=== PATIENT | male | born 1930 | race Caucasian/White ===

== ENCOUNTER 2016-12-28 17:44 | Inpatient (IN) | payer MEDICARE, BC ==
[2016-12-28] MEDS ORDERED: Sodium Chloride 0.9% 10 ML Syringe FLUSH PRN (18:05)
[2016-12-28] MEDS ORDERED: Sodium Chloride 0.9% 2.5 ML Syringe FLUSH PRN (18:05)
[2016-12-28] MEDS ORDERED: Albuterol/Ipratropium 3.0-0.5 MG/3 ML Neb Soln NEB ONE (18:13)
--- NOTE | 2016-12-28 18:14 | EDM.PDOC ---
<Esthela Singletary - Last Filed: 12/28/16 18:57> ED HISTORY OF PRESENT ILLNESS - General Chief Complaint: Respiratory Problem Stated Complaint: COUGH/SICK/SHORT OF BREATH Time Seen by Provider: 12/28/16 18:07 - History of Present Illness INITIAL COMMENTS - FREE TEXT/NARRATIVE: HISTORY AND PHYSICAL: History of present illness: The patient is an 86-year-old male with a history of hypertension high cholesterol A. fib on Coumadin diabetes and recent admission for influenza pneumonia; the patient presents today stating that he has a renewed cough and feels short of breath and "sick". According to the discharge note the patient was admitted for 2-1/2 days and was discharged one day early on every 20 seconds to do his request. He was doing well at that time. He finished his Tamiflu yesterday. During his admission he did have an episode of A. fib/A. flutter with RVR which responded to Cardizem and he was placed on metoprolol at discharge which he did not take today because his blood pressure was too low. The patient normally takes his diltiazem in the evening so he has not taken that this evening either. The patient states he's been eating well and has not had abdominal pain vomiting or diarrhea he does have a persistent cough which is dry and nonproductive and he feels somewhat short of breath. He states he the same symptoms he had when he was in the hospital. He has no leg pain or swelling and has had no falls. Patient is here with at bedside. The patient denies any palpitations or racing heart and is not lightheaded or dizzy. He doesn't have any focal weakness in any of his extremities but does feel somewhat run down. Review of systems: As per history of present illness and below otherwise all systems reviewed and negative. Past medical history: As per history of present illness and as reviewed below otherwise noncontributory. Surgical history: As per history of present illness and as reviewed below otherwise noncontributory. Social history: No reported history of drug or alcohol abuse. Family history: As per history of present illness and as reviewed below otherwise noncontributory. Physical exam: General: Well-developed well-nourished man who speaks clearly without breathlessness and has a dry cough heard in the ER. He speaks clearly and easily on my evaluation it appears nontoxic. HEENT: Atraumatic, normocephalic, pupils reactive, negative for conjunctival pallor or scleral icterus, mucous membranes moist, throat clear, neck supple, nontender, trachea midline. No cervical adenopathy Lungs: Clear to auscultation with scattered coarse breath sounds and diminished breath sounds at the bases but no work of breathing or sensory muscle use, breath sounds equal bilaterally, chest nontender. Heart: S1S2, regular rate but irregular rhythm on my evaluation, negative for clicks, rubs, or JVD. Abdomen: Soft, nondistended, nontender. Negative for masses or hepatosplenomegaly. NABS Skin: Slightly pale in color but no evidence of any overt rashes and turgor appears normal Genitourinary: Deferred. Rectal: Deferred. Extremities: Atraumatic, negative for cords or calf pain. Neurovascular unremarkable. Neuro: Awake, alert, oriented. Cranial nerves II through XII unremarkable. Cerebellum unremarkable. Motor and sensory unremarkable throughout. Exam nonfocal. Diagnostics: EKG CBC CMP INR troponin lactic acid blood cultures if indicated chest x-ray [employer]: Rebecca neb 1900 hours--case was endorsed to Dr. Antony who will followup the pending test results and disposition the patient. Impression: Definitive disposition and diagnosis as appropriate pending reevaluation and review of above. - Related Data Allergies/ADRs: Allergies Allergy/AdvReac Type Severity Reaction Status Date / Time acetaminophen Allergy Headache Verified 12/28/16 17:58 [From Excedrin Back and Body] aspirin Allergy Headache Verified 12/28/16 17:58 [From Excedrin Back and Body] calcium carbonate Allergy Headache Verified 12/28/16 17:58 [From Excedrin Back and Body] moexipril [From Univasc] Allergy Cough Verified 12/28/16 17:58 terazosin [From Hytrin] Allergy Rash Verified 12/28/16 17:58 Home Meds: Home Meds Aspirin [Halfprin] 81 mg PO BEDTIME 12/23/16 [History] Calcitriol [Rocaltrol] 0.25 mcg PO DAILY 12/23/16 [History] Cholecalciferol (Vitamin D3) [Vitamin D3] 1,000 unit PO QAM 12/23/16 [History] Diltiazem [Dilacor XR] 240 mg PO DAILY 12/23/16 [History] Dutasteride 0.5 mg PO DAILY 12/23/16 [History] Folic Acid 1 mg PO DAILY 12/23/16 [History] Furosemide [Lasix] 20 mg PO QAM 12/23/16 [History] Gemfibrozil 600 mg PO BID 12/23/16 [History] Insulin Glargine,Hum.Rec.Anlog [Toujeo Solostar] 14 unit SQ BEDTIME 12/23/16 [ History] Linagliptin [Tradjenta] 5 mg PO DAILY 12/23/16 [History] Lisinopril 1.25 mg PO DAILY 12/23/16 [History] Sodium Bicarbonate 1,300 mg PO BID 12/23/16 [History] Tamsulosin [Flomax] 0.8 mg PO BEDTIME 12/23/16 [History] Warfarin [Coumadin] 7.5 mg PO SUMOTUTHFR 12/23/16 [History] Warfarin [Coumadin] 10 mg PO WESA 12/23/16 [History] amLODIPine [Norvasc] 5 mg PO DAILY 12/23/16 [History] Beta-Carotene(A) w/C & E/Min [Prosight] 1 tab PO BID tablet 12/26/16 [Rx] Metoprolol Succinate 50 mg PO DAILY #30 tab.er.24h 12/26/16 [Rx] Oseltamivir [Tamiflu] 30 mg PO DAILY #1 bottle 12/26/16 [Rx] Patient's Own Medication [Ptom] 0 each SUBCUT BEDTIME each 12/26/16 [Rx] Warfarin [Coumadin] 7.5 mg PO DAILY@1400 tablet 12/26/16 [Rx] Past Medical History - Past Health History Medical/Surgical History: Denies Medical/Surgical History HEENT History: Reports: Impaired vision, Other (see below) 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, 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 Cardiovascular History: Reports: Afib, Hypertension, ID, Pacemaker Neurological History: Reports: TIA Endocrine/Metabolic History: Reports: Diabetes, type II Oncologic (Cancer) History: Reports: Other (see below) Other Oncologic History: bladder and kidney CA - Infectious Disease History Infectious Disease History: Reports: Chicken pox, Measles, Mumps - Past Surgical History Cardiovascular Surgical History: Reports: Pacer Male Surgical History: Reports: Other (see below) Other Male Surgeries/Procedures: removal of kidney Oncologic Surgical History: Reports: Other (see below) Other Oncologic Surgeries/Procedures: 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 Social & Family History - Family History Family Medical History: Noncontributory - Tobacco Use Smoking Status *Q: Former Smoker Years of Tobacco use: 50 Packs/Tins Daily: 3 Used Tobacco, but Quit: Yes Month Tobacco Last Used: 1999 Second Hand Smoke Exposure: No - Caffeine Use Caffeine Use: Reports: Coffee Other Caffeine Use: 1-2 cups daily Caffeine Use Comment: 2cups/day - Recreational Drug Use Recreational Drug Use: No Course - Vital Signs Last Recorded V/S: Last Vital Signs Temp 36.6 C 12/28/16 17:58 Pulse 100 12/28/16 19:43 Resp 20 12/28/16 19:43 BP 124/16 L 12/28/16 19:43 Pulse Ox 96 12/28/16 19:43 - Orders/Labs/Meds Orders: Active Orders 24 hr Category Date Time Status Cardiac Monitoring [RC] . DIRECTED Care 12/28/16 18:05 Active EKG Documentation Completion [RC] STAT Care 12/28/16 18:05 Active Oxygen Therapy, ED [RC] ASDIRECTED Care 12/28/16 18:05 Active Pulse Oximetry [RC] ASDIRECTED Care 12/28/16 18:05 Active RT Aerosol Therapy [RC] ASDIRECTED Care 12/28/16 18:14 Active Chest 2V [CR] Stat Exams 12/28/16 18:06 Taken CPK [CREATINE KINASE,CK] [CHEM] Stat Lab 12/28/16 18:32 Received Sodium Chloride 0.9% [Normal Saline] 1,000 ml Med 12/28/16 20:45 Active IV STAT Sodium Chloride 0.9% [Saline Flush] Med 12/28/16 18:05 Active 10 ml FLUSH ASDIRECTED PRN Sodium Chloride 0.9% [Saline Flush] Med 12/28/16 18:05 Active 2.5 ml FLUSH ASDIRECTED PRN Saline Lock Insert [OM.PC] Stat Oth 12/28/16 18:05 Ordered Medication Orders Sodium Chloride (Normal Saline) 1,000 mls @ 125 mls/hr IV STAT DAJUAN Sodium Chloride (Saline Flush) 10 ml FLUSH ASDIRECTED PRN PRN Reason: Keep Vein Open Sodium Chloride (Saline Flush) 2.5 ml FLUSH ASDIRECTED PRN PRN Reason: Keep Vein Open Labs: Laboratory Tests 12/28/16 12/28/16 12/28/16 Range/Units 18:32 18:32 18:32 WBC 8.47 (4.0-11.0) K/uL RBC 3.53 L (4.50-5.90) M/uL Hgb 10.5 L (13.0-17.0) g/dL Hct 32.0 L (38.0-50.0) % MCV 90.7 (80.0-98.0) fL MCH 29.7 (27.0-32.0) pg MCHC 32.8 (31.0-37.0) g/dL RDW Std Deviation 49.1 (28.0-62.0) fl RDW Coeff of Davy 15 (11.0-15.0) % Plt Count 197 (150-400) K/uL MPV 10.90 (7.40-12.00) fL Add Manual Diff YES Neutrophils % (Manual) 66 (48.0-80.0) % Band Neutrophils % 2 % Lymphocytes % (Manual) 23 (16.0-40.0) % Monocytes % (Manual) 7 (0.0-15.0) % Eosinophils % (Manual) 2 (0.0-7.0) % Nucleated RBC % 0.0 /100WBC Absolute Seg Neuts 5.6 Band Neutrophils # 0.2 Lymphocytes # (Manual) 1.9 Monocytes # (Manual) 0.6 Eosinophils # (Manual) 0.2 Nucleated RBCs # 0 K/uL INR 3.46 H (0.86-1.11) Lactate 1.3 (0.20-2.00) mmol/L Sodium (136-146) mmol/L Potassium (3.5-5.1) mmol/L Chloride (98-110) mmol/L Carbon Dioxide (21-31) mmol/L BUN (6.0-23.0) mg/dL Creatinine (0.6-1.5) mg/dL Est Cr Clr Drug Dosing mL/min Estimated GFR (MDRD) ml/min Glucose (60-110) mg/dL Calcium (8.8-10.8) mg/dL Total Bilirubin (0.1-1.5) mg/dL AST (5-40) IU/L ALT (8-54) IU/L Alkaline Phosphatase (40-150) Troponin I (0.0-0.29) NG/ML Total Protein (6.0-8.0) g/dL Albumin (3.4-4.8) g/dL Globulin (2.0-3.5) g/dL Albumin/Globulin Ratio (1.3-2.8) Urine Color Urine Appearance Urine pH (5.0-8.0) Ur Specific [place] (1.001-1.035) Urine Protein (NEGATIVE) mg/dL Urine Glucose (UA) (NEGATIVE) mg/dL Urine Ketones (NEGATIVE) mg/dL Urine Occult Blood (NEGATIVE) Urine Nitrite (NEGATIVE) Urine Bilirubin (NEGATIVE) Urine Urobilinogen (<2.0) EU/dL Ur Leukocyte Esterase (NEGATIVE) Urine RBC (0-2/HPF) Urine WBC (0-5/HPF) Ur Epithelial Cells (NONE-FEW) Urine Bacteria (NEGATIVE) 12/28/16 12/28/16 12/28/16 Range/Units 18:32 18:32 18:47 WBC (4.0-11.0) K/uL RBC (4.50-5.90) M/uL Hgb (13.0-17.0) g/dL Hct (38.0-50.0) % MCV (80.0-98.0) fL MCH (27.0-32.0) pg MCHC (31.0-37.0) g/dL RDW Std Deviation (28.0-62.0) fl RDW Coeff of Davy (11.0-15.0) % Plt Count (150-400) K/uL MPV (7.40-12.00) fL Add Manual Diff Neutrophils % (Manual) (48.0-80.0) % Band Neutrophils % % Lymphocytes % (Manual) (16.0-40.0) % Monocytes % (Manual) (0.0-15.0) % Eosinophils % (Manual) (0.0-7.0) % Nucleated RBC % /100WBC Absolute Seg Neuts Band Neutrophils # Lymphocytes # (Manual) Monocytes # (Manual) Eosinophils # (Manual) Nucleated RBCs # K/uL INR (0.86-1.11) Lactate (0.20-2.00) mmol/L Sodium 140 (136-146) mmol/L Potassium 3.8 (3.5-5.1) mmol/L Chloride 108 (98-110) mmol/L Carbon Dioxide 18 L (21-31) mmol/L BUN 70 H (6.0-23.0) mg/dL Creatinine 2.8 H (0.6-1.5) mg/dL Est Cr Clr Drug Dosing 16.77 mL/min Estimated GFR (MDRD) 21.5 ml/min Glucose 124 H (60-110) mg/dL Calcium 8.9 (8.8-10.8) mg/dL Total Bilirubin 0.5 (0.1-1.5) mg/dL AST 53 H (5-40) IU/L ALT 49 (8-54) IU/L Alkaline Phosphatase 70 (40-150) Troponin I < 0.10 (0.0-0.29) NG/ML Total Protein 7.5 (6.0-8.0) g/dL Albumin 4.2 (3.4-4.8) g/dL Globulin 3.3 (2.0-3.5) g/dL Albumin/Globulin Ratio 1.3 (1.3-2.8) Urine Color YELLOW Urine Appearance CLEAR Urine pH 5.5 (5.0-8.0) Ur Specific [place] 1.010 (1.001-1.035) Urine Protein TRACE (NEGATIVE) mg/dL Urine Glucose (UA) NEGATIVE (NEGATIVE) mg/dL Urine Ketones NEGATIVE (NEGATIVE) mg/dL Urine Occult Blood NEGATIVE (NEGATIVE) Urine Nitrite NEGATIVE (NEGATIVE) Urine Bilirubin NEGATIVE (NEGATIVE) Urine Urobilinogen 0.2 (<2.0) EU/dL Ur Leukocyte Esterase NEGATIVE (NEGATIVE) Urine RBC 0-2 (0-2/HPF) Urine WBC 0-1 (0-5/HPF) Ur Epithelial Cells RARE (NONE-FEW) Urine Bacteria RARE (NEGATIVE) Meds: Medications Generic Name Dose Route Start Last Admin Trade Name Freq PRN Reason Stop Dose Admin Sodium Chloride 1,000 mls @ 125 mls/hr 12/28/16 20:45 Normal Saline IV STAT DAJUAN Sodium Chloride 10 ml 12/28/16 18:05 Saline Flush FLUSH ASDIRECTED PRN Keep Vein Open Sodium Chloride 2.5 ml 12/28/16 18:05 Saline Flush FLUSH ASDIRECTED PRN Keep Vein Open Discontinued Medications Generic Name Dose Route Start Last Admin Trade Name Kiana PRN Reason Stop Dose Admin Albuterol/Ipratropium 3 ml 12/28/16 18:13 12/28/16 18:24 Duoneb 3.0-0.5 Mg/3 Ml NEB 12/28/16 18:14 3 ml ONETIME ONE Administration Metoprolol Tartrate 5 mg 12/28/16 18:18 12/28/16 18:53 Lopressor IVPUSH 12/28/16 18:19 5 mg ONETIME ONE Administration Departure - Departure Disposition: Admitted As Inpatient 65 Clinical Impression: Dehydration Forms: ED Department Discharge - My Orders Last 24 Hours: My Active Orders 12/28/16 18:32 CPK [CREATINE KINASE,CK] [CHEM] Stat 12/28/16 20:45 Sodium Chloride 0.9% [Normal Saline] 1,000 ml IV STAT - Assessment/Plan Last 24 Hours: My Active Orders 12/28/16 18:32 CPK [CREATINE KINASE,CK] [CHEM] Stat 12/28/16 20:45 Sodium Chloride 0.9% [Normal Saline] 1,000 ml IV STAT <Salvador Antony - Last Filed: 12/28/16 20:41> ED HISTORY OF PRESENT ILLNESS - History of Present Illness INITIAL COMMENTS - FREE TEXT/NARRATIVE: Patient admitted normal saline 125 cc per hour started Assessment Dehydration A. fib with RVR Renal insufficiency Influenza positive At infiltrate on chest x-ray Patient admitted inpatient [facility] ED ROS GENERAL - Review of Systems Review Of Systems: ROS reveals no pertinent complaints other than HPI. ED EXAM, GENERAL - Physical Exam Exam: See Below Departure - Departure Time of Disposition: 20:41 Condition: poor
[2016-12-28] MEDS ORDERED: Metoprolol Tartrate 5 MG/5 ML SDV IVPUSH ONE (18:18)
[2016-12-28] MEDS ORDERED: Sodium Chloride 0.9% 1,000 ML IV SCH ×2 (20:45→22:00)
--- NOTE | 2016-12-28 21:44 | PCM.HP ---
H&P History of Present Illness - General Date of Service: 12/28/16 Admit Problem/Dx: Admission Diagnosis/Problem Admission Diagnosis/Problem Influenza Source of Information: Patient, Family, Old records, Provider - History of Present Illness Initial Comments - Free Text/Narative: He was discharged from the hospital on this last Saturday. He had been admitted for influenza and atrial fibrillation with RVR. It was thought that he might have an influenza pneumonia. He was given levofloxacin. It was recommended that he stay longer in the hospital but he insisted on early discharge. Now he has severe malaise. He was noted in the ER to have an increase in his serum creatinine above his baseline of about 2.4. He takes lasix at home. IN the ER it was noted that he was in atrial fibrillation with RVR. HE denies chest pain or palpitations. - Related Data Allergies/Adverse Reactions: Allergies Allergy/AdvReac Type Severity Reaction Status Date / Time acetaminophen Allergy Headache Verified 12/28/16 17:58 [From Excedrin Back and Body] aspirin Allergy Headache Verified 12/28/16 17:58 [From Excedrin Back and Body] calcium carbonate Allergy Headache Verified 12/28/16 17:58 [From Excedrin Back and Body] moexipril [From Univasc] Allergy Cough Verified 12/28/16 17:58 terazosin [From Hytrin] Allergy Rash Verified 12/28/16 17:58 Home Medications: Home Meds Aspirin [Halfprin] 81 mg PO BEDTIME 12/23/16 [History] Calcitriol [Rocaltrol] 0.25 mcg PO DAILY 12/23/16 [History] Cholecalciferol (Vitamin D3) [Vitamin D3] 1,000 unit PO QAM 12/23/16 [History] Diltiazem [Dilacor XR] 240 mg PO DAILY 12/23/16 [History] Dutasteride 0.5 mg PO DAILY 12/23/16 [History] Folic Acid 1 mg PO DAILY 12/23/16 [History] Furosemide [Lasix] 20 mg PO QAM 12/23/16 [History] Gemfibrozil 600 mg PO BID 12/23/16 [History] Insulin Glargine,Hum.Rec.Anlog [Vince Silva] 14 unit SQ BEDTIME 12/23/16 [ History] Linagliptin [Tradjenta] 5 mg PO DAILY 12/23/16 [History] Lisinopril 1.25 mg PO DAILY 12/23/16 [History] Sodium Bicarbonate 1,300 mg PO BID 12/23/16 [History] Tamsulosin [Flomax] 0.8 mg PO BEDTIME 12/23/16 [History] Warfarin [Coumadin] 7.5 mg PO SUMOTUTHFR 12/23/16 [History] Warfarin [Coumadin] 10 mg PO WESA 12/23/16 [History] amLODIPine [Norvasc] 5 mg PO DAILY 12/23/16 [History] Beta-Carotene(A) w/C & E/Min [Prosight] 1 tab PO BID tablet 12/26/16 [Rx] Metoprolol Succinate 50 mg PO DAILY #30 tab.er.24h 12/26/16 [Rx] Oseltamivir [Tamiflu] 30 mg PO DAILY #1 bottle 12/26/16 [Rx] Patient's Own Medication [Ptom] 0 each SUBCUT BEDTIME each 12/26/16 [Rx] Warfarin [Coumadin] 7.5 mg PO DAILY@1400 tablet 12/26/16 [Rx] Past Medical History - Past Health History Medical/Surgical History: Denies Medical/Surgical History HEENT History: Reports: Impaired vision, Other (see below) 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, 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 Cardiovascular History: Reports: Afib, Hypertension, [place], Pacemaker Respiratory History: Denies: Cystic Fibrosis, Pulmonary fibrosis Gastrointestinal History: Denies: Cirrhosis Genitourinary History: Reports: Chronic renal insuffiency, Other (see below) ( prior right nephrectomy for cancer;) Neurological History: Reports: TIA Endocrine/Metabolic History: Reports: Diabetes, type II Oncologic (Cancer) History: Reports: Other (see below) Other Oncologic History: bladder and kidney CA - Infectious Disease History Infectious Disease History: Reports: Chicken pox, Measles, Mumps - Past Surgical History Cardiovascular Surgical History: Reports: Pacer Male Surgical History: Reports: Other (see below) Other Male Surgeries/Procedures: removal of kidney Oncologic Surgical History: Reports: Other (see below) Other Oncologic Surgeries/Procedures: 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 Denies: fever, chills HEENT: Reports: other (left eye absent; he has a left eye prosthesis) Pulmonary: Reports: cough. Denies: shortness of breath Cardiovascular: Denies: chest pain, palpitations, edema Gastrointestinal: Denies: Abdominal pain, Black stool, Hematochezia, Melena, Vomiting Genitourinary: Denies: dysuria, hematuria Skin: Denies: cyanosis Neurological: Denies: confusion Exam - Exam Exam: See Below - Vital Signs Vital Signs: Last Vital Signs Temp 97.8 F 12/28/16 17:58 Pulse 100 12/28/16 19:43 Resp 20 12/28/16 19:43 BP 124/16 L 12/28/16 19:43 Pulse Ox 96 12/28/16 19:43 Weight: 81.647 kg - Exam General: alert, oriented, cooperative HEENT: EOMI, Other (right eye prosthesis with slight mucoid discharge) Neck: supple, trachea midline Lungs: Clear to auscultation, Normal respiratory effort Cardiovascular: irregular rhythm Abdomen: soft. No: tenderness (Male) Exam: Deferred Rectal (Males) Exam: Deferred Extremities: other (trace ankle edema) Neurological: cranial nerves intact, normal speech Neuro Extensive - Motor, Sensory, Reflexes: CN II-XII intact. No: facial palsy (L), facial palsy (R), hemiplagia (L), hemiplagia (R) Psychiatric: alert, normal affect. No: agitated - Patient Data Lab Results last 24 hrs: Laboratory Results - last 24 hr 12/28/16 12/28/16 12/28/16 Range/Units 18:32 18:32 18:32 WBC 8.47 (4.0-11.0) K/uL RBC 3.53 L (4.50-5.90) M/uL Hgb 10.5 L (13.0-17.0) g/dL Hct 32.0 L (38.0-50.0) % MCV 90.7 (80.0-98.0) fL MCH 29.7 (27.0-32.0) pg MCHC 32.8 (31.0-37.0) g/dL RDW Std Deviation 49.1 (28.0-62.0) fl RDW Coeff of Davy 15 (11.0-15.0) % Plt Count 197 (150-400) K/uL MPV 10.90 (7.40-12.00) fL Add Manual Diff YES Neutrophils % (Manual) 66 (48.0-80.0) % Band Neutrophils % 2 % Lymphocytes % (Manual) 23 (16.0-40.0) % Monocytes % (Manual) 7 (0.0-15.0) % Eosinophils % (Manual) 2 (0.0-7.0) % Nucleated RBC % 0.0 /100WBC Absolute Seg Neuts 5.6 Band Neutrophils # 0.2 Lymphocytes # (Manual) 1.9 Monocytes # (Manual) 0.6 Eosinophils # (Manual) 0.2 Nucleated RBCs # 0 K/uL INR 3.46 H (0.86-1.11) Lactate 1.3 (0.20-2.00) mmol/L Sodium (136-146) mmol/L Potassium (3.5-5.1) mmol/L Chloride (98-110) mmol/L Carbon Dioxide (21-31) mmol/L BUN (6.0-23.0) mg/dL Creatinine (0.6-1.5) mg/dL Est Cr Clr Drug Dosing mL/min Estimated GFR (MDRD) ml/min Glucose (60-110) mg/dL Calcium (8.8-10.8) mg/dL Total Bilirubin (0.1-1.5) mg/dL AST (5-40) IU/L ALT (8-54) IU/L Alkaline Phosphatase (40-150) Creatine Kinase (9-236) IU/L Troponin I (0.0-0.29) NG/ML Total Protein (6.0-8.0) g/dL Albumin (3.4-4.8) g/dL Globulin (2.0-3.5) g/dL Albumin/Globulin Ratio (1.3-2.8) Urine Color Urine Appearance Urine pH (5.0-8.0) Ur Specific [place] (1.001-1.035) Urine Protein (NEGATIVE) mg/dL Urine Glucose (UA) (NEGATIVE) mg/dL Urine Ketones (NEGATIVE) mg/dL Urine Occult Blood (NEGATIVE) Urine Nitrite (NEGATIVE) Urine Bilirubin (NEGATIVE) Urine Urobilinogen (<2.0) EU/dL Ur Leukocyte Esterase (NEGATIVE) Urine RBC (0-2/HPF) Urine WBC (0-5/HPF) Ur Epithelial Cells (NONE-FEW) Urine Bacteria (NEGATIVE) 12/28/16 12/28/16 12/28/16 Range/Units 18:32 18:32 18:32 WBC (4.0-11.0) K/uL RBC (4.50-5.90) M/uL Hgb (13.0-17.0) g/dL Hct (38.0-50.0) % MCV (80.0-98.0) fL MCH (27.0-32.0) pg MCHC (31.0-37.0) g/dL RDW Std Deviation (28.0-62.0) fl RDW Coeff of Davy (11.0-15.0) % Plt Count (150-400) K/uL MPV (7.40-12.00) fL Add Manual Diff Neutrophils % (Manual) (48.0-80.0) % Band Neutrophils % % Lymphocytes % (Manual) (16.0-40.0) % Monocytes % (Manual) (0.0-15.0) % Eosinophils % (Manual) (0.0-7.0) % Nucleated RBC % /100WBC Absolute Seg Neuts Band Neutrophils # Lymphocytes # (Manual) Monocytes # (Manual) Eosinophils # (Manual) Nucleated RBCs # K/uL INR (0.86-1.11) Lactate (0.20-2.00) mmol/L Sodium 140 (136-146) mmol/L Potassium 3.8 (3.5-5.1) mmol/L Chloride 108 (98-110) mmol/L Carbon Dioxide 18 L (21-31) mmol/L BUN 70 H (6.0-23.0) mg/dL Creatinine 2.8 H (0.6-1.5) mg/dL Est Cr Clr Drug Dosing 16.77 mL/min Estimated GFR (MDRD) 21.5 ml/min Glucose 124 H (60-110) mg/dL Calcium 8.9 (8.8-10.8) mg/dL Total Bilirubin 0.5 (0.1-1.5) mg/dL AST 53 H (5-40) IU/L ALT 49 (8-54) IU/L Alkaline Phosphatase 70 (40-150) Creatine Kinase 234 (9-236) IU/L Troponin I < 0.10 (0.0-0.29) NG/ML Total Protein 7.5 (6.0-8.0) g/dL Albumin 4.2 (3.4-4.8) g/dL Globulin 3.3 (2.0-3.5) g/dL Albumin/Globulin Ratio 1.3 (1.3-2.8) Urine Color Urine Appearance Urine pH (5.0-8.0) Ur Specific [place] (1.001-1.035) Urine Protein (NEGATIVE) mg/dL Urine Glucose (UA) (NEGATIVE) mg/dL Urine Ketones (NEGATIVE) mg/dL Urine Occult Blood (NEGATIVE) Urine Nitrite (NEGATIVE) Urine Bilirubin (NEGATIVE) Urine Urobilinogen (<2.0) EU/dL Ur Leukocyte Esterase (NEGATIVE) Urine RBC (0-2/HPF) Urine WBC (0-5/HPF) Ur Epithelial Cells (NONE-FEW) Urine Bacteria (NEGATIVE) 12/28/16 Range/Units 18:47 WBC (4.0-11.0) K/uL RBC (4.50-5.90) M/uL Hgb (13.0-17.0) g/dL Hct (38.0-50.0) % MCV (80.0-98.0) fL MCH (27.0-32.0) pg MCHC (31.0-37.0) g/dL RDW Std Deviation (28.0-62.0) fl RDW Coeff of Davy (11.0-15.0) % Plt Count (150-400) K/uL MPV (7.40-12.00) fL Add Manual Diff Neutrophils % (Manual) (48.0-80.0) % Band Neutrophils % % Lymphocytes % (Manual) (16.0-40.0) % Monocytes % (Manual) (0.0-15.0) % Eosinophils % (Manual) (0.0-7.0) % Nucleated RBC % /100WBC Absolute Seg Neuts Band Neutrophils # Lymphocytes # (Manual) Monocytes # (Manual) Eosinophils # (Manual) Nucleated RBCs # K/uL INR (0.86-1.11) Lactate (0.20-2.00) mmol/L Sodium (136-146) mmol/L Potassium (3.5-5.1) mmol/L Chloride (98-110) mmol/L Carbon Dioxide (21-31) mmol/L BUN (6.0-23.0) mg/dL Creatinine (0.6-1.5) mg/dL Est Cr Clr Drug Dosing mL/min Estimated GFR (MDRD) ml/min Glucose (60-110) mg/dL Calcium (8.8-10.8) mg/dL Total Bilirubin (0.1-1.5) mg/dL AST (5-40) IU/L ALT (8-54) IU/L Alkaline Phosphatase (40-150) Creatine Kinase (9-236) IU/L Troponin I (0.0-0.29) NG/ML Total Protein (6.0-8.0) g/dL Albumin (3.4-4.8) g/dL Globulin (2.0-3.5) g/dL Albumin/Globulin Ratio (1.3-2.8) Urine Color YELLOW Urine Appearance CLEAR Urine pH 5.5 (5.0-8.0) Ur Specific [place] 1.010 (1.001-1.035) Urine Protein TRACE (NEGATIVE) mg/dL Urine Glucose (UA) NEGATIVE (NEGATIVE) mg/dL Urine Ketones NEGATIVE (NEGATIVE) mg/dL Urine Occult Blood NEGATIVE (NEGATIVE) Urine Nitrite NEGATIVE (NEGATIVE) Urine Bilirubin NEGATIVE (NEGATIVE) Urine Urobilinogen 0.2 (<2.0) EU/dL Ur Leukocyte Esterase NEGATIVE (NEGATIVE) Urine RBC 0-2 (0-2/HPF) Urine WBC 0-1 (0-5/HPF) Ur Epithelial Cells RARE (NONE-FEW) Urine Bacteria RARE (NEGATIVE) Result Diagrams: 12/28/16 18:32 12/28/16 18:32 *Q Meaningful Use (ADM) - VTE *Q VTE Criteria *Q: - Stroke *Q Stroke Criteria *Q: - AMI *Q AMI Criteria *Q: Problem List Initiated/Reviewed/Updated: Yes Orders Last 24hrs: Active Orders 24 hr Category Date Time Status Admission Status [Patient Status] [ADT] Stat ADT 12/28/16 20:41 Active Cardiac Monitoring [RC] . DIRECTED Care 12/28/16 18:05 Active EKG Documentation Completion [RC] STAT Care 12/28/16 18:05 Active Oxygen Therapy, ED [RC] ASDIRECTED Care 12/28/16 18:05 Active Pulse Oximetry [RC] ASDIRECTED Care 12/28/16 18:05 Active RT Aerosol Therapy [RC] ASDIRECTED Care 12/28/16 18:14 Active Chest 2V [CR] Stat Exams 12/28/16 18:06 Taken Sodium Chloride 0.9% [Normal Saline] 1,000 ml Med 12/28/16 20:45 Active IV STAT Sodium Chloride 0.9% [Saline Flush] Med 12/28/16 18:05 Active 10 ml FLUSH ASDIRECTED PRN Sodium Chloride 0.9% [Saline Flush] Med 12/28/16 18:05 Active 2.5 ml FLUSH ASDIRECTED PRN Saline Lock Insert [OM.PC] Stat Oth 12/28/16 18:05 Ordered Medication Orders Sodium Chloride (Normal Saline) 1,000 mls @ 125 mls/hr IV STAT DAJUAN Sodium Chloride (Saline Flush) 10 ml FLUSH ASDIRECTED PRN PRN Reason: Keep Vein Open Sodium Chloride (Saline Flush) 2.5 ml FLUSH ASDIRECTED PRN PRN Reason: Keep Vein Open Assessment/Plan Comment:: 12/28/2016 malaise influenza acute on chronic renal faillure possible post influenza pneumonia atrial fibrillation with RVR admit to observation see orders Amado Berkowitz MD
[2016-12-28] MEDS ORDERED: Ondansetron 4 MG/2 ML SDV IVPUSH PRN (21:50)
[2016-12-28] MEDS ORDERED: Ondansetron 4 MG Tab.DIS PO PRN (21:50)
[2016-12-28] MEDS ORDERED: Acetaminophen 325 MG Tab PO PRN (21:50)
[2016-12-28] MEDS ORDERED: Metoprolol Succinate 50 MG Tab.ER PO ONE (21:56)
[2016-12-28] MEDS ORDERED: Levofloxacin/Dextrose 5%-Water 750 MG in Premix Bag 1 BAG IV SCH (22:00)
[2016-12-28] MEDS: Albuterol/Ipratropium 3.0-0.5 MG/3 ML Neb Soln NEB SCH (23:34)
[2016-12-28] MEDS: Insulin Aspart 100 Units/ML 3 ML Pen SUBCUT SCH (23:37)
[2016-12-29] MEDS ORDERED: Metoprolol Succinate 50 MG Tab.ER PO ONE (00:33)
[2016-12-29] MEDS: Albuterol/Ipratropium 3.0-0.5 MG/3 ML Neb Soln NEB SCH ×6 (01:55→21:32)
[2016-12-29] MEDS: Insulin Aspart 100 Units/ML 3 ML Pen SUBCUT SCH ×4 (07:03→21:25)
[2016-12-29] MEDS: Calcitriol 0.25 MCG Cap PO SCH (08:02)
[2016-12-29] MEDS: Dutasteride 0.5 MG Cap PO SCH (08:03)
[2016-12-29] MEDS: Gemfibrozil 600 MG Tab PO SCH ×2 (08:03→21:24)
[2016-12-29] MEDS: Folic Acid 1 MG Tab PO SCH (08:03)
[2016-12-29] MEDS: Metoprolol Succinate 50 MG Tab.ER PO SCH ×2 (08:03→21:22)
[2016-12-29] MEDS: Beta-Carotene (Vitamin A) w/Vitamin C & E plus Minerals Tab PO SCH ×2 (08:03→21:24)
[2016-12-29] MEDS ORDERED: Diltiazem 120 MG Cap.CD PO SCH (09:00)
[2016-12-29] MEDS ORDERED: LINAGLIPTIN 5 MG PO SCH (09:00)
[2016-12-29] MEDS ORDERED: [UNRECOGNIZED DRUG - OTHER] PO SCH (09:00)
[2016-12-29] MEDS ORDERED: Non-Formulary Medication 1 Each (Diltiazem 240 MG) PO SCH (09:00)
[2016-12-29] MEDS ORDERED: Diltiazem 120 MG Cap.CD PO ONE (12:45)
--- NOTE | 2016-12-29 13:42 | PCM.PN ---
- General Info Date of Service: 12/29/16 - Review of Systems Systems Review Comment:: he hopes to be discharged on Saturday. - Patient Data Vitals - most recent: Last Vital Signs Temp 99.2 F 12/29/16 12:00 Pulse 115 H 12/29/16 12:00 Resp 20 12/29/16 12:00 BP 133/85 12/29/16 12:00 Pulse Ox 94 L 12/29/16 12:00 Weight - most recent: 76.2 kg I&O - last 24 hours: Intake & Output 12/28/16 12/29/16 12/29/16 22:59 06:59 14:59 Intake Total 550 Output Total 450 Balance 100 Lab Results last 24 hrs: Laboratory Results - last 24 hr 12/28/16 12/29/16 12/29/16 Range/Units 23:35 05:50 05:50 WBC 7.16 (4.0-11.0) K/uL RBC 3.42 L (4.50-5.90) M/uL Hgb 10.1 L (13.0-17.0) g/dL Hct 31.1 L (38.0-50.0) % MCV 90.9 (80.0-98.0) fL MCH 29.5 (27.0-32.0) pg MCHC 32.5 (31.0-37.0) g/dL RDW Std Deviation 48.8 (28.0-62.0) fl RDW Coeff of Davy 15 (11.0-15.0) % Plt Count 198 (150-400) K/uL MPV 10.80 (7.40-12.00) fL Neut % (Auto) 61.9 (48.0-80.0) % Lymph % (Auto) 23.7 (16.0-40.0) % [place] % (Auto) 12.6 (0.0-15.0) % Eos % (Auto) 1.7 (0.0-7.0) % Baso % (Auto) 0.1 (0.0-1.5) % Neut # 4.4 (1.4-5.7) K/uL Lymph # 1.7 (0.6-2.4) K/uL [place] # 0.9 H (0.0-0.8) K/uL Eos # 0.1 (0.0-0.7) K/uL Baso # 0.0 (0.0-0.1) K/uL Nucleated RBC % 0.0 /100WBC Nucleated RBCs # 0 K/uL Sodium 143 (136-146) mmol/L Potassium 3.6 (3.5-5.1) mmol/L Chloride 112 H (98-110) mmol/L Carbon Dioxide 18 L (21-31) mmol/L BUN 62 H (6.0-23.0) mg/dL Creatinine 2.4 H (0.6-1.5) mg/dL Est Cr Clr Drug Dosing 19.57 mL/min Estimated GFR (MDRD) 25.7 ml/min Glucose 101 (60-110) mg/dL POC Glucose 129 H (60-110) mg/dL Calcium 8.4 L (8.8-10.8) mg/dL Phosphorus 3.1 (2.4-4.7) mg/dL Magnesium 2.0 (1.5-2.3) mEq/L 12/29/16 12/29/16 Range/Units 07:02 11:51 WBC (4.0-11.0) K/uL RBC (4.50-5.90) M/uL Hgb (13.0-17.0) g/dL Hct (38.0-50.0) % MCV (80.0-98.0) fL MCH (27.0-32.0) pg MCHC (31.0-37.0) g/dL RDW Std Deviation (28.0-62.0) fl RDW Coeff of Davy (11.0-15.0) % Plt Count (150-400) K/uL MPV (7.40-12.00) fL Neut % (Auto) (48.0-80.0) % Lymph % (Auto) (16.0-40.0) % [place] % (Auto) (0.0-15.0) % Eos % (Auto) (0.0-7.0) % Baso % (Auto) (0.0-1.5) % Neut # (1.4-5.7) K/uL Lymph # (0.6-2.4) K/uL [place] # (0.0-0.8) K/uL Eos # (0.0-0.7) K/uL Baso # (0.0-0.1) K/uL Nucleated RBC % /100WBC Nucleated RBCs # K/uL Sodium (136-146) mmol/L Potassium (3.5-5.1) mmol/L Chloride (98-110) mmol/L Carbon Dioxide (21-31) mmol/L BUN (6.0-23.0) mg/dL Creatinine (0.6-1.5) mg/dL Est Cr Clr Drug Dosing mL/min Estimated GFR (MDRD) ml/min Glucose (60-110) mg/dL POC Glucose 148 H 118 H (60-110) mg/dL Calcium (8.8-10.8) mg/dL Phosphorus (2.4-4.7) mg/dL Magnesium (1.5-2.3) mEq/L Med Orders - Current: Current Medications Acetaminophen (Tylenol) 650 mg PO Q4H PRN PRN Reason: Pain (Mild 1-3)/fever Albuterol/Ipratropium (Duoneb 3.0-0.5 Mg/3 Ml) 3 ml NEB Q4HRRT [facility] Last Admin: 12/29/16 05:52 Dose: Not Given Aspirin (Halfprin) 81 mg PO BEDTIME [facility] Calcitriol (Rocaltrol) 0.25 mcg PO DAILY [facility] Last Admin: 12/29/16 08:02 Dose: 0.25 mcg Diltiazem HCl (Cardizem Cd) 360 mg PO DAILY [facility] Dutasteride (Avodart) 0.5 mg PO DAILY [facility] Last Admin: 12/29/16 08:03 Dose: 0.5 mg Folic Acid (Folic Acid) 1 mg PO DAILY [facility] Last Admin: 12/29/16 08:03 Dose: 1 mg Gemfibrozil (Lopid) 600 mg PO BID [facility] Last Admin: 12/29/16 08:03 Dose: 600 mg Sodium Chloride (Normal Saline) 1,000 mls @ 125 mls/hr IV STAT [facility] Last Admin: 12/28/16 23:29 Dose: 125 mls/hr Sodium Chloride (Normal Saline) 1,000 mls @ 125 mls/hr IV ASDIRECTED [facility] Last Admin: 12/29/16 08:13 Dose: 125 mls/hr Insulin Aspart (Novolog) 0 unit SUBCUT ACBED [facility] PRN Reason: Protocol Last Admin: 12/29/16 07:03 Dose: Not Given Insulin Glargine (Lantus Solostar) 14 units SUBCUT BEDTIME [facility] Metoprolol Succinate (Toprol Xl) 50 mg PO BID [facility] Last Admin: 12/29/16 08:03 Dose: 50 mg Multivitamins/Minerals (Prosight) 1 tab PO BID [facility] Last Admin: 12/29/16 08:03 Dose: 1 tab Ondansetron HCl (Zofran Odt) 4 mg PO Q4H PRN PRN Reason: nausea, able to take PO Ondansetron HCl (Zofran) 4 mg IVPUSH Q4H PRN PRN Reason: Nausea Linagliptin 5 Mg (Tablet) 1 each PO DAILY [facility] Last Admin: 12/29/16 11:03 Dose: Not Given Sodium Chloride (Saline Flush) 10 ml FLUSH ASDIRECTED PRN PRN Reason: Keep Vein Open Sodium Chloride (Saline Flush) 2.5 ml FLUSH ASDIRECTED PRN PRN Reason: Keep Vein Open Tamsulosin HCl (Flomax) 0.8 mg PO BEDTIME [facility] Discontinued Medications Albuterol/Ipratropium (Duoneb 3.0-0.5 Mg/3 Ml) 3 ml NEB ONETIME ONE Stop: 12/28/16 18:14 Last Admin: 12/28/16 18:24 Dose: 3 ml Diltiazem HCl (Cardizem Cd) 240 mg PO DAILY [facility] Last Admin: 12/29/16 08:03 Dose: 240 mg Diltiazem HCl (Cardizem Cd) 120 mg PO ONETIME ONE Stop: 12/29/16 12:46 Levofloxacin/Dextrose 750 mg/ (Premix) 150 mls @ 100 mls/hr IV Q48H [facility] Stop: 12/28/16 23:28 Last Admin: 12/28/16 23:30 Dose: 100 mls/hr Metoprolol Succinate (Toprol Xl) 50 mg PO ONETIME ONE Stop: 12/28/16 21:57 Last Admin: 12/29/16 01:57 Dose: Not Given Metoprolol Succinate (Toprol Xl) 50 mg PO ONETIME ONE Stop: 12/29/16 00:34 Last Admin: 12/29/16 00:40 Dose: 50 mg Metoprolol Tartrate (Lopressor) 5 mg IVPUSH ONETIME ONE Stop: 12/28/16 18:19 Last Admin: 12/28/16 18:53 Dose: 5 mg - Exam General: alert, oriented Lungs: Normal respiratory effort, Other (slightly coarse breath sounds) Cardiovascular: regular rate, regular rhythm Extremities: no edema Psy/Mental Status: alert. No: agitated - Problem List & Annotations (1) Atrial fibrillation with RVR SNOMED Code(s): 219212219946172 Code(s): I48.91 - UNSPECIFIED ATRIAL FIBRILLATION Status: Acute Current Visit: Yes (2) Influenza SNOMED Code(s): 7043199 Code(s): J11.1 - FLU DUE TO UNIDENTIFIED INFLUENZA VIRUS W OTH RESP MANIFEST Status: Acute Current Visit: No (3) Acute on chronic renal failure SNOMED Code(s): 658374676 Code(s): N17.9 - ACUTE KIDNEY FAILURE, UNSPECIFIED; N18.9 - CHRONIC KIDNEY DISEASE, UNSPECIFIED Status: Acute Current Visit: Yes - Problem List Review Problem List Initiated/Reviewed/Updated: Yes - My Orders Last 24 Hours: My Active Orders 12/28/16 21:30 Telemetry Monitoring [Cardiac Monitoring] [RC] . DIRECTED 12/28/16 21:50 Oxygen Therapy [RC] PRN VTE/DVT Education [RC] PER UNIT ROUTINE Vital Signs [RC] Q4H Acetaminophen [Tylenol] 650 mg PO Q4H PRN Ondansetron [Zofran ODT] 4 mg PO Q4H PRN Ondansetron [Zofran] 4 mg IVPUSH Q4H PRN Resuscitation Status Routine 12/28/16 21:59 RT Aerosol Therapy [RC] ASDIRECTED 12/28/16 22:00 Albuterol/Ipratropium [DuoNeb 3.0-0.5 MG/3 ML] 3 ml NEB Q4HRRT Sodium Chloride 0.9% [Normal Saline] 1,000 ml IV ASDIRECTED 12/28/16 22:02 POC Glucose [Blood Glucose Check, Bedside] [RC] QIDACANDBED 12/28/16 22:15 Insulin Aspart [NovoLOG] See Protocol SUBCUT ACBED 12/28/16 Dinner [employer] Diet [DIET] 12/29/16 09:00 Beta-Carotene(A) w/C & E/Min [Prosight] 1 tab PO BID Calcitriol [Rocaltrol] 0.25 mcg PO DAILY Dutasteride [Avodart] 0.5 mg PO DAILY Folic Acid 1 mg PO DAILY Gemfibrozil [Lopid] 600 mg PO BID Metoprolol Succinate [Toprol XL] 50 mg PO BID Patient's Own Medication [Ptom] 1 each PO DAILY 12/29/16 21:00 Aspirin [Halfprin] 81 mg PO BEDTIME Insulin Glarg,Human.Rec.Analog [LantUS Solostar] 14 units SUBCUT BEDTIME Tamsulosin [Flomax] 0.8 mg PO BEDTIME 12/30/16 05:11 BASIC METABOLIC PANEL,BMP [CHEM] AM CBC WITH AUTO DIFF [HEME] AM INR,PT,PROTHROMBIN TIME [COAG] AM MAGNESIUM [CHEM] AM 12/30/16 09:00 Diltiazem [Cardizem CD] 360 mg PO DAILY 12/31/16 05:11 BASIC METABOLIC PANEL,BMP [CHEM] AM CBC WITH AUTO DIFF [HEME] AM INR,PT,PROTHROMBIN TIME [COAG] AM MAGNESIUM [CHEM] AM 01/01/17 05:11 INR,PT,PROTHROMBIN TIME [COAG] AM - Plan Plan:: 12/28/2016 malaise influenza acute on chronic renal faillure possible post influenza pneumonia atrial fibrillation with RVR admit to observation see orders Amado Radford MD 12/29/2016 improving increase diltiazem improved serum creatinine possible discharge on Saturday Gael radford MD
[2016-12-29] MEDS ORDERED: Levofloxacin 500 MG Tab PO ONE (13:43)
[2016-12-29] MEDS ORDERED: Insulin Glargine,Human Rec. Analog 100 Units/ML 3 ML Pen SUBCUT SCH (21:00)
[2016-12-29] MEDS: Aspirin 81 MG Tab.EC PO SCH (21:23)
[2016-12-29] MEDS: Tamsulosin 0.4 MG Cap.ER PO SCH (21:23)
[2016-12-29] MEDS: TOUJEO SUBCUT SCH (22:23)
[2016-12-30] MEDS: Albuterol/Ipratropium 3.0-0.5 MG/3 ML Neb Soln NEB SCH ×5 (06:16→21:14)
[2016-12-30] MEDS: Insulin Aspart 100 Units/ML 3 ML Pen SUBCUT SCH ×4 (08:58→21:18)
[2016-12-30] MEDS: Calcitriol 0.25 MCG Cap PO SCH (09:10)
[2016-12-30] MEDS: Dutasteride 0.5 MG Cap PO SCH (09:11)
[2016-12-30] MEDS: Beta-Carotene (Vitamin A) w/Vitamin C & E plus Minerals Tab PO SCH ×2 (09:11→20:46)
[2016-12-30] MEDS: Diltiazem 120 MG Cap.CD PO SCH (09:13)
[2016-12-30] MEDS: Folic Acid 1 MG Tab PO SCH (09:23)
[2016-12-30] MEDS: Gemfibrozil 600 MG Tab PO SCH ×2 (09:23→20:58)
[2016-12-30] MEDS: Metoprolol Succinate 50 MG Tab.ER PO SCH ×2 (09:24→21:14)
--- NOTE | 2016-12-30 12:13 | PCM.PN ---
- General Info Date of Service: 12/30/16 - Review of Systems Systems Review Comment:: poor appetite itching rash on back - Patient Data Vitals - most recent: Last Vital Signs Temp 97.1 F 12/30/16 09:00 Pulse 75 12/30/16 09:24 Resp 16 12/30/16 09:00 BP 128/74 12/30/16 09:24 Pulse Ox 94 L 12/30/16 09:00 Weight - most recent: 76.2 kg I&O - last 24 hours: Intake & Output 12/29/16 12/30/16 12/30/16 22:59 06:59 14:59 Intake Total 850 1476 Output Total 750 1500 Balance 100 -24 Lab Results last 24 hrs: Laboratory Results - last 24 hr 12/29/16 12/29/16 12/30/16 Range/Units 16:30 21:20 05:45 WBC 9.34 (4.0-11.0) K/uL RBC 3.19 L (4.50-5.90) M/uL Hgb 9.5 L (13.0-17.0) g/dL Hct 30.2 L (38.0-50.0) % MCV 94.7 (80.0-98.0) fL MCH 29.8 (27.0-32.0) pg MCHC 31.5 (31.0-37.0) g/dL RDW Std Deviation 47.9 (28.0-62.0) fl RDW Coeff of Davy 14 (11.0-15.0) % Plt Count 223 (150-400) K/uL MPV 11.00 (7.40-12.00) fL Neut % (Auto) 68.2 (48.0-80.0) % Lymph % (Auto) 17.8 (16.0-40.0) % [place] % (Auto) 12.5 (0.0-15.0) % Eos % (Auto) 1.4 (0.0-7.0) % Baso % (Auto) 0.1 (0.0-1.5) % Neut # 6.4 H (1.4-5.7) K/uL Lymph # 1.7 (0.6-2.4) K/uL [place] # 1.2 H (0.0-0.8) K/uL Eos # 0.1 (0.0-0.7) K/uL Baso # 0.0 (0.0-0.1) K/uL INR (0.86-1.11) Sodium (136-146) mmol/L Potassium (3.5-5.1) mmol/L Chloride (98-110) mmol/L Carbon Dioxide (21-31) mmol/L BUN (6.0-23.0) mg/dL Creatinine (0.6-1.5) mg/dL Est Cr Clr Drug Dosing mL/min Estimated GFR (MDRD) ml/min Glucose (60-110) mg/dL POC Glucose 107 127 H (60-110) mg/dL Calcium (8.8-10.8) mg/dL Magnesium (1.5-2.3) mEq/L 12/30/16 12/30/16 12/30/16 Range/Units 05:45 05:45 06:29 WBC (4.0-11.0) K/uL RBC (4.50-5.90) M/uL Hgb (13.0-17.0) g/dL Hct (38.0-50.0) % MCV (80.0-98.0) fL MCH (27.0-32.0) pg MCHC (31.0-37.0) g/dL RDW Std Deviation (28.0-62.0) fl RDW Coeff of Davy (11.0-15.0) % Plt Count (150-400) K/uL MPV (7.40-12.00) fL Neut % (Auto) (48.0-80.0) % Lymph % (Auto) (16.0-40.0) % [place] % (Auto) (0.0-15.0) % Eos % (Auto) (0.0-7.0) % Baso % (Auto) (0.0-1.5) % Neut # (1.4-5.7) K/uL Lymph # (0.6-2.4) K/uL [place] # (0.0-0.8) K/uL Eos # (0.0-0.7) K/uL Baso # (0.0-0.1) K/uL INR 2.31 H (0.86-1.11) Sodium 143 (136-146) mmol/L Potassium 4.4 (3.5-5.1) mmol/L Chloride 115 H (98-110) mmol/L Carbon Dioxide 18 L (21-31) mmol/L BUN 47 H (6.0-23.0) mg/dL Creatinine 2.4 H (0.6-1.5) mg/dL Est Cr Clr Drug Dosing 19.57 mL/min Estimated GFR (MDRD) 25.7 ml/min Glucose 108 (60-110) mg/dL POC Glucose 109 (60-110) mg/dL Calcium 9.3 (8.8-10.8) mg/dL Magnesium 1.8 (1.5-2.3) mEq/L Med Orders - Current: Current Medications Acetaminophen (Tylenol) 650 mg PO Q4H PRN PRN Reason: Pain (Mild 1-3)/fever Albuterol/Ipratropium (Duoneb 3.0-0.5 Mg/3 Ml) 3 ml NEB Q4HRRT [facility] Last Admin: 12/30/16 09:39 Dose: Not Given Aspirin (Halfprin) 81 mg PO BEDTIME [facility] Last Admin: 12/29/16 21:23 Dose: 81 mg Calcitriol (Rocaltrol) 0.25 mcg PO DAILY [facility] Last Admin: 12/30/16 09:10 Dose: 0.25 mcg Diltiazem HCl (Cardizem Cd) 360 mg PO DAILY [facility] Last Admin: 12/30/16 09:13 Dose: 360 mg Dutasteride (Avodart) 0.5 mg PO DAILY [facility] Last Admin: 12/30/16 09:11 Dose: 0.5 mg Folic Acid (Folic Acid) 1 mg PO DAILY [facility] Last Admin: 12/30/16 09:23 Dose: 1 mg Gemfibrozil (Lopid) 600 mg PO BID [facility] Last Admin: 12/30/16 09:23 Dose: 600 mg Insulin Aspart (Novolog) 0 unit SUBCUT ACBED [facility] PRN Reason: Protocol Last Admin: 12/30/16 08:58 Dose: Not Given Metoprolol Succinate (Toprol Xl) 50 mg PO BID [facility] Last Admin: 12/30/16 09:24 Dose: 50 mg Multivitamins/Minerals (Prosight) 1 tab PO BID [facility] Last Admin: 12/30/16 09:11 Dose: 1 tab Ondansetron HCl (Zofran Odt) 4 mg PO Q4H PRN PRN Reason: nausea, able to take PO Ondansetron HCl (Zofran) 4 mg IVPUSH Q4H PRN PRN Reason: Nausea Oseltamivir Phosphate (Tamiflu) 30 mg PO DAILY [facility] Linagliptin 5 Mg (Tablet) 1 each PO DAILY [facility] Last Admin: 12/30/16 09:29 Dose: 1 each Toujeo (Insulin (Glargine) Ptom ) 0 each SUBCUT BEDTIME [facility] Last Admin: 12/29/16 22:23 Dose: 1 each Sodium Chloride (Saline Flush) 10 ml FLUSH ASDIRECTED PRN PRN Reason: Keep Vein Open Sodium Chloride (Saline Flush) 2.5 ml FLUSH ASDIRECTED PRN PRN Reason: Keep Vein Open Tamsulosin HCl (Flomax) 0.8 mg PO BEDTIME [facility] Last Admin: 12/29/16 21:23 Dose: 0.8 mg Discontinued Medications Albuterol/Ipratropium (Duoneb 3.0-0.5 Mg/3 Ml) 3 ml NEB ONETIME ONE Stop: 12/28/16 18:14 Last Admin: 12/28/16 18:24 Dose: 3 ml Diltiazem HCl (Cardizem Cd) 240 mg PO DAILY [facility] Last Admin: 12/29/16 08:03 Dose: 240 mg Diltiazem HCl (Cardizem Cd) 120 mg PO ONETIME ONE Stop: 12/29/16 12:46 Last Admin: 12/29/16 14:18 Dose: 120 mg Sodium Chloride (Normal Saline) 1,000 mls @ 125 mls/hr IV STAT [facility] Last Admin: 12/28/16 23:29 Dose: 125 mls/hr Sodium Chloride (Normal Saline) 1,000 mls @ 125 mls/hr IV ASDIRECTED [facility] Last Admin: 12/29/16 08:13 Dose: 125 mls/hr Levofloxacin/Dextrose 750 mg/ (Premix) 150 mls @ 100 mls/hr IV Q48H [facility] Stop: 12/28/16 23:28 Last Admin: 12/28/16 23:30 Dose: 100 mls/hr Insulin Glargine (Lantus Solostar) 14 units SUBCUT BEDTIME [facility] Last Admin: 12/29/16 22:20 Dose: Not Given Levofloxacin (Levaquin) 500 mg PO DAILY ONE Stop: 12/29/16 13:44 Last Admin: 12/29/16 14:18 Dose: 500 mg Metoprolol Succinate (Toprol Xl) 50 mg PO ONETIME ONE Stop: 12/28/16 21:57 Last Admin: 12/29/16 01:57 Dose: Not Given Metoprolol Succinate (Toprol Xl) 50 mg PO ONETIME ONE Stop: 12/29/16 00:34 Last Admin: 12/29/16 00:40 Dose: 50 mg Metoprolol Tartrate (Lopressor) 5 mg IVPUSH ONETIME ONE Stop: 12/28/16 18:19 Last Admin: 12/28/16 18:53 Dose: 5 mg - Exam General: alert, oriented, cooperative Lungs: Normal respiratory effort, Rhonchi (faint diffuse rhonchi) Cardiovascular: regular rate, regular rhythm Neurological: normal speech Psy/Mental Status: normal mood Physical Findings Comments:: maculopalular rash diffusely over back with some blanching. - Problem List & Annotations (1) Atrial fibrillation with RVR SNOMED Code(s): 874378773786445 Code(s): I48.91 - UNSPECIFIED ATRIAL FIBRILLATION Status: Acute Current Visit: Yes (2) Influenza SNOMED Code(s): 4171812 Code(s): J11.1 - FLU DUE TO UNIDENTIFIED INFLUENZA VIRUS W OTH RESP MANIFEST Status: Acute Current Visit: No (3) Acute on chronic renal failure SNOMED Code(s): 378458292 Code(s): N17.9 - ACUTE KIDNEY FAILURE, UNSPECIFIED; N18.9 - CHRONIC KIDNEY DISEASE, UNSPECIFIED Status: Acute Current Visit: Yes (4) Dermatitis SNOMED Code(s): 87385911 Code(s): L30.9 - DERMATITIS, UNSPECIFIED Status: Acute Current Visit: Yes - Problem List Review Problem List Initiated/Reviewed/Updated: Yes - My Orders Last 24 Hours: My Active Orders 12/29/16 21:00 Aspirin [Halfprin] 81 mg PO BEDTIME Tamsulosin [Flomax] 0.8 mg PO BEDTIME 12/30/16 09:00 Diltiazem [Cardizem CD] 360 mg PO DAILY 12/30/16 12:15 Oseltamivir [Tamiflu] 30 mg PO DAILY 12/30/16 21:00 Patient's Own Medication [Ptom] 0 each SUBCUT BEDTIME 12/31/16 05:11 BASIC METABOLIC PANEL,BMP [CHEM] AM CBC WITH AUTO DIFF [HEME] AM INR,PT,PROTHROMBIN TIME [COAG] AM MAGNESIUM [CHEM] AM 01/01/17 05:11 INR,PT,PROTHROMBIN TIME [COAG] AM - Plan Plan:: 12/28/2016 malaise influenza acute on chronic renal faillure possible post influenza pneumonia atrial fibrillation with RVR admit to observation see orders Amado Radford MD 12/29/2016 improving increase diltiazem improved serum creatinine possible discharge on Saturday Gael radford MD 12/30/2016 improved add tamiflu add steroid cream continue renal dosing levaquin possible discharge Saturday Amado Radford MD
--- NOTE | 2016-12-30 12:17 | PCM.SN ---
- Free Text/Narrative Note: pulse irregularly irregular. will discontinue telemetry
[2016-12-30] MEDS: Oseltamivir 6 MG/ML Susp 60 ML Bot PO SCH (15:12)
[2016-12-30] MEDS ORDERED: Triamcinolone Acetonide 0.1% Crm 80 GM Tube TOP SCH (18:00)
[2016-12-30] MEDS: Triamcinolone Acetonide 0.1% Crm 15 GM Tube TOP SCH (20:45)
[2016-12-30] MEDS: Tamsulosin 0.4 MG Cap.ER PO SCH (20:46)
[2016-12-30] MEDS: Aspirin 81 MG Tab.EC PO SCH (20:47)
[2016-12-30] MEDS: TOUJEO SUBCUT SCH (21:21)
[2016-12-30] MEDS ORDERED: LORazepam 2 MG/ML MDV IVPUSH PRN (22:25)
[2016-12-30] MEDS ORDERED: LORazepam 1 MG Tab PO PRN (22:26)
[2016-12-31] MEDS: Triamcinolone Acetonide 0.1% Crm 15 GM Tube TOP SCH ×4 (00:20→18:31)
[2016-12-31] MEDS: Albuterol/Ipratropium 3.0-0.5 MG/3 ML Neb Soln NEB SCH ×3 (02:46→09:28)
[2016-12-31] MEDS: Insulin Aspart 100 Units/ML 3 ML Pen SUBCUT SCH ×3 (07:17→17:35)
[2016-12-31] MEDS ORDERED: Albuterol/Ipratropium 3.0-0.5 MG/3 ML Neb Soln NEB PRN (09:51)
--- NOTE | 2016-12-31 09:52 | PCM.SN ---
- Free Text/Narrative Note: confusion noted. He has a prior history of confusion with tamiflu. Tamiflu discontinued.
[2016-12-31] MEDS: Oseltamivir 6 MG/ML Susp 60 ML Bot PO SCH (09:54)
--- NOTE | 2016-12-31 10:07 | PCM.PN ---
- General Info Date of Service: 12/31/16 Admission Dx/Problem (Free Text): Admission Diagnosis/Problem Admission Diagnosis/Problem Influenza Subjective Update: Confused this morning, refusing to eat or take medications. Has complaints of body aches. Wanting to go home. not at bedside. Functional Status: Reports: pain controlled, tolerating diet, ambulating, urinating - Review of Systems General: Reports: malaise. Denies: fever HEENT: Reports: no symptoms. Denies: sinus congestion, sore throat Pulmonary: Reports: no symptoms. Denies: shortness of breath, cough, sputum Cardiovascular: Reports: no symptoms. Denies: chest pain, palpitations, edema Gastrointestinal: Reports: No symptoms. Denies: Abdominal pain, Nausea, Vomiting Genitourinary: Reports: no symptoms Musculoskeletal: Reports: no symptoms Neurological: Reports: confusion Psychiatric: Reports: confusion - Patient Data Vitals - most recent: Last Vital Signs Temp 98.5 F 12/31/16 08:00 Pulse 121 H 12/31/16 04:00 Resp 18 12/31/16 08:00 BP 127/81 12/31/16 04:00 Pulse Ox 95 12/31/16 06:00 Weight - most recent: 76.2 kg I&O - last 24 hours: Intake & Output 12/30/16 12/31/16 12/31/16 22:59 06:59 14:59 Intake Total 250 Output Total 100 Balance 150 Lab Results last 24 hrs: Laboratory Results - last 24 hr 12/30/16 12/30/16 12/30/16 Range/Units 12:03 18:28 21:17 WBC (4.0-11.0) K/uL RBC (4.50-5.90) M/uL Hgb (13.0-17.0) g/dL Hct (38.0-50.0) % MCV (80.0-98.0) fL MCH (27.0-32.0) pg MCHC (31.0-37.0) g/dL RDW Std Deviation (28.0-62.0) fl RDW Coeff of Davy (11.0-15.0) % Plt Count (150-400) K/uL MPV (7.40-12.00) fL Neut % (Auto) (48.0-80.0) % Lymph % (Auto) (16.0-40.0) % [place] % (Auto) (0.0-15.0) % Eos % (Auto) (0.0-7.0) % Baso % (Auto) (0.0-1.5) % Neut # (1.4-5.7) K/uL Lymph # (0.6-2.4) K/uL [place] # (0.0-0.8) K/uL Eos # (0.0-0.7) K/uL Baso # (0.0-0.1) K/uL INR (0.86-1.11) Sodium (136-146) mmol/L Potassium (3.5-5.1) mmol/L Chloride (98-110) mmol/L Carbon Dioxide (21-31) mmol/L BUN (6.0-23.0) mg/dL Creatinine (0.6-1.5) mg/dL Est Cr Clr Drug Dosing mL/min Estimated GFR (MDRD) ml/min Glucose (60-110) mg/dL POC Glucose 122 H 126 H 98 (60-110) mg/dL Calcium (8.8-10.8) mg/dL Magnesium (1.5-2.3) mEq/L 12/31/16 12/31/16 12/31/16 Range/Units 05:35 05:35 05:35 WBC 9.60 (4.0-11.0) K/uL RBC 3.39 L (4.50-5.90) M/uL Hgb 10.1 L (13.0-17.0) g/dL Hct 31.8 L (38.0-50.0) % MCV 93.8 (80.0-98.0) fL MCH 29.8 (27.0-32.0) pg MCHC 31.8 (31.0-37.0) g/dL RDW Std Deviation 47.2 (28.0-62.0) fl RDW Coeff of Davy 14 (11.0-15.0) % Plt Count 276 (150-400) K/uL MPV 11.20 (7.40-12.00) fL Neut % (Auto) 66.7 (48.0-80.0) % Lymph % (Auto) 19.2 (16.0-40.0) % [place] % (Auto) 12.5 (0.0-15.0) % Eos % (Auto) 1.5 (0.0-7.0) % Baso % (Auto) 0.1 (0.0-1.5) % Neut # 6.4 H (1.4-5.7) K/uL Lymph # 1.8 (0.6-2.4) K/uL [place] # 1.2 H (0.0-0.8) K/uL Eos # 0.1 (0.0-0.7) K/uL Baso # 0.0 (0.0-0.1) K/uL INR 1.95 H (0.86-1.11) Sodium 146 (136-146) mmol/L Potassium 4.2 (3.5-5.1) mmol/L Chloride 119 H (98-110) mmol/L Carbon Dioxide 15 L (21-31) mmol/L BUN 45 H (6.0-23.0) mg/dL Creatinine 2.4 H (0.6-1.5) mg/dL Est Cr Clr Drug Dosing 19.57 mL/min Estimated GFR (MDRD) 25.7 ml/min Glucose 80 (60-110) mg/dL POC Glucose (60-110) mg/dL Calcium 9.0 (8.8-10.8) mg/dL Magnesium 2.0 (1.5-2.3) mEq/L Med Orders - Current: Current Medications Acetaminophen (Tylenol) 650 mg PO Q4H PRN PRN Reason: Pain (Mild 1-3)/fever Albuterol/Ipratropium (Duoneb 3.0-0.5 Mg/3 Ml) 3 ml NEB Q4HRRT PRN PRN Reason: Other Aspirin (Halfprin) 81 mg PO BEDTIME [facility] Last Admin: 12/30/16 20:47 Dose: 81 mg Calcitriol (Rocaltrol) 0.25 mcg PO DAILY [facility] Last Admin: 12/30/16 09:10 Dose: 0.25 mcg Diltiazem HCl (Cardizem Cd) 360 mg PO DAILY [facility] Last Admin: 12/30/16 09:13 Dose: 360 mg Dutasteride (Avodart) 0.5 mg PO DAILY [facility] Last Admin: 12/30/16 09:11 Dose: 0.5 mg Folic Acid (Folic Acid) 1 mg PO DAILY [facility] Last Admin: 12/30/16 09:23 Dose: 1 mg Gemfibrozil (Lopid) 600 mg PO BID [facility] Last Admin: 12/30/16 20:58 Dose: 600 mg Levofloxacin/Dextrose 750 mg/ (Premix) 150 mls @ 100 mls/hr IV Q48H [facility] Insulin Aspart (Novolog) 0 unit SUBCUT ACBED [facility] PRN Reason: Protocol Last Admin: 12/31/16 07:17 Dose: Not Given Lorazepam (Ativan) 1 mg IVPUSH Q6H PRN PRN Reason: Agitation Last Admin: 12/30/16 22:37 Dose: 1 mg Lorazepam (Ativan) 1 mg PO Q6H PRN PRN Reason: Agitation Metoprolol Succinate (Toprol Xl) 50 mg PO BID [facility] Last Admin: 12/30/16 21:14 Dose: 50 mg Multivitamins/Minerals (Prosight) 1 tab PO BID [facility] Last Admin: 12/30/16 20:46 Dose: 1 tab Ondansetron HCl (Zofran Odt) 4 mg PO Q4H PRN PRN Reason: nausea, able to take PO Ondansetron HCl (Zofran) 4 mg IVPUSH Q4H PRN PRN Reason: Nausea Linagliptin 5 Mg (Tablet) 1 each PO DAILY [facility] Last Admin: 12/30/16 09:29 Dose: 1 each Toujeo (Insulin (Glargine) Ptom ) 0 each SUBCUT BEDTIME [facility] Last Admin: 12/30/16 21:21 Dose: 14 each Sodium Chloride (Saline Flush) 10 ml FLUSH ASDIRECTED PRN PRN Reason: Keep Vein Open Sodium Chloride (Saline Flush) 2.5 ml FLUSH ASDIRECTED PRN PRN Reason: Keep Vein Open Tamsulosin HCl (Flomax) 0.8 mg PO BEDTIME [facility] Last Admin: 12/30/16 20:46 Dose: 0.8 mg Triamcinolone Acetonide (Triamcinolone Acetonide 0.1% Crm) 0 gm TOP QID [facility] Last Admin: 12/31/16 06:30 Dose: Not Given Warfarin Sodium (Coumadin Ask) 1 each PO DAILY@1400 [facility] Discontinued Medications Albuterol/Ipratropium (Duoneb 3.0-0.5 Mg/3 Ml) 3 ml NEB ONETIME ONE Stop: 12/28/16 18:14 Last Admin: 12/28/16 18:24 Dose: 3 ml Albuterol/Ipratropium (Duoneb 3.0-0.5 Mg/3 Ml) 3 ml NEB Q4HRRT [facility] Last Admin: 12/31/16 09:28 Dose: Not Given Diltiazem HCl (Cardizem Cd) 240 mg PO DAILY [facility] Last Admin: 12/29/16 08:03 Dose: 240 mg Diltiazem HCl (Cardizem Cd) 120 mg PO ONETIME ONE Stop: 12/29/16 12:46 Last Admin: 12/29/16 14:18 Dose: 120 mg Sodium Chloride (Normal Saline) 1,000 mls @ 125 mls/hr IV STAT [facility] Last Admin: 12/28/16 23:29 Dose: 125 mls/hr Sodium Chloride (Normal Saline) 1,000 mls @ 125 mls/hr IV ASDIRECTED [facility] Last Admin: 12/29/16 08:13 Dose: 125 mls/hr Levofloxacin/Dextrose 750 mg/ (Premix) 150 mls @ 100 mls/hr IV Q48H [facility] Stop: 12/28/16 23:28 Last Admin: 12/28/16 23:30 Dose: 100 mls/hr Insulin Glargine (Lantus Solostar) 14 units SUBCUT BEDTIME [facility] Last Admin: 12/29/16 22:20 Dose: Not Given Levofloxacin (Levaquin) 500 mg PO DAILY ONE Stop: 12/29/16 13:44 Last Admin: 12/29/16 14:18 Dose: 500 mg Metoprolol Succinate (Toprol Xl) 50 mg PO ONETIME ONE Stop: 12/28/16 21:57 Last Admin: 12/29/16 01:57 Dose: Not Given Metoprolol Succinate (Toprol Xl) 50 mg PO ONETIME ONE Stop: 12/29/16 00:34 Last Admin: 12/29/16 00:40 Dose: 50 mg Metoprolol Tartrate (Lopressor) 5 mg IVPUSH ONETIME ONE Stop: 12/28/16 18:19 Last Admin: 12/28/16 18:53 Dose: 5 mg Oseltamivir Phosphate (Tamiflu) 30 mg PO DAILY [facility] Last Admin: 12/31/16 09:54 Dose: Not Given Triamcinolone Acetonide (Kenalog 0.1% Crm) 20 gm TOP QID [facility] Last Admin: 12/30/16 20:45 Dose: Not Given - Exam General: alert, oriented, other (confused) HEENT: Pupils equal, Pupils reactive, EOMI, Mucous membr. moist/pink Neck: supple Lungs: Clear to auscultation, Normal respiratory effort Cardiovascular: regular rate, regular rhythm, no murmurs Abdomen: bowel sounds present, soft, no tenderness, no distension Extremities: no edema, normal pulses Skin: warm, dry, intact Psy/Mental Status: alert, normal affect, normal mood - Problem List & Annotations (1) Acute on chronic renal failure SNOMED Code(s): 521765945 Code(s): N17.9 - ACUTE KIDNEY FAILURE, UNSPECIFIED; N18.9 - CHRONIC KIDNEY DISEASE, UNSPECIFIED Status: Acute Current Visit: Yes (2) Influenza SNOMED Code(s): 0259414 Code(s): J11.1 - FLU DUE TO UNIDENTIFIED INFLUENZA VIRUS W OTH RESP MANIFEST Status: Acute Current Visit: No - Problem List Review Problem List Initiated/Reviewed/Updated: Yes - My Orders Last 24 Hours: My Active Orders 12/31/16 14:00 Warfarin Dosing [Coumadin Ask] 1 each PO DAILY@1400 - Plan Plan:: 12/28/2016 malaise influenza acute on chronic renal faillure possible post influenza pneumonia atrial fibrillation with RVR admit to observation see orders Amado Radford MD 12/29/2016 improving increase diltiazem improved serum creatinine possible discharge on Saturday Gael radford MD 12/30/2016 improved add tamiflu add steroid cream continue renal dosing levaquin possible discharge Saturday Amado Radford MD 12/31/2016 1. Influenza: Will stop Tamiflu due to confusion noted. Improving, still having malaise. 2. Acute on chronic renal failure: Improving BUN 45 Cr 2.4 today. Continue to monitor. 3. Afib: Continue Diltiazem and Metoprolol. Restart Coumadin today, pharmacy to assist with dosing. 4. Pneumonia: Questionable.. Continue Levaquin renal dosing. 5. DM: Continue Novolog SSI and Tuojeo. BS controlled. VTE; Coumadin. Dispo: Likely discharge tomorrow, hoping confusion clears. Claudine SORTOC
[2016-12-31] MEDS: Folic Acid 1 MG Tab PO SCH (13:37)
[2016-12-31] MEDS: Dutasteride 0.5 MG Cap PO SCH (13:37)
[2016-12-31] MEDS: Metoprolol Succinate 50 MG Tab.ER PO SCH ×2 (13:37→20:52)
[2016-12-31] MEDS: Diltiazem 120 MG Cap.CD PO SCH (13:38)
[2016-12-31] MEDS: Gemfibrozil 600 MG Tab PO SCH ×2 (13:38→20:48)
[2016-12-31] MEDS: Beta-Carotene (Vitamin A) w/Vitamin C & E plus Minerals Tab PO SCH ×2 (13:38→20:48)
[2016-12-31] MEDS: Calcitriol 0.25 MCG Cap PO SCH (13:39)
[2016-12-31] MEDS ORDERED: Warfarin 2.5 MG Tab PO SCH (14:00)
[2016-12-31] MEDS ORDERED: Levofloxacin/Dextrose 5%-Water 750 MG in Premix Bag 1 BAG IV SCH (14:00)
--- NOTE | 2016-12-31 15:09 | CR ---
EXAM DATE: 12/28/16 PATIENT'S AGE: 86 Patient: GREGORIO CAPELLAN Facility: [place], [place] Site . Site : 1930 Study: XRay Chest [id number]/24/2017 7:11:30 PM Ordering Physician: Hayder Proctor Final Report: HISTORY: Shortness of breath, cough and weakness. FINDINGS: PA and lateral chest radiographs are compared to 23 DECEMBER 2016. Left subclavian transvenous pacer is in place. The cardiac silhouette is at the upper limits of normal. Pulmonary vasculature is free of cephalization. There is some patchy density seen in the right mid to lower lung. Linear density is seen in the left base. The costophrenic angles are sharp. Vertebral body heights maintained within the thoracic spine. IMPRESSION: 1. Linear atelectasis or scar in the left base. 2. Atelectasis versus minimal infiltrate in the right lower lobe. Dictated by Millie Thayer MD @ 12/28/2016 7:29:41 PM Dictated by: Millie Thayer MD @ 12/28/2016 19:29:49 (Electronic Signature) Report Signed by Proxy and Original Signed Document filed in the Medical Record. [facility]
[2016-12-31] MEDS: Tamsulosin 0.4 MG Cap.ER PO SCH (20:48)
[2016-12-31] MEDS: Aspirin 81 MG Tab.EC PO SCH (20:49)
[2016-12-31] MEDS: TOUJEO SUBCUT SCH (20:53)
[2017-01-01] MEDS: Insulin Aspart 100 Units/ML 3 ML Pen SUBCUT SCH ×2 (00:32→06:46)
[2017-01-01] MEDS: Triamcinolone Acetonide 0.1% Crm 15 GM Tube TOP SCH ×2 (01:12→05:55)
[2017-01-01] MEDS: Dutasteride 0.5 MG Cap PO SCH (08:17)
[2017-01-01] MEDS: Calcitriol 0.25 MCG Cap PO SCH (08:17)
[2017-01-01] MEDS: Diltiazem 120 MG Cap.CD PO SCH (08:17)
[2017-01-01] MEDS: Metoprolol Succinate 50 MG Tab.ER PO SCH (08:17)
[2017-01-01] MEDS: Beta-Carotene (Vitamin A) w/Vitamin C & E plus Minerals Tab PO SCH (08:17)
[2017-01-01] MEDS: Folic Acid 1 MG Tab PO SCH (08:17)
[2017-01-01] MEDS: Gemfibrozil 600 MG Tab PO SCH (08:18)
[2017-01-01 08:19] VITALS: BP 131/76
--- NOTE | 2017-01-01 09:24 | PCM.DCSUM1 ---
Discharge Summary - Hospital Course Brief History: This 86 year old male with pmh of CKD, DM, and afib on chronic anticoagulation presented to the ED 01/01/2017 with severe malaise. He was recently discharged from the hospital on this last December 26. He had been admitted for influenza and atrial fibrillation with RVR. It was thought that he might have an influenza pneumonia. He was given Levofloxacin. It was recommended that he stay longer in the hospital but he insisted on early discharge. . In the ED increased serum Cr above his baseline of about 2.7. CXR revealed linear atelectasis or scarring in the left base, and atelectasis versus minimal infiltrate in the right lower lobe. He was admitted for weakness and pneumonia. He takes lasix at home. IN the ER it was noted that he was in atrial fibrillation with RVR. HE denies chest pain or palpitations. - Discharge Data Discharge Date: 01/01/17 Discharge Disposition: Home, W Home Health Agency 06 Condition: Good - Discharge Diagnosis/Problem(s) (1) Acute on chronic renal failure SNOMED Code(s): 175439373 ICD Code: N17.9 - ACUTE KIDNEY FAILURE, UNSPECIFIED; N18.9 - CHRONIC KIDNEY DISEASE, UNSPECIFIED Status: Acute (2) Influenza SNOMED Code(s): 7484472 ICD Code: J11.1 - FLU DUE TO UNIDENTIFIED INFLUENZA VIRUS W OTH RESP MANIFEST Status: Acute - Patient Instructions Diet: Diabetic Diet Activity: As Tolerated Showering/Bathing: May Shower Notify Provider of: Fever, Increased Pain, Swelling and Redness, Drainage, Nausea and/or Vomiting - Discharge Plan Prescriptions/Med Rec: Diltiazem [Cardizem CD] 360 mg PO DAILY #90 cap.cd Levofloxacin [Levaquin] 750 mg PO Q48H #2 tablet Metoprolol Succinate [Toprol XL] 50 mg PO BID #60 tab.er Home Medications: Home Meds Aspirin [Halfprin] 81 mg PO BEDTIME 12/23/16 [History] Calcitriol [Rocaltrol] 0.25 mcg PO DAILY 12/23/16 [History] Cholecalciferol (Vitamin D3) [Vitamin D3] 1,000 unit PO QAM 12/23/16 [History] Dutasteride 0.5 mg PO DAILY 12/23/16 [History] Folic Acid 1 mg PO DAILY 12/23/16 [History] Furosemide [Lasix] 20 mg PO QAM 12/23/16 [History] Gemfibrozil 600 mg PO BID 12/23/16 [History] Insulin Glargine,Hum.Rec.Anlog [Vince [place]] 14 unit SQ BEDTIME 12/23/16 [ History] Linagliptin [Tradjenta] 5 mg PO DAILY 12/23/16 [History] Lisinopril 1.25 mg PO DAILY 12/23/16 [History] Sodium Bicarbonate 1,300 mg PO BID 12/23/16 [History] Tamsulosin [Flomax] 0.8 mg PO BEDTIME 12/23/16 [History] Warfarin [Coumadin] 7.5 mg PO SUMOTUTHFR@1800 12/23/16 [History] Warfarin [Coumadin] 10 mg PO WESA@1800 12/23/16 [History] amLODIPine [Norvasc] 5 mg PO DAILY 12/23/16 [History] Beta-Carotene(A) w/C & E/Min [Prosight] 1 tab PO BID tablet 12/26/16 [Rx] Patient's Own Medication [Ptom] 0 each SUBCUT BEDTIME each 12/26/16 [Rx] Warfarin [Coumadin] 7.5 mg PO SUMOTUTHFR@1800 12/31/16 [History] Diltiazem [Cardizem CD] 360 mg PO DAILY #90 cap.cd 01/01/17 [Rx] Levofloxacin [Levaquin] 750 mg PO Q48H #2 tablet 01/01/17 [Rx] Metoprolol Succinate [Toprol XL] 50 mg PO BID #60 tab.er 01/01/17 [Rx] Triamcinolone Acetonide [IJD: Triamcinolone Acetonide 0.1% Crm] 0 gm TOP QID tube 01/01/17 [Rx] Patient Handouts: Diltiazem extended-release capsules or tablets, Metoprolol extended-release tablets, Dehydration, Adult, [id number], Chronic Kidney Disease, Rxqy-[id number], Levofloxacin tablets, Atrial Fibrillation, [id number] Referrals: Dread Burr MD [Primary Care Provider] - 01/09/17 1:00 pm (Has follow up appointment next week, verify date. INR check prior to appointment.) - Discharge Summary/Plan Comment DC Time >30 min.: No Discharge Summary/Plan Comment: Discharge diagnoses \ Influenza Acute on chronic influenza Pneumonia Michelle Leos was admitted and treated with Levaquin and Tamiflu. Tamiflu was discontinued due to confusion. He was hydrated and renal function returned to normal, states 2.7 is baseline Cr. Today Cr 2.8. He is eager for discharge. Will discharge home today with Levaquin 750 Q48 hrs x 5 days. INR today is 2.0, he will continue taking home dosing and recheck INR with clinic follow up next week with Dr. Burr. at bedside and agrees with discharge. Metoprolol and Diltiazem were increased to help with afib. Metoprolol XL 50 mg will be BID and Diltiazem increased to 360 mg daily. He is to return to ED or clinic if concerns should arise. - General Info Date of Service: 01/01/17 Admission Dx/Problem (Free Text: Admission Diagnosis/Problem Admission Diagnosis/Problem Influenza Subjective Update: Alert this morning and asking to be discharged. Denies any SOB or chest pain. No palpitations. Functional Status: Reports: pain controlled, tolerating diet, ambulating, urinating - Review of Systems General: Reports: no symptoms. Denies: fever, weakness HEENT: Reports: no symptoms. Denies: sinus congestion, sore throat Pulmonary: Reports: no symptoms. Denies: shortness of breath, cough Cardiovascular: Reports: no symptoms. Denies: chest pain, palpitations Gastrointestinal: Reports: No symptoms. Denies: Abdominal pain Neurological: Reports: no symptoms. Denies: confusion - Patient Data Vitals - Most Recent: Last Vital Signs Temp 98.2 F 01/01/17 08:03 Pulse 101 H 01/01/17 08:17 Resp 18 01/01/17 08:03 BP 131/76 01/01/17 08:17 Pulse Ox 92 L 01/01/17 08:03 Weight - Most Recent: 76.2 kg I&O - Last 24 hours: Intake & Output 12/31/16 01/01/17 01/01/17 22:59 06:59 14:59 Intake Total 827 260 Output Total 150 200 Balance 677 60 Lab Results - Last 24 hrs: Laboratory Results - last 24 hr 12/31/16 12/31/16 12/31/16 Range/Units 06:42 08:15 16:44 WBC (4.0-11.0) K/uL RBC (4.50-5.90) M/uL Hgb (13.0-17.0) g/dL Hct (38.0-50.0) % MCV (80.0-98.0) fL MCH (27.0-32.0) pg MCHC (31.0-37.0) g/dL RDW Std Deviation (28.0-62.0) fl RDW Coeff of Davy (11.0-15.0) % Plt Count (150-400) K/uL MPV (7.40-12.00) fL Neut % (Auto) (48.0-80.0) % Lymph % (Auto) (16.0-40.0) % [place] % (Auto) (0.0-15.0) % Eos % (Auto) (0.0-7.0) % Baso % (Auto) (0.0-1.5) % Neut # (1.4-5.7) K/uL Lymph # (0.6-2.4) K/uL [place] # (0.0-0.8) K/uL Eos # (0.0-0.7) K/uL Baso # (0.0-0.1) K/uL Nucleated RBC % /100WBC Nucleated RBCs # K/uL INR (0.86-1.11) Sodium (136-146) mmol/L Potassium (3.5-5.1) mmol/L Chloride (98-110) mmol/L Carbon Dioxide (21-31) mmol/L BUN (6.0-23.0) mg/dL Creatinine (0.6-1.5) mg/dL Est Cr Clr Drug Dosing mL/min Estimated GFR (MDRD) ml/min Glucose (60-110) mg/dL POC Glucose 69 78 256 H (60-110) mg/dL Calcium (8.8-10.8) mg/dL 01/01/17 01/01/17 01/01/17 Range/Units 04:30 04:30 04:30 WBC 11.09 H (4.0-11.0) K/uL RBC 3.40 L (4.50-5.90) M/uL Hgb 10.0 L (13.0-17.0) g/dL Hct 31.0 L (38.0-50.0) % MCV 91.2 (80.0-98.0) fL MCH 29.4 (27.0-32.0) pg MCHC 32.3 (31.0-37.0) g/dL RDW Std Deviation 48.5 (28.0-62.0) fl RDW Coeff of Davy 15 (11.0-15.0) % Plt Count 287 (150-400) K/uL MPV 10.70 (7.40-12.00) fL Neut % (Auto) 71.7 (48.0-80.0) % Lymph % (Auto) 13.9 L (16.0-40.0) % [place] % (Auto) 13.0 (0.0-15.0) % Eos % (Auto) 1.2 (0.0-7.0) % Baso % (Auto) 0.2 (0.0-1.5) % Neut # 8.0 H (1.4-5.7) K/uL Lymph # 1.5 (0.6-2.4) K/uL [place] # 1.4 H (0.0-0.8) K/uL Eos # 0.1 (0.0-0.7) K/uL Baso # 0.0 (0.0-0.1) K/uL Nucleated RBC % 0.0 /100WBC Nucleated RBCs # 0 K/uL INR 2.00 H (0.86-1.11) Sodium 144 (136-146) mmol/L Potassium 4.7 (3.5-5.1) mmol/L Chloride 118 H (98-110) mmol/L Carbon Dioxide 14 L (21-31) mmol/L BUN 55 H (6.0-23.0) mg/dL Creatinine 2.8 H (0.6-1.5) mg/dL Est Cr Clr Drug Dosing 16.77 mL/min Estimated GFR (MDRD) 21.5 ml/min Glucose 105 (60-110) mg/dL POC Glucose (60-110) mg/dL Calcium 9.3 (8.8-10.8) mg/dL Med Orders - Current: Current Medications Acetaminophen (Tylenol) 650 mg PO Q4H PRN PRN Reason: Pain (Mild 1-3)/fever Albuterol/Ipratropium (Duoneb 3.0-0.5 Mg/3 Ml) 3 ml NEB Q4HRRT PRN PRN Reason: Other Aspirin (Halfprin) 81 mg PO BEDTIME [facility] Last Admin: 12/31/16 20:49 Dose: 81 mg Calcitriol (Rocaltrol) 0.25 mcg PO DAILY [facility] Last Admin: 01/01/17 08:17 Dose: 0.25 mcg Diltiazem HCl (Cardizem Cd) 360 mg PO DAILY [facility] Last Admin: 01/01/17 08:17 Dose: 360 mg Dutasteride (Avodart) 0.5 mg PO DAILY [facility] Last Admin: 01/01/17 08:17 Dose: 0.5 mg Folic Acid (Folic Acid) 1 mg PO DAILY [facility] Last Admin: 01/01/17 08:17 Dose: 1 mg Gemfibrozil (Lopid) 600 mg PO BID [facility] Last Admin: 01/01/17 08:18 Dose: 600 mg Levofloxacin/Dextrose 750 mg/ (Premix) 150 mls @ 100 mls/hr IV Q48H [facility] Last Admin: 12/31/16 14:00 Dose: 100 mls/hr Insulin Aspart (Novolog) 0 unit SUBCUT ACBED [facility] PRN Reason: Protocol Last Admin: 01/01/17 06:46 Dose: Not Given Lorazepam (Ativan) 1 mg IVPUSH Q6H PRN PRN Reason: Agitation Last Admin: 12/30/16 22:37 Dose: 1 mg Lorazepam (Ativan) 1 mg PO Q6H PRN PRN Reason: Agitation Metoprolol Succinate (Toprol Xl) 50 mg PO BID [facility] Last Admin: 01/01/17 08:17 Dose: 50 mg Multivitamins/Minerals (Prosight) 1 tab PO BID [facility] Last Admin: 01/01/17 08:17 Dose: 1 tab Ondansetron HCl (Zofran Odt) 4 mg PO Q4H PRN PRN Reason: nausea, able to take PO Ondansetron HCl (Zofran) 4 mg IVPUSH Q4H PRN PRN Reason: Nausea Linagliptin 5 Mg (Tablet) 1 each PO DAILY [facility] Last Admin: 01/01/17 08:21 Dose: 1 each Toujeo (Insulin (Glargine) Ptom ) 0 each SUBCUT BEDTIME [facility] Last Admin: 12/31/16 20:53 Dose: 14 each Sodium Chloride (Saline Flush) 10 ml FLUSH ASDIRECTED PRN PRN Reason: Keep Vein Open Sodium Chloride (Saline Flush) 2.5 ml FLUSH ASDIRECTED PRN PRN Reason: Keep Vein Open Tamsulosin HCl (Flomax) 0.8 mg PO BEDTIME [facility] Last Admin: 12/31/16 20:48 Dose: 0.8 mg Triamcinolone Acetonide (Triamcinolone Acetonide 0.1% Crm) 0 gm TOP QID [facility] Last Admin: 01/01/17 05:55 Dose: 1 applic Warfarin Sodium (Coumadin Ask) 1 each PO DAILY@1400 [facility] Last Admin: 12/31/16 14:00 Dose: Not Given Warfarin Sodium (Coumadin) 7.5 mg PO DAILY@1400 [facility] Last Admin: 12/31/16 14:00 Dose: 7.5 mg Discontinued Medications Albuterol/Ipratropium (Duoneb 3.0-0.5 Mg/3 Ml) 3 ml NEB ONETIME ONE Stop: 12/28/16 18:14 Last Admin: 12/28/16 18:24 Dose: 3 ml Albuterol/Ipratropium (Duoneb 3.0-0.5 Mg/3 Ml) 3 ml NEB Q4HRRT [facility] Last Admin: 12/31/16 09:28 Dose: Not Given Diltiazem HCl (Cardizem Cd) 240 mg PO DAILY [facility] Last Admin: 12/29/16 08:03 Dose: 240 mg Diltiazem HCl (Cardizem Cd) 120 mg PO ONETIME ONE Stop: 12/29/16 12:46 Last Admin: 12/29/16 14:18 Dose: 120 mg Sodium Chloride (Normal Saline) 1,000 mls @ 125 mls/hr IV STAT [facility] Last Admin: 12/28/16 23:29 Dose: 125 mls/hr Sodium Chloride (Normal Saline) 1,000 mls @ 125 mls/hr IV ASDIRECTED [facility] Last Admin: 12/29/16 08:13 Dose: 125 mls/hr Levofloxacin/Dextrose 750 mg/ (Premix) 150 mls @ 100 mls/hr IV Q48H [facility] Stop: 12/28/16 23:28 Last Admin: 12/28/16 23:30 Dose: 100 mls/hr Insulin Glargine (Lantus Solostar) 14 units SUBCUT BEDTIME [facility] Last Admin: 12/29/16 22:20 Dose: Not Given Levofloxacin (Levaquin) 500 mg PO DAILY ONE Stop: 12/29/16 13:44 Last Admin: 12/29/16 14:18 Dose: 500 mg Metoprolol Succinate (Toprol Xl) 50 mg PO ONETIME ONE Stop: 12/28/16 21:57 Last Admin: 12/29/16 01:57 Dose: Not Given Metoprolol Succinate (Toprol Xl) 50 mg PO ONETIME ONE Stop: 12/29/16 00:34 Last Admin: 12/29/16 00:40 Dose: 50 mg Metoprolol Tartrate (Lopressor) 5 mg IVPUSH ONETIME ONE Stop: 12/28/16 18:19 Last Admin: 12/28/16 18:53 Dose: 5 mg Oseltamivir Phosphate (Tamiflu) 30 mg PO DAILY [facility] Last Admin: 12/31/16 09:54 Dose: Not Given Triamcinolone Acetonide (Kenalog 0.1% Crm) 20 gm TOP QID [facility] Last Admin: 12/30/16 20:45 Dose: Not Given - Exam Quality Assessment: Denies: supplemental oxygen General: Reports: alert, oriented, cooperative Neck: Reports: supple Lungs: Reports: Clear to auscultation, Normal respiratory effort Cardiovascular: Reports: regular rate, irregular rhythm Abdomen: Reports: bowel sounds present, soft, no tenderness, no distension Extremities: Reports: no edema, normal pulses Psy/Mental Status: Reports: alert, normal affect, normal mood *Q Meaningful Use (DIS) - VTE *Q VTE Criteria *Q: - Stroke *Q Stroke Criteria *Q: - AMI *Q AMI Criteria *Q:
== END 2017-01-01 11:20 | disposition home health service (06) | DRG 947 ==
LOC: MW.ED 17:44 → MW.MS 20:41 → UNDOADMIN 21:30 → MW.MS 22:18 → UNDODISIN 01-01 11:20
PROVIDERS: ADMIT Family Medicine; ATTEND Family Medicine
DX: E86.0 Dehydration (principal); R53.1 Weakness; J18.9 Pneumonia, unspecified organism; N28.9 Disorder of kidney and ureter, unspecified; R91.8 Other nonspecific abnormal finding of lung field; I10 Essential (primary) hypertension; L03.90 Cellulitis, unspecified; R21 Rash and other nonspecific skin eruption; J11.1 Influenza due to unidentified influenza virus with other respiratory manifestations; R53.81 Other malaise; I48.91 Unspecified atrial fibrillation; R41.0 Disorientation, unspecified; I12.9 Hypertensive chronic kidney disease with stage 1 through stage 4 chronic kidney disease, or unspecified chronic kidney disease; N18.9 Chronic kidney disease, unspecified; E11.9 Type 2 diabetes mellitus without complications; I25.2 Old myocardial infarction; Z79.01 Long term (current) use of anticoagulants; Z88.8 Allergy status to other drugs, medicaments and biological substances; Z79.82 Long term (current) use of aspirin; Z79.899 Other long term (current) drug therapy; Z95.0 Presence of cardiac pacemaker; Z86.73 Personal history of transient ischemic attack (TIA), and cerebral infarction without residual deficits; Z85.528 Personal history of other malignant neoplasm of kidney; Z85.51 Personal history of malignant neoplasm of bladder; Z87.891 Personal history of nicotine dependence
CPT/HCPCS: 36415; 71020; 71020-26; 80048; 80053; 81001; 82550; 82962; 83605; 83735; 84100; 84484; 85025; 85610; 93005; 94664; 96374; 97802; 99284-25; 99285; A9270-GY; J1815-GY; J1956; J2060; J7040

== ENCOUNTER 2017-08-02 13:22 | Inpatient (IN) | payer MEDICARE, BC ==
[2017-08-02] MEDS: Sodium Chloride 0.9% 1,000 ML IV SCH ×2 (14:30→16:10)
[2017-08-02] MEDS ORDERED: Ondansetron 4 MG/2 ML SDV IVPUSH PRN (14:59)
[2017-08-02] MEDS ORDERED: Levofloxacin/Dextrose 5%-Water 750 MG in Premix Bag 1 BAG IV ONE (15:02)
--- NOTE | 2017-08-02 15:08 | PCM.HP ---
H&P History of Present Illness - General Admit Problem/Dx: Admission Diagnosis/Problem Admission Diagnosis/Problem Weakness - History of Present Illness Initial Comments - Free Text/Narative: 86 yo male with pmh of atrial fibrillation, CAD, DM, HTN and CKD who for the past several weeks has complained of generalized weakness, malaise, shortness of breath and productive cough. He is followed by Dr. Rangel as an outpatient he had been treating him with Rocshreya followed by getachew for UTI. He was seen in clinic again today and referred for admission. - Related Data Allergies/Adverse Reactions: Allergies Allergy/AdvReac Type Severity Reaction Status Date / Time acetaminophen Allergy Headache Verified 12/28/16 17:58 [From Excedrin Back and Body] calcium carbonate Allergy Headache Verified 12/28/16 17:58 [From Excedrin Back and Body] moexipril [From Univasc] Allergy Cough Verified 12/28/16 17:58 terazosin [From Hytrin] Allergy Rash Verified 12/28/16 17:58 Home Medications: Home Meds Aspirin [Halfprin] 81 mg PO DAILY 12/23/16 [History] Calcitriol [Rocaltrol] 0.25 mcg PO DAILY 12/23/16 [History] Cholecalciferol (Vitamin D3) [Vitamin D3] 1,000 unit PO QAM 12/23/16 [History] Dutasteride 0.5 mg PO DAILY 12/23/16 [History] Folic Acid 1 mg PO DAILY 12/23/16 [History] Gemfibrozil 600 mg PO BID 12/23/16 [History] Insulin Glargine,Hum.Rec.Anlog [Vince Silva] 14 unit SQ BEDTIME 12/23/16 [ History] Lisinopril 1.25 mg PO DAILY 12/23/16 [History] Sodium Bicarbonate 1,300 mg PO BID 12/23/16 [History] Tamsulosin [Flomax] 0.8 mg PO DAILY 12/23/16 [History] Warfarin [Coumadin] 5 mg PO WESA@1800 12/23/16 [History] amLODIPine [Norvasc] 5 mg PO DAILY 12/23/16 [History] Warfarin [Coumadin] 7.5 mg PO SUMOTUTHFR@1800 12/31/16 [History] Diltiazem [Cardizem CD] 360 mg PO DAILY #90 cap.cd 01/01/17 [Rx] Levofloxacin [Levaquin] 750 mg PO Q48H #2 tablet 01/01/17 [Rx] Metoprolol Succinate [Toprol XL] 50 mg PO BID #60 tab.er 01/01/17 [Rx] Past Medical History - Past Health History Medical/Surgical History: Denies Medical/Surgical History HEENT History: Reports: Impaired Vision, Other (See Below) 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, 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 Cardiovascular History: Reports: Afib, Hypertension, OR, Pacemaker Respiratory History: Reports: None Gastrointestinal History: Reports: None Genitourinary History: Reports: Chronic Renal Insuffiency Neurological History: Reports: TIA Endocrine/Metabolic History: Reports: Diabetes, Type II Oncologic (Cancer) History: Reports: Other (See Below) Other Oncologic History: bladder and kidney CA - Infectious Disease History Infectious Disease History: Reports: Chicken Pox, Measles, Mumps - Past Surgical History Male Surgical History: Reports: Other (See Below) Oncologic Surgical History: Reports: Other (See Below) Social & Family History - Family History Family Medical History: Noncontributory HEENT: Reports: None Cardiac: Reports: None Respiratory: Reports: None GI: Reports: None : Reports: None OBGYN: Reports: None Musculoskeletal: Reports: None Neurological: Reports: None Psychiatric: Reports: None Endocrine/Metabolic: Reports: None Hematologic: Reports: None Immunologic: Reports: None Dermatologic: Reports: None Oncologic: Reports: None - Tobacco Use Smoking Status *Q: Never Smoker Years of Tobacco use: 50 Packs/Tins Daily: 3 Used Tobacco, but Quit: Yes Month Tobacco Last Used: 1999 Second Hand Smoke Exposure: No - Caffeine Use Caffeine Use: Reports: Coffee, Tea Other Caffeine Use: 1-2 cups daily Caffeine Use Comment: 2cups/day - Recreational Drug Use Recreational Drug Use: No H&P Review of Systems - Review of Systems: Review Of Systems: ROS reveals no pertinent complaints other than HPI. Exam - Exam Exam: See Below - Vital Signs Vital Signs: Last Vital Signs Temp 36.8 C 08/02/17 13:49 Pulse 72 08/02/17 13:49 Resp 18 08/02/17 13:49 BP 112/58 L 08/02/17 13:49 Pulse Ox 95 08/02/17 13:49 Weight: 84.64 kg - Exam HEENT: Mucosa Moist & [place] Neck: Supple Lungs: Clear to Auscultation, Normal Respiratory Effort Cardiovascular: Regular Rate, Regular Rhythm GI/Abdominal Exam: No Organomegaly, No Distention, No Mass Extremities: Pedal Edema (mild) Skin: Warm, Dry, Intact Neurological: No: Focal Deficit - Patient Data Result Diagrams: 08/03/17 20:20 08/03/17 04:55 *Q Meaningful Use (ADM) - VTE *Q VTE Criteria *Q: - Stroke *Q Stroke Criteria *Q: - AMI *Q AMI Criteria *Q: Problem List Initiated/Reviewed/Updated: Yes Orders Last 24hrs: Active Orders 24 hr Category Date Time Status Patient Status [ADT] Routine ADT 08/02/17 14:59 Ordered Antiembolic Devices [RC] PER UNIT ROUTINE Care 08/02/17 15:01 Ordered Blood Glucose Check, Bedside [RC] TIDMEALS Care 08/02/17 14:59 Ordered Intake and Output [RC] QSHIFT Care 08/02/17 14:59 Ordered Oxygen Therapy [RC] PRN Care 08/02/17 14:59 Ordered Up ad Sara [RC] ASDIRECTED Care 08/02/17 14:59 Ordered VTE/DVT Education [RC] PER UNIT ROUTINE Care 08/02/17 14:59 Ordered Vital Signs [RC] Q4H Care 08/02/17 14:59 Ordered [place] [employer] Diet [DIET] Diet 08/02/17 Breakfast Ordered Chest 2V [CR] Stat Exams 08/02/17 14:03 Ordered CBC WITH AUTO DIFF [HEME] AM Lab 08/03/17 05:11 Ordered COMPREHENSIVE METABOLIC PN,CMP [CHEM] AM Lab 08/03/17 05:11 Ordered CULTURE URINE [RM] Routine Lab 08/02/17 14:03 Ordered UA W/MICROSCOPIC [URIN] Routine Lab 08/02/17 14:03 Ordered Insulin Aspart [NovoLOG] Med 08/02/17 15:00 Ordered See Protocol SUBCUT TIDAC Insulin Glargine,Hum.Rec.Anlog [Vince Solwalter] Med 08/02/17 21:00 Ordered 14 unit SQ BEDTIME Levofloxacin/Dextrose 5%-Water [Levaquin in D5W 750 MG/ Med 08/02/17 15:02 Ordered 150 ML] 750 mg Premix Bag 1 bag IV ONETIME Ondansetron [Zofran] Med 08/02/17 14:59 Ordered 4 mg IVPUSH Q4H PRN Sodium Chloride 0.9% [Normal Saline] 1,000 ml Med 08/02/17 14:15 Active IV ASDIRECTED Warfarin [Coumadin] Med 08/02/17 18:00 Ordered 7.5 mg PO SUMOTUTHFR@1800 Sequential Compression Device [OM.PC] Per Unit Routine Oth 08/02/17 14:59 Ordered Resuscitation Status Routine Resus Stat 08/02/17 14:59 Ordered Medication Orders Sodium Chloride (Normal Saline) 1,000 mls @ 125 mls/hr IV ASDIRECTED DAJUAN Stop: 08/02/17 22:14 Insulin Aspart (Novolog) 0 unit SUBCUT TIDAC [facility] PRN Reason: Protocol Insulin Glargine (Lantus Solostar) 14 units SUBCUT BEDTIME [facility] Ondansetron HCl (Zofran) 4 mg IVPUSH Q4H PRN PRN Reason: Nausea Warfarin Sodium (Coumadin) 7.5 mg PO SUMOTUTHFR@1800 [facility] Assessment/Plan Comment:: 86 yo male who presents with generalized weakness. Will check UA, and chest x- ray. Will start levaquin for suspect outpatient failure management of UTI vs respiratory infection.
[2017-08-02] MEDS: Insulin Aspart 100 Units/ML 3 ML Pen SUBCUT SCH ×2 (15:16→17:03)
[2017-08-02] MEDS: Insulin Glargine,Human Rec. Analog 100 Units/ML 3 ML Pen SUBCUT SCH (20:42)
[2017-08-03] MEDS: Insulin Aspart 100 Units/ML 3 ML Pen SUBCUT SCH ×3 (07:08→16:51)
[2017-08-03] MEDS ORDERED: Furosemide 40 MG/4 ML VIAL IVPUSH ONE (09:24)
--- NOTE | 2017-08-03 10:30 | PCM.PN ---
- General Info Date of Service: 08/03/17 Admission Dx/Problem (Free Text): Admission Diagnosis/Problem Admission Diagnosis/Problem Weakness Subjective Update: Patient states there is some improvement of sob but still present. He still feels weak. Denies chest pain. He is unable to tell us about changes in stool color due to baseline vision loss Functional Status: Reports: Pain Controlled - Review of Systems General: Reports: Weakness HEENT: Reports: Visual Changes, Other (baseline vision loss ) Pulmonary: Reports: Shortness of Breath Cardiovascular: Reports: Palpitations, Dyspnea on Exertion, Lightheadedness. Denies: Chest Pain Genitourinary: Reports: No Symptoms Musculoskeletal: Reports: No Symptoms Skin: Reports: No Symptoms Neurological: Reports: Headache - Patient Data Vitals - Most Recent: Last Vital Signs Temp 37.1 C 08/03/17 08:00 Pulse 104 H 08/03/17 08:00 Resp 16 08/03/17 08:00 BP 146/76 H 08/03/17 08:00 Pulse Ox 96 08/03/17 08:00 Weight - Most Recent: 84.64 kg I&O - Last 24 Hours: Intake & Output 08/02/17 08/03/17 08/03/17 22:59 06:59 14:59 Intake Total 50 450 Output Total 100 0 Balance -50 450 Lab Results Last 24 Hours: Laboratory Results - last 24 hr 08/02/17 08/02/17 08/02/17 Range/Units 14:45 16:14 20:38 WBC (4.0-11.0) K/uL RBC (4.50-5.90) M/uL Hgb (13.0-17.0) g/dL Hct (38.0-50.0) % MCV (80.0-98.0) fL MCH (27.0-32.0) pg MCHC (31.0-37.0) g/dL RDW Std Deviation (28.0-62.0) fl RDW Coeff of Davy (11.0-15.0) % Plt Count (150-400) K/uL MPV (7.40-12.00) fL Neut % (Auto) (48.0-80.0) % Lymph % (Auto) (16.0-40.0) % Gray % (Auto) (0.0-15.0) % Eos % (Auto) (0.0-7.0) % Baso % (Auto) (0.0-1.5) % Neut # (Auto) (1.4-5.7) K/uL Lymph # (Auto) (0.6-2.4) K/uL Gray # (Auto) (0.0-0.8) K/uL Eos # (Auto) (0.0-0.7) K/uL Baso # (Auto) (0.0-0.1) K/uL Nucleated RBC % /100WBC Nucleated RBCs # K/uL INR (0.86-1.11) Sodium (136-146) mmol/L Potassium (3.5-5.1) mmol/L Chloride (98-110) mmol/L Carbon Dioxide (21-31) mmol/L BUN (6.0-23.0) mg/dL Creatinine (0.6-1.5) mg/dL Est Cr Clr Drug Dosing mL/min Estimated GFR (MDRD) ml/min Glucose (60-110) mg/dL POC Glucose 179 H 232 H (60-110) mg/dL Calcium (8.8-10.8) mg/dL Total Bilirubin (0.1-1.5) mg/dL AST (5-40) IU/L ALT (8-54) IU/L Alkaline Phosphatase (40-150) Total Protein (6.0-8.0) g/dL Albumin (3.4-4.8) g/dL Globulin (2.0-3.5) g/dL Albumin/Globulin Ratio (1.3-2.8) Urine Color YELLOW Urine Appearance CLEAR Urine pH 7.0 (5.0-8.0) Ur Specific [place] 1.015 (1.001-1.035) Urine Protein 30 (NEGATIVE) mg/dL Urine Glucose (UA) NEGATIVE (NEGATIVE) mg/dL Urine Ketones NEGATIVE (NEGATIVE) mg/dL Urine Occult Blood SMALL H (NEGATIVE) Urine Nitrite NEGATIVE (NEGATIVE) Urine Bilirubin NEGATIVE (NEGATIVE) Urine Urobilinogen 0.2 (<2.0) EU/dL Ur Leukocyte Esterase NEGATIVE (NEGATIVE) Urine RBC 3-6 (0-2/HPF) Urine WBC 4-6 (0-5/HPF) Ur Epithelial Cells OCCASIONAL (NONE-FEW) Amorphous Sediment NOT SEEN (NEGATIVE) Urine Bacteria NOT SEEN (NEGATIVE) Urine Mucus NOT SEEN (NONE-MOD) 08/03/17 08/03/17 08/03/17 Range/Units 04:55 04:55 04:55 WBC 9.53 (4.0-11.0) K/uL RBC 2.93 L (4.50-5.90) M/uL Hgb 7.2 L (13.0-17.0) g/dL Hct 23.7 L (38.0-50.0) % MCV 80.9 (80.0-98.0) fL MCH 24.6 L (27.0-32.0) pg MCHC 30.4 L (31.0-37.0) g/dL RDW Std Deviation 53.5 (28.0-62.0) fl RDW Coeff of Davy 18 H (11.0-15.0) % Plt Count 253 (150-400) K/uL MPV 10.10 (7.40-12.00) fL Neut % (Auto) 59.2 (48.0-80.0) % Lymph % (Auto) 22.7 (16.0-40.0) % Gray % (Auto) 11.4 (0.0-15.0) % Eos % (Auto) 6.3 (0.0-7.0) % Baso % (Auto) 0.4 (0.0-1.5) % Neut # (Auto) 5.6 (1.4-5.7) K/uL Lymph # (Auto) 2.2 (0.6-2.4) K/uL Gray # (Auto) 1.1 H (0.0-0.8) K/uL Eos # (Auto) 0.6 (0.0-0.7) K/uL Baso # (Auto) 0.0 (0.0-0.1) K/uL Nucleated RBC % 0.0 /100WBC Nucleated RBCs # 0 K/uL INR 2.28 H (0.86-1.11) Sodium 138 (136-146) mmol/L Potassium 5.1 (3.5-5.1) mmol/L Chloride 111 H (98-110) mmol/L Carbon Dioxide 17 L (21-31) mmol/L BUN 72 H (6.0-23.0) mg/dL Creatinine 3.2 H (0.6-1.5) mg/dL Est Cr Clr Drug Dosing 14.68 mL/min Estimated GFR (MDRD) 18.5 ml/min Glucose 129 H (60-110) mg/dL POC Glucose (60-110) mg/dL Calcium 9.8 (8.8-10.8) mg/dL Total Bilirubin 0.3 (0.1-1.5) mg/dL AST 16 (5-40) IU/L ALT 15 (8-54) IU/L Alkaline Phosphatase 66 (40-150) Total Protein 7.0 (6.0-8.0) g/dL Albumin 3.8 (3.4-4.8) g/dL Globulin 3.2 (2.0-3.5) g/dL Albumin/Globulin Ratio 1.2 L (1.3-2.8) Urine Color Urine Appearance Urine pH (5.0-8.0) Ur Specific [place] (1.001-1.035) Urine Protein (NEGATIVE) mg/dL Urine Glucose (UA) (NEGATIVE) mg/dL Urine Ketones (NEGATIVE) mg/dL Urine Occult Blood (NEGATIVE) Urine Nitrite (NEGATIVE) Urine Bilirubin (NEGATIVE) Urine Urobilinogen (<2.0) EU/dL Ur Leukocyte Esterase (NEGATIVE) Urine RBC (0-2/HPF) Urine WBC (0-5/HPF) Ur Epithelial Cells (NONE-FEW) Amorphous Sediment (NEGATIVE) Urine Bacteria (NEGATIVE) Urine Mucus (NONE-MOD) 08/03/17 Range/Units 06:32 WBC (4.0-11.0) K/uL RBC (4.50-5.90) M/uL Hgb (13.0-17.0) g/dL Hct (38.0-50.0) % MCV (80.0-98.0) fL MCH (27.0-32.0) pg MCHC (31.0-37.0) g/dL RDW Std Deviation (28.0-62.0) fl RDW Coeff of Davy (11.0-15.0) % Plt Count (150-400) K/uL MPV (7.40-12.00) fL Neut % (Auto) (48.0-80.0) % Lymph % (Auto) (16.0-40.0) % Gray % (Auto) (0.0-15.0) % Eos % (Auto) (0.0-7.0) % Baso % (Auto) (0.0-1.5) % Neut # (Auto) (1.4-5.7) K/uL Lymph # (Auto) (0.6-2.4) K/uL Gray # (Auto) (0.0-0.8) K/uL Eos # (Auto) (0.0-0.7) K/uL Baso # (Auto) (0.0-0.1) K/uL Nucleated RBC % /100WBC Nucleated RBCs # K/uL INR (0.86-1.11) Sodium (136-146) mmol/L Potassium (3.5-5.1) mmol/L Chloride (98-110) mmol/L Carbon Dioxide (21-31) mmol/L BUN (6.0-23.0) mg/dL Creatinine (0.6-1.5) mg/dL Est Cr Clr Drug Dosing mL/min Estimated GFR (MDRD) ml/min Glucose (60-110) mg/dL POC Glucose 158 H (60-110) mg/dL Calcium (8.8-10.8) mg/dL Total Bilirubin (0.1-1.5) mg/dL AST (5-40) IU/L ALT (8-54) IU/L Alkaline Phosphatase (40-150) Total Protein (6.0-8.0) g/dL Albumin (3.4-4.8) g/dL Globulin (2.0-3.5) g/dL Albumin/Globulin Ratio (1.3-2.8) Urine Color Urine Appearance Urine pH (5.0-8.0) Ur Specific [place] (1.001-1.035) Urine Protein (NEGATIVE) mg/dL Urine Glucose (UA) (NEGATIVE) mg/dL Urine Ketones (NEGATIVE) mg/dL Urine Occult Blood (NEGATIVE) Urine Nitrite (NEGATIVE) Urine Bilirubin (NEGATIVE) Urine Urobilinogen (<2.0) EU/dL Ur Leukocyte Esterase (NEGATIVE) Urine RBC (0-2/HPF) Urine WBC (0-5/HPF) Ur Epithelial Cells (NONE-FEW) Amorphous Sediment (NEGATIVE) Urine Bacteria (NEGATIVE) Urine Mucus (NONE-MOD) Med Orders - Current: Current Medications Insulin Aspart (Novolog) 0 unit SUBCUT TIDAC [facility] PRN Reason: Protocol Last Admin: 08/03/17 07:08 Dose: 1 unit Insulin Glargine (Lantus Solostar) 14 units SUBCUT BEDTIME [facility] Last Admin: 08/02/17 20:42 Dose: 14 units Ondansetron HCl (Zofran) 4 mg IVPUSH Q4H PRN PRN Reason: Nausea Pneumococcal Polyvalent Vaccine (Pneumovax 23) 0.5 ml IM .ONCE ONE Stop: 08/05/17 15:24 Warfarin Sodium (Coumadin) 7.5 mg PO SuMoTuThFr@1400 DAJUAN Warfarin Sodium (Coumadin) 10 mg PO WeSa@1400 [facility] Discontinued Medications Furosemide (Lasix) 5 mg IVPUSH NOW ONE Stop: 08/03/17 09:25 Sodium Chloride (Normal Saline) 1,000 mls @ 125 mls/hr IV ASDIRECTED [facility] Stop: 08/02/17 22:14 Last Admin: 08/02/17 16:10 Dose: Not Given Levofloxacin/Dextrose 750 mg/ (Premix) 150 mls @ 100 mls/hr IV ONETIME ONE Stop: 08/02/17 16:31 Last Admin: 08/02/17 15:39 Dose: 100 mls/hr - Problem List Review Problem List Initiated/Reviewed/Updated: Yes - My Orders Last 24 Hours: My Active Orders 08/03/17 09:21 Transfuse RBC [Transfuse Red Blood Cells] [COMM] Stat - Plan Plan:: 86 yo male with history of AF, DM & Lung Ca s/p resection who presents with generalized weakness and Leukocytosis. UA negative for UTI and CXR negative for infiltrate. was started on levaquin for suspect outpatient failure management of UTI vs respiratory infection. Hb today 7.2. 1. Symptomatic Anemia: transfuse 2 units. collect stool for occult blood. 2. Leukocytosis: improving. currently on Levaquin for suspected UTI/Resp Infection. Will f/u cultures. 3. Acute on Chronic Kidney Disease: Creatinine currently 3.2. Baseline Cr. 2.4. start IVF after transfusion and monitor. 4. DM: on sliding scale 5. AF: currently rate controlled. monitor. on Coumadin. 6. DVT Prophylaxis: on Coumadin. INR 2.28.
[2017-08-03] MEDS ORDERED: Warfarin 10 MG Tab PO SCH (14:00)
[2017-08-03] MEDS ORDERED: Pantoprazole 80 MG in Sodium Chloride 0.9% 10 ML IVPUSH ONE (15:21)
[2017-08-03] MEDS: Pantoprazole 80 MG in Sodium Chloride 0.9% 100 ML IV SCH (16:43)
[2017-08-03] MEDS: Nystatin Topical Powder 15 GM Bottle TOP SCH (16:49)
[2017-08-03] MEDS: Insulin Glargine,Human Rec. Analog 100 Units/ML 3 ML Pen SUBCUT SCH (21:21)
[2017-08-03] MEDS: Metoprolol Succinate 50 MG Tab.ER PO SCH (21:56)
[2017-08-03] MEDS: Acetaminophen 325 MG Tab PO PRN (23:08)
[2017-08-04] MEDS: Nystatin Topical Powder 15 GM Bottle TOP SCH ×3 (00:07→16:30)
[2017-08-04] MEDS: Pantoprazole 80 MG in Sodium Chloride 0.9% 100 ML IV SCH ×3 (02:39→22:01)
[2017-08-04] MEDS: Insulin Aspart 100 Units/ML 3 ML Pen SUBCUT SCH ×3 (07:22→16:31)
[2017-08-04] MEDS: Diltiazem 120 MG Cap.CD PO SCH (08:20)
[2017-08-04] MEDS: Metoprolol Succinate 50 MG Tab.ER PO SCH ×2 (08:20→21:00)
--- NOTE | 2017-08-04 10:20 | PCM.PN ---
- General Info Date of Service: 08/04/17 Admission Dx/Problem (Free Text): Admission Diagnosis/Problem Admission Diagnosis/Problem Weakness Subjective Update: Patient feels better today. Weakness is improving. Patient still having difficulty walking. Stool occult blood was positive. He has never had a colonoscopy. Functional Status: Reports: Pain Controlled, Tolerating Diet. Denies: Ambulating - Review of Systems HEENT: Reports: No Symptoms Pulmonary: Reports: No Symptoms Cardiovascular: Reports: No Symptoms Gastrointestinal: Reports: No Symptoms Genitourinary: Reports: Other (baseline incontinence) Musculoskeletal: Reports: No Symptoms Skin: Reports: No Symptoms Neurological: Reports: No Symptoms Psychiatric: Reports: No Symptoms - Patient Data Vitals - Most Recent: Last Vital Signs Temp 36.9 C 08/04/17 03:10 Pulse 105 H 08/04/17 08:20 Resp 18 08/04/17 03:10 BP 138/94 H 08/04/17 08:20 Pulse Ox 92 L 08/04/17 03:10 Weight - Most Recent: 84.64 kg I&O - Last 24 Hours: Intake & Output 08/03/17 08/04/17 08/04/17 22:59 06:59 14:59 Intake Total 1345 850 Output Total 1225 1850 Balance 120 -1000 Lab Results Last 24 Hours: Laboratory Results - last 24 hr 08/03/17 08/03/17 08/03/17 Range/Units 10:39 11:47 16:46 WBC (4.0-11.0) K/uL RBC (4.50-5.90) M/uL Hgb (13.0-17.0) g/dL Hct (38.0-50.0) % MCV (80.0-98.0) fL MCH (27.0-32.0) pg MCHC (31.0-37.0) g/dL RDW Std Deviation (28.0-62.0) fl RDW Coeff of Davy (11.0-15.0) % Plt Count (150-400) K/uL MPV (7.40-12.00) fL Neut % (Auto) (48.0-80.0) % Lymph % (Auto) (16.0-40.0) % Banks % (Auto) (0.0-15.0) % Eos % (Auto) (0.0-7.0) % Baso % (Auto) (0.0-1.5) % Neut # (Auto) (1.4-5.7) K/uL Lymph # (Auto) (0.6-2.4) K/uL [place] # (Auto) (0.0-0.8) K/uL Eos # (Auto) (0.0-0.7) K/uL Baso # (Auto) (0.0-0.1) K/uL Nucleated RBC % /100WBC Nucleated RBCs # K/uL INR (0.86-1.11) Sodium (136-146) mmol/L Potassium (3.5-5.1) mmol/L Chloride (98-110) mmol/L Carbon Dioxide (21-31) mmol/L BUN (6.0-23.0) mg/dL Creatinine (0.6-1.5) mg/dL Est Cr Clr Drug Dosing mL/min Estimated GFR (MDRD) ml/min Glucose (60-110) mg/dL POC Glucose 209 H 160 H (60-110) mg/dL Calcium (8.8-10.8) mg/dL Blood Type A POSITIVE Antibody Screen NEGATIVE Crossmatch See Detail 08/03/17 08/03/17 08/03/17 Range/Units 20:17 20:20 20:20 WBC (4.0-11.0) K/uL RBC (4.50-5.90) M/uL Hgb 8.9 L (13.0-17.0) g/dL Hct 28.2 L (38.0-50.0) % MCV (80.0-98.0) fL MCH (27.0-32.0) pg MCHC (31.0-37.0) g/dL RDW Std Deviation (28.0-62.0) fl RDW Coeff of Davy (11.0-15.0) % Plt Count (150-400) K/uL MPV (7.40-12.00) fL Neut % (Auto) (48.0-80.0) % Lymph % (Auto) (16.0-40.0) % Banks % (Auto) (0.0-15.0) % Eos % (Auto) (0.0-7.0) % Baso % (Auto) (0.0-1.5) % Neut # (Auto) (1.4-5.7) K/uL Lymph # (Auto) (0.6-2.4) K/uL [place] # (Auto) (0.0-0.8) K/uL Eos # (Auto) (0.0-0.7) K/uL Baso # (Auto) (0.0-0.1) K/uL Nucleated RBC % /100WBC Nucleated RBCs # K/uL INR (0.86-1.11) Sodium (136-146) mmol/L Potassium (3.5-5.1) mmol/L Chloride (98-110) mmol/L Carbon Dioxide (21-31) mmol/L BUN (6.0-23.0) mg/dL Creatinine (0.6-1.5) mg/dL Est Cr Clr Drug Dosing mL/min Estimated GFR (MDRD) ml/min Glucose (60-110) mg/dL POC Glucose 140 H (60-110) mg/dL Calcium (8.8-10.8) mg/dL Blood Type Antibody Screen Crossmatch 08/04/17 08/04/17 08/04/17 Range/Units 05:26 05:26 05:26 WBC 8.93 (4.0-11.0) K/uL RBC 3.84 L (4.50-5.90) M/uL Hgb 9.9 L (13.0-17.0) g/dL Hct 31.0 L (38.0-50.0) % MCV 80.7 (80.0-98.0) fL MCH 25.8 L (27.0-32.0) pg MCHC 31.9 (31.0-37.0) g/dL RDW Std Deviation 50.9 (28.0-62.0) fl RDW Coeff of Davy 18 H (11.0-15.0) % Plt Count 230 (150-400) K/uL MPV 10.00 (7.40-12.00) fL Neut % (Auto) 60.5 (48.0-80.0) % Lymph % (Auto) 19.8 (16.0-40.0) % Banks % (Auto) 11.6 (0.0-15.0) % Eos % (Auto) 7.7 H (0.0-7.0) % Baso % (Auto) 0.4 (0.0-1.5) % Neut # (Auto) 5.4 (1.4-5.7) K/uL Lymph # (Auto) 1.8 (0.6-2.4) K/uL [place] # (Auto) 1.0 H (0.0-0.8) K/uL Eos # (Auto) 0.7 (0.0-0.7) K/uL Baso # (Auto) 0.0 (0.0-0.1) K/uL Nucleated RBC % 0.0 /100WBC Nucleated RBCs # 0 K/uL INR 1.64 H (0.86-1.11) Sodium 141 (136-146) mmol/L Potassium 4.3 (3.5-5.1) mmol/L Chloride 115 H (98-110) mmol/L Carbon Dioxide 16 L (21-31) mmol/L BUN 60 H (6.0-23.0) mg/dL Creatinine 2.8 H (0.6-1.5) mg/dL Est Cr Clr Drug Dosing 16.77 mL/min Estimated GFR (MDRD) 21.5 ml/min Glucose 113 H (60-110) mg/dL POC Glucose (60-110) mg/dL Calcium 9.7 (8.8-10.8) mg/dL Blood Type Antibody Screen Crossmatch 08/04/17 Range/Units 06:35 WBC (4.0-11.0) K/uL RBC (4.50-5.90) M/uL Hgb (13.0-17.0) g/dL Hct (38.0-50.0) % MCV (80.0-98.0) fL MCH (27.0-32.0) pg MCHC (31.0-37.0) g/dL RDW Std Deviation (28.0-62.0) fl RDW Coeff of Davy (11.0-15.0) % Plt Count (150-400) K/uL MPV (7.40-12.00) fL Neut % (Auto) (48.0-80.0) % Lymph % (Auto) (16.0-40.0) % [place] % (Auto) (0.0-15.0) % Eos % (Auto) (0.0-7.0) % Baso % (Auto) (0.0-1.5) % Neut # (Auto) (1.4-5.7) K/uL Lymph # (Auto) (0.6-2.4) K/uL [place] # (Auto) (0.0-0.8) K/uL Eos # (Auto) (0.0-0.7) K/uL Baso # (Auto) (0.0-0.1) K/uL Nucleated RBC % /100WBC Nucleated RBCs # K/uL INR (0.86-1.11) Sodium (136-146) mmol/L Potassium (3.5-5.1) mmol/L Chloride (98-110) mmol/L Carbon Dioxide (21-31) mmol/L BUN (6.0-23.0) mg/dL Creatinine (0.6-1.5) mg/dL Est Cr Clr Drug Dosing mL/min Estimated GFR (MDRD) ml/min Glucose (60-110) mg/dL POC Glucose 92 (60-110) mg/dL Calcium (8.8-10.8) mg/dL Blood Type Antibody Screen Crossmatch [facility] Results Last 24 Hours: Microbiology 08/02/17 14:45 Urine Culture - Final Urine, Catheterized No Growth 08/03/17 13:55 Stool Occult Blood (CATRACHO) - Final Stool / Feces POSITIVE OCCULT BLOOD Med Orders - Current: Current Medications Acetaminophen (Tylenol) 650 mg PO Q4H PRN PRN Reason: Pain/Fever Last Admin: 08/03/17 23:08 Dose: 650 mg Diltiazem HCl (Cardizem Cd) 360 mg PO DAILY [facility] Last Admin: 08/04/17 08:20 Dose: 360 mg Pantoprazole Sodium 80 mg/ (Sodium Chloride) 100 mls @ 10 mls/hr IV Q10H [facility] Last Admin: 08/04/17 02:39 Dose: 10 mls/hr Insulin Aspart (Novolog) 0 unit SUBCUT TIDAC [facility] PRN Reason: Protocol Last Admin: 08/04/17 07:22 Dose: Not Given Insulin Glargine (Lantus Solostar) 14 units SUBCUT BEDTIME [facility] Last Admin: 08/03/17 21:21 Dose: 14 units Metoprolol Succinate (Toprol Xl) 50 mg PO BID [facility] Last Admin: 08/04/17 08:20 Dose: 50 mg Nystatin (Nystop) 0 gm TOP Q8H [facility] Last Admin: 08/04/17 08:20 Dose: 1 applic Ondansetron HCl (Zofran) 4 mg IVPUSH Q4H PRN PRN Reason: Nausea Pneumococcal Polyvalent Vaccine (Pneumovax 23) 0.5 ml IM .ONCE ONE Stop: 08/05/17 15:24 Discontinued Medications Furosemide (Lasix) 5 mg IVPUSH NOW ONE Stop: 08/03/17 09:25 Last Admin: 08/03/17 16:25 Dose: Not Given Sodium Chloride (Normal Saline) 1,000 mls @ 125 mls/hr IV ASDIRECTED [facility] Stop: 08/02/17 22:14 Last Admin: 08/02/17 16:10 Dose: Not Given Levofloxacin/Dextrose 750 mg/ (Premix) 150 mls @ 100 mls/hr IV ONETIME ONE Stop: 08/02/17 16:31 Last Admin: 08/02/17 15:39 Dose: 100 mls/hr Pantoprazole Sodium 80 mg/ (Sodium Chloride) 10 mls @ 300 mls/hr IVPUSH NOW ONE Stop: 08/03/17 15:22 Last Admin: 08/03/17 16:35 Dose: 300 mls/hr Warfarin Sodium (Coumadin) 7.5 mg PO SuMoTuThFr@1400 DAJUAN Warfarin Sodium (Coumadin) 10 mg PO WeSa@1400 [facility] Last Admin: 08/03/17 14:13 Dose: 10 mg - Exam General: Alert, Oriented, No Acute Distress HEENT: Other (baseline vision loss ) Neck: Supple, No JVD Lungs: Clear to Auscultation, Normal Respiratory Effort GI/Abdominal Exam: Normal Bowel Sounds, Soft, Non-Tender, No Distention Extremities: No Pedal Edema - Problem List Review Problem List Initiated/Reviewed/Updated: Yes - My Orders Last 24 Hours: My Active Orders 08/03/17 12:23 Bladder Scan [RC] ONETIME 08/03/17 16:30 Nystatin [Nystop] 0 gm TOP Q8H - Plan Plan:: 86 yo male with history 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 Transfused 2 units of blood. Weakness improved. Patient has not had colonoscopy. 1. Anemia: transfused 2 units. Hb currently 9.9. repeat H&H in PM. consult surgery for colonoscopy for suspected GI bleed. hold coumadin. on Protonix Drip. 2. Leukocytosis: resolved. low suspicion for infection. Antibiotics DC. Will f/ u cultures. 3. Acute on Chronic Kidney Disease: Cr improving, currently 2.8. Baseline Cr. 2.4. continue IVF. Suspect Post-renal failure. Patient refuses consult with Dr. Sparrow due to personal reasons. 4. DM: on sliding scale 5. AF: currently rate controlled. continue Metoprolol and Cardizem. 6. DVT Prophylaxis: hold coumadin for suspicion of gi bleed. SCD. 7. Weakness: improving. encourage ambulation.
[2017-08-04] MEDS ORDERED: Warfarin 5 MG Tab PO SCH (14:00)
[2017-08-04] MEDS: Acetaminophen 325 MG Tab PO PRN (21:01)
[2017-08-04] MEDS: Insulin Glargine,Human Rec. Analog 100 Units/ML 3 ML Pen SUBCUT SCH (21:01)
[2017-08-05] MEDS: Nystatin Topical Powder 15 GM Bottle TOP SCH ×2 (01:58→08:14)
[2017-08-05] MEDS: Insulin Aspart 100 Units/ML 3 ML Pen SUBCUT SCH ×2 (06:30→11:50)
[2017-08-05] MEDS: Diltiazem 120 MG Cap.CD PO SCH (08:15)
[2017-08-05] MEDS: Metoprolol Succinate 50 MG Tab.ER PO SCH (08:15)
[2017-08-05] MEDS: Pantoprazole 80 MG in Sodium Chloride 0.9% 100 ML IV SCH (08:19)
--- NOTE | 2017-08-05 08:54 | PCM.DCSUM1 ---
Discharge Summary - Hospital Course Brief History: 86 yo male with pmh of atrial fibrillation, CAD, DM, HTN and CKD who for the past several weeks has complained of generalized weakness, malaise, shortness of breath and productive cough. He is followed by Dr. Rangel as an outpatient he had been treating him with Inga followed by getachew for UTI. He was seen in clinic again today and referred for admission. - Discharge Data Discharge Date: 08/05/17 Discharge Disposition: Home, Self-Care 01 Condition: Good - Discharge Diagnosis/Problem(s) (1) General weakness SNOMED Code(s): 45555588 ICD Code: R53.1 - WEAKNESS Status: Acute - Patient Summary/Data Consults: Consultations 08/02/17 21:51 PT Evaluation and Treatment [CONS] Routine - Patient Instructions Diet: Heart Healthy Diet Activity: As Tolerated Showering/Bathing: May Shower Notify Provider of: Fever, Increased Pain, Swelling and Redness, Drainage, Nausea and/or Vomiting - Discharge Plan Prescriptions/Med Rec: Pantoprazole Sodium [Protonix] 40 mg PO BID #60 tablet.dr Chambers Medications: Home Meds Calcitriol [Rocaltrol] 0.25 mcg PO DAILY 12/23/16 [History] Cholecalciferol (Vitamin D3) [Vitamin D3] 1,000 unit PO QAM 12/23/16 [History] Dutasteride 0.5 mg PO DAILY 12/23/16 [History] Folic Acid 1 mg PO DAILY 12/23/16 [History] Gemfibrozil 600 mg PO BID 12/23/16 [History] Insulin Glargine,Hum.Rec.Anlog [Vince Silva] 14 unit SQ BEDTIME 12/23/16 [ History] Lisinopril 1.25 mg PO DAILY 12/23/16 [History] Sodium Bicarbonate 1,300 mg PO BID 12/23/16 [History] Tamsulosin [Flomax] 0.8 mg PO DAILY 12/23/16 [History] amLODIPine [Norvasc] 5 mg PO DAILY 12/23/16 [History] Diltiazem [Cardizem CD] 360 mg PO DAILY #90 cap.cd 01/01/17 [Rx] Metoprolol Succinate [Toprol XL] 50 mg PO BID #60 tab.er 01/01/17 [Rx] Pantoprazole Sodium [Protonix] 40 mg PO BID #60 tablet. 08/05/17 [Rx] Patient Handouts: Gallegos Catheter Care, Adult, Weakness, [id number], Pantoprazole tablets Referrals: Erwin Jo MD [Physician] - 08/13/17 10:00 am Dread Burr MD [Primary Care Provider] - 08/12/17 10:45 am Osiel Amaya MD [Ordering Only Provider] - 08/26/17 2:30 pm - Discharge Summary/Plan Comment DC Time >30 min.: No Discharge Summary/Plan Comment: Discharge Diagnoses: GI bleed Generalized weakness Hx UTI DM type 2 HTN Afib Chronic anticoagulation- Coumadin D[place]ne was admitted and treated with Protonix for GI bleed, hemoglobin dropped to 7.2 on day 2 of admission, He was transfused with 3 units PRBCs and hgb elevated to 9.9 and remained stable at 10.6 today. Hemoccult positive. He is requesting discharge today and would like to see a surgeon on outpatient basis. We recommended EGD/colonoscopy. He is on chronic anticoagulation with Coumadin for Afib. This will be held until surgery follow up. He will be sent home with Protonix BID x 1 month. During his stay MINDA noted along with urinary retention. Gallegos catheter was placed and MINDA returning to normal, today Cr 2.9, baseline 2.4. Gallegos will be left in and follow up arranged with Urologist in [place], per patient request. UC negative for growth, no antibiotics at this time. Leukocytosis likely secondary to blood transfusion. All other medications to be continued. HOLD Coumadin and ASA. He is requesting discharge today and is feeling good. Will discharge home with PCP follow up along with Urology and General surgery. He is to return to ED or clinic if concerns should arise. - General Info Date of Service: 08/05/17 Admission Dx/Problem (Free Text: Admission Diagnosis/Problem Admission Diagnosis/Problem Weakness Subjective Update: Requesting discharge today. Denies chest pain or SOB. Reports being up ambulating and doing well. Functional Status: Reports: Pain Controlled, Tolerating Diet, Ambulating - Review of Systems General: Reports: No Symptoms. Denies: Fever HEENT: Reports: No Symptoms Pulmonary: Reports: No Symptoms. Denies: Shortness of Breath Cardiovascular: Reports: No Symptoms. Denies: Chest Pain, Palpitations Gastrointestinal: Reports: No Symptoms. Denies: Abdominal Pain, Nausea, Vomiting Genitourinary: Reports: No Symptoms. Denies: Dysuria, Frequency, Burning Psychiatric: Reports: No Symptoms. Denies: Confusion - Patient Data Vitals - Most Recent: Last Vital Signs Temp 98.1 F 08/05/17 08:00 Pulse 91 08/05/17 08:15 Resp 20 08/05/17 08:00 BP 145/71 H 08/05/17 08:15 Pulse Ox 96 08/05/17 08:00 Weight - Most Recent: 84.64 kg I&O - Last 24 hours: Intake & Output 08/04/17 08/05/17 08/05/17 22:59 06:59 14:59 Intake Total 592 330 20 Output Total 1180 1250 Balance -588 -920 20 Lab Results - Last 24 hrs: Laboratory Results - last 24 hr 08/04/17 08/04/17 08/04/17 Range/Units 11:38 16:24 16:50 WBC (4.0-11.0) K/uL RBC (4.50-5.90) M/uL Hgb 10.6 L (13.0-17.0) g/dL Hct 33.5 L (38.0-50.0) % MCV (80.0-98.0) fL MCH (27.0-32.0) pg MCHC (31.0-37.0) g/dL RDW Std Deviation (28.0-62.0) fl RDW Coeff of Davy (11.0-15.0) % Plt Count (150-400) K/uL MPV (7.40-12.00) fL Neut % (Auto) (48.0-80.0) % Lymph % (Auto) (16.0-40.0) % Galax % (Auto) (0.0-15.0) % Eos % (Auto) (0.0-7.0) % Baso % (Auto) (0.0-1.5) % Neut # (Auto) (1.4-5.7) K/uL Lymph # (Auto) (0.6-2.4) K/uL Galax # (Auto) (0.0-0.8) K/uL Eos # (Auto) (0.0-0.7) K/uL Baso # (Auto) (0.0-0.1) K/uL Nucleated RBC % /100WBC Nucleated RBCs # K/uL INR (0.86-1.11) Sodium (136-146) mmol/L Potassium (3.5-5.1) mmol/L Chloride (98-110) mmol/L Carbon Dioxide (21-31) mmol/L BUN (6.0-23.0) mg/dL Creatinine (0.6-1.5) mg/dL Est Cr Clr Drug Dosing mL/min Estimated GFR (MDRD) ml/min Glucose (60-110) mg/dL POC Glucose 121 H 165 H (60-110) mg/dL Calcium (8.8-10.8) mg/dL 08/05/17 08/05/17 08/05/17 Range/Units 05:23 05:23 05:23 WBC 11.54 H (4.0-11.0) K/uL RBC 4.08 L (4.50-5.90) M/uL Hgb 10.6 L (13.0-17.0) g/dL Hct 33.5 L (38.0-50.0) % MCV 82.1 (80.0-98.0) fL MCH 26.0 L (27.0-32.0) pg MCHC 31.6 (31.0-37.0) g/dL RDW Std Deviation 53.4 (28.0-62.0) fl RDW Coeff of Davy 18 H (11.0-15.0) % Plt Count 236 (150-400) K/uL MPV 10.00 (7.40-12.00) fL Neut % (Auto) 60.5 (48.0-80.0) % Lymph % (Auto) 21.8 (16.0-40.0) % Galax % (Auto) 10.1 (0.0-15.0) % Eos % (Auto) 7.1 H (0.0-7.0) % Baso % (Auto) 0.5 (0.0-1.5) % Neut # (Auto) 7.0 H (1.4-5.7) K/uL Lymph # (Auto) 2.5 H (0.6-2.4) K/uL Galax # (Auto) 1.2 H (0.0-0.8) K/uL Eos # (Auto) 0.8 H (0.0-0.7) K/uL Baso # (Auto) 0.1 (0.0-0.1) K/uL Nucleated RBC % 0.0 /100WBC Nucleated RBCs # 0 K/uL INR 1.46 H (0.86-1.11) Sodium 141 (136-146) mmol/L Potassium 4.8 (3.5-5.1) mmol/L Chloride 115 H (98-110) mmol/L Carbon Dioxide 17 L (21-31) mmol/L BUN 62 H (6.0-23.0) mg/dL Creatinine 2.9 H (0.6-1.5) mg/dL Est Cr Clr Drug Dosing 16.19 mL/min Estimated GFR (MDRD) 20.7 ml/min Glucose 111 H (60-110) mg/dL POC Glucose (60-110) mg/dL Calcium 9.5 (8.8-10.8) mg/dL 08/05/17 Range/Units 06:30 WBC (4.0-11.0) K/uL RBC (4.50-5.90) M/uL Hgb (13.0-17.0) g/dL Hct (38.0-50.0) % MCV (80.0-98.0) fL MCH (27.0-32.0) pg MCHC (31.0-37.0) g/dL RDW Std Deviation (28.0-62.0) fl RDW Coeff of Davy (11.0-15.0) % Plt Count (150-400) K/uL MPV (7.40-12.00) fL Neut % (Auto) (48.0-80.0) % Lymph % (Auto) (16.0-40.0) % Galax % (Auto) (0.0-15.0) % Eos % (Auto) (0.0-7.0) % Baso % (Auto) (0.0-1.5) % Neut # (Auto) (1.4-5.7) K/uL Lymph # (Auto) (0.6-2.4) K/uL Galax # (Auto) (0.0-0.8) K/uL Eos # (Auto) (0.0-0.7) K/uL Baso # (Auto) (0.0-0.1) K/uL Nucleated RBC % /100WBC Nucleated RBCs # K/uL INR (0.86-1.11) Sodium (136-146) mmol/L Potassium (3.5-5.1) mmol/L Chloride (98-110) mmol/L Carbon Dioxide (21-31) mmol/L BUN (6.0-23.0) mg/dL Creatinine (0.6-1.5) mg/dL Est Cr Clr Drug Dosing mL/min Estimated GFR (MDRD) ml/min Glucose (60-110) mg/dL POC Glucose 113 H (60-110) mg/dL Calcium (8.8-10.8) mg/dL ANKUR Results - Last 24 hrs: Microbiology 08/02/17 14:45 Urine Culture - Final Urine, Catheterized No Growth Med Orders - Current: Current Medications Acetaminophen (Tylenol) 650 mg PO Q4H PRN PRN Reason: Pain/Fever Last Admin: 08/04/17 21:01 Dose: 650 mg Diltiazem HCl (Cardizem Cd) 360 mg PO DAILY [facility] Last Admin: 08/05/17 08:15 Dose: 360 mg Pantoprazole Sodium 80 mg/ (Sodium Chloride) 100 mls @ 10 mls/hr IV Q10H [facility] Last Admin: 08/05/17 08:19 Dose: 10 mls/hr Insulin Aspart (Novolog) 0 unit SUBCUT TIDAC [facility] PRN Reason: Protocol Last Admin: 08/05/17 06:30 Dose: Not Given Insulin Glargine (Lantus Solostar) 14 units SUBCUT BEDTIME [facility] Last Admin: 08/04/17 21:01 Dose: 14 units Metoprolol Succinate (Toprol Xl) 50 mg PO BID [facility] Last Admin: 08/05/17 08:15 Dose: 50 mg Nystatin (Nystop) 0 gm TOP Q8H [facility] Last Admin: 08/05/17 08:14 Dose: 1 applic Ondansetron HCl (Zofran) 4 mg IVPUSH Q4H PRN PRN Reason: Nausea Pneumococcal Polyvalent Vaccine (Pneumovax 23) 0.5 ml IM .ONCE ONE Stop: 08/05/17 15:24 Discontinued Medications Furosemide (Lasix) 5 mg IVPUSH NOW ONE Stop: 08/03/17 09:25 Last Admin: 08/03/17 16:25 Dose: Not Given Sodium Chloride (Normal Saline) 1,000 mls @ 125 mls/hr IV ASDIRECTED [facility] Stop: 08/02/17 22:14 Last Admin: 08/02/17 16:10 Dose: Not Given Levofloxacin/Dextrose 750 mg/ (Premix) 150 mls @ 100 mls/hr IV ONETIME ONE Stop: 08/02/17 16:31 Last Admin: 08/02/17 15:39 Dose: 100 mls/hr Pantoprazole Sodium 80 mg/ (Sodium Chloride) 10 mls @ 300 mls/hr IVPUSH NOW ONE Stop: 08/03/17 15:22 Last Admin: 08/03/17 16:35 Dose: 300 mls/hr Warfarin Sodium (Coumadin) 7.5 mg PO SuMoTuThFr@1400 DAJUAN Warfarin Sodium (Coumadin) 10 mg PO WeSa@1400 DAJUAN Last Admin: 08/03/17 14:13 Dose: 10 mg - Exam General: Reports: Alert, Oriented, Cooperative, No Acute Distress HEENT: Reports: Pupils Equal, Pupils Reactive, EOMI, Mucous Membr. Moist/Pease Lungs: Reports: Clear to Auscultation, Normal Respiratory Effort Cardiovascular: Reports: Regular Rate, Regular Rhythm GI/Abdominal Exam: Normal Bowel Sounds, Soft, Non-Tender, No Organomegaly, No Distention, No Abnormal Bruit, No Mass, Pelvis Stable Skin: Reports: Warm, Dry, Intact Neurological: Reports: No New Focal Deficit *Q Meaningful Use (DIS) - VTE *Q VTE Criteria *Q: - Stroke *Q Stroke Criteria *Q: - AMI *Q AMI Criteria *Q:
[2017-08-05] MEDS ORDERED: FLU Vacc QS 2017-18 (36mos UP)/PF 60 MCG/0.5 ML Syringe IM ONE ×2 (09:15→15:23)
[2017-08-05 11:42] VITALS: BP 124/58
--- NOTE | 2017-08-05 11:45 | CR ---
EXAM DATE: 08/02/17 PATIENT'S AGE: 86 Patient: GREGORIO CAPELLAN Facility: [place], [place] Site . Site : 1930 Study: XRay Chest [id number]/29/2017 3:18:48 PM Ordering Physician: Donato Clark Final Report: HISTORY: Shortness of breath. FINDINGS: PA and lateral chest radiographs are compared with 28 December 2016. Left subclavian transvenous pacer is in place with 2 intact leads. Cardiac silhouette is at the upper limits of normal. Pulmonary vasculature is free of cephalization. No consolidation or pleural effusion is seen. Vertebral body heights maintained within the thoracic spine. IMPRESSION: No acute cardiopulmonary disease. Dictated by Millie Thayer MD @ 08/02/2017 3:57:06 PM Dictated by: Millie Thayer MD @ 08/02/2017 15:57:15 (Electronic Signature) Report Signed by Proxy. JOSÉ MIGUEL
[2017-08-05] MEDS ORDERED: Pneumococcal Polyvalent-23 Vaccine 0.5 ML SDV IM ONE ×2 (13:15→15:23)
== END 2017-08-05 14:45 | disposition home or self-care (01) | DRG 378 ==
LOC: MW.MS 13:22
PROVIDERS: ADMIT Internal Medicine; ATTEND Internal Medicine
PROC: 30233N1 Transfusion of Nonautologous Red Blood Cells into Peripheral Vein, Percutaneous Approach (ICD-10-PCS; principal; 2017-08-03)
PROC: 3E0234Z Introduction of Serum, Toxoid and Vaccine into Muscle, Percutaneous Approach (ICD-10-PCS; 2017-08-05)
DX: K92.2 Gastrointestinal hemorrhage, unspecified (principal); N39.0 Urinary tract infection, site not specified; N17.9 Acute kidney failure, unspecified; R53.1 Weakness; I48.91 Unspecified atrial fibrillation; E11.9 Type 2 diabetes mellitus without complications; I12.9 Hypertensive chronic kidney disease with stage 1 through stage 4 chronic kidney disease, or unspecified chronic kidney disease; N18.9 Chronic kidney disease, unspecified; R33.9 Retention of urine, unspecified; D72.829 Elevated white blood cell count, unspecified; I25.10 Atherosclerotic heart disease of native coronary artery without angina pectoris; I25.2 Old myocardial infarction; Z88.8 Allergy status to other drugs, medicaments and biological substances; Z79.01 Long term (current) use of anticoagulants; Z79.899 Other long term (current) drug therapy; Z95.0 Presence of cardiac pacemaker; Z86.73 Personal history of transient ischemic attack (TIA), and cerebral infarction without residual deficits; Z23 Encounter for immunization
CPT/HCPCS: 36415; 36430; 51701; 51702; 71020; 71020-26; 80048; 80053; 81001; 82272; 82962; 85014; 85018; 85025; 85610; 86850; 86900; 86901; 86920; 86921; 86922; 87086; 90686; 90732; 97161-GP; A9270-GY; C9113; G0008; G0009; J1815-GY; J1956; J7030; J7040; P9016

== ENCOUNTER 2018-12-05 12:01 | Observation (INO) | payer MEDICARE, BC ==
[2018-12-05] MEDS ORDERED: Sodium Chloride 0.9% 2.5 ML Syringe FLUSH PRN (12:06)
[2018-12-05] MEDS ORDERED: Sodium Chloride 0.9% 10 ML Syringe FLUSH PRN (12:06)
--- NOTE | 2018-12-05 12:19 | EDM.PDOC ---
<Esthela Singletary - Last Filed: 12/05/18 13:55> ED HPI GENERAL MEDICAL PROBLEM - General Chief Complaint: Neuro Symptoms/Deficits Stated Complaint: NO RESPONDING Time Seen by Provider: 12/05/18 12:09 - History of Present Illness INITIAL COMMENTS - FREE TEXT/NARRATIVE: This is Dr. Singletary dictating an addendum note as I'm the supervising physician on this case. I personally seen and evaluated the patient and spoken to the at bedside. She tells me that the last normal time was 8 AM which are due to his age and pre-existing medical problems would put him in the window for TPA at this point. She says that he has been moving all extremities and she did not notice any slurring in his speech when he was speaking or any facial droop throughout the course of transporting him here. She tells me that he actually got up and walked to the car in order to get here to the ER. On my evaluation he is moving all extremities and does not exhibit any facial droop. Initially I was told that he was nonverbal but as I was examining him, and my hands are very cold, he started talking saying "cold cold cold". When I expressed delight that he was talking he responded "of course I'm talking". At this point he is maintaining his airway and he is not exhibiting any signs of any pain or distress. We will continue with his workup and plan for admission. The says that he had a long-standing history of Coumadin use but because he was not being compliant with a follow-up they stopped it and he only takes a baby aspirin daily. He has never had any issues as a result of his A. fib with clotting disorders. These note that we had significant difficulties with lab and the specimens so blood results and lab tests results were delayed. This was conveyed to the at bedside. At this point the patient is significantly improving and for the reasons stated above as well as his continued improvement he is not a TPA candidate. - Related Data Allergies Allergy/AdvReac Type Severity Reaction Status Date / Time acetaminophen Allergy Headache Verified 12/05/18 12:10 [From Excedrin Back and Body] calcium carbonate Allergy Headache Verified 12/05/18 12:10 [From Excedrin Back and Body] moexipril [From Univasc] Allergy Cough Verified 12/05/18 12:10 oseltamivir [From Tamiflu] Allergy Hallucinati Verified 12/05/18 12:10 ons terazosin [From Hytrin] Allergy Rash Verified 12/05/18 12:10 Home Meds: Home Meds Dutasteride 0.5 mg PO BID 12/23/16 [History] Folic Acid 1 mg PO DAILY 12/23/16 [History] Sodium Bicarbonate 1,300 mg PO BID 12/23/16 [History] Tamsulosin [Flomax] 0.8 mg PO DAILY 12/23/16 [History] Metoprolol Succinate [Toprol XL] 50 mg PO BID #60 tab.er 01/01/17 [Rx] Vit C/E/Zn/Coppr/Lutein/Zeaxan [Preservision Areds 2 Softgel] 1 tab PO BID 08/14 [History] Calcitriol 0.25 mg PO DAILY 12/05/18 [History] Diltiazem [Dilacor XR] 380 mg PO DAILY 12/05/18 [History] Insulin Glargine,Hum.Rec.Anlog [Basaglar Kwikpen U-100] 14 units INJECT ASDIRECTED 12/05/18 [History] Insulin Glargine,Hum.Rec.Anlog [Basaglar Kwikpen U-100] 22 units INJECT ASDIRECTED 12/05/18 [History] amLODIPine [Norvasc] 5 mg PO DAILY 12/05/18 [History] Course - Vital Signs Last Recorded V/S: Last Vital Signs Temp 97.8 F 12/05/18 12:15 Pulse 104 H 12/05/18 12:15 Resp 16 12/05/18 12:15 BP 131/79 12/05/18 12:15 Pulse Ox 98 12/05/18 12:15 - Orders/Labs/Meds Orders: Active Orders 24 hr Category Date Time Status Admission Status [Patient Status] [ADT] Stat ADT 12/05/18 14:19 Ordered Assess Neurological Status [RC] ASDIRECTED Care 12/05/18 12:06 Active Cardiac Monitoring [RC] . DIRECTED Care 12/05/18 12:06 Active EKG Documentation Completion [RC] STAT Care 12/05/18 12:06 Active Height and Weight [RC] UPON Care 12/05/18 12:06 Active Initiate Acute Stroke Protocol [RC] STAT Care 12/05/18 12:06 Active NIH Stroke Scale [RC] ASDIRECTED Care 12/05/18 12:06 Active Nursing Bedside Swallow Screen [RC] ASDIRECTED Care 12/05/18 12:06 Active Oxygen Therapy [RC] ASDIRECTED Care 12/05/18 12:06 Active Stroke Education, General [RC] Click to Edit Care 12/05/18 12:06 Active Vital Signs [RC] Q15M Care 12/05/18 12:06 Active COMPREHENSIVE METABOLIC PN,CMP [CHEM] Stat Lab 12/05/18 14:04 Received CULTURE URINE [RM] Stat Lab 12/05/18 13:05 Received INR,PT,PROTHROMBIN TIME [COAG] Stat Lab 12/05/18 14:04 Received PTT,PARTIAL THROMBOPLSTIN TIME [COAG] Stat Lab 12/05/18 14:04 Received TROPONIN I [CHEM] Stat Lab 12/05/18 14:04 Received TSH [CHEM] Stat Lab 12/05/18 14:04 Received Sodium Chloride 0.9% [Normal Saline] 1,000 ml Med 12/05/18 13:28 Active IV STAT Sodium Chloride 0.9% [Saline Flush] Med 12/05/18 12:06 Active 10 ml FLUSH ASDIRECTED PRN Sodium Chloride 0.9% [Saline Flush] Med 12/05/18 12:06 Active 2.5 ml FLUSH ASDIRECTED PRN Peripheral IV Insertion Adult [OM.PC] Stat Oth 12/05/18 12:06 Ordered Peripheral IV Insertion Adult [OM.PC] Stat Oth 12/05/18 12:06 Ordered Medication Orders Sodium Chloride (Normal Saline) 1,000 mls @ 125 mls/hr IV STAT ONE Stop: 12/05/18 21:27 Last Admin: 12/05/18 13:44 Dose: 125 mls/hr Sodium Chloride (Saline Flush) 10 ml FLUSH ASDIRECTED PRN PRN Reason: Keep Vein Open Sodium Chloride (Saline Flush) 2.5 ml FLUSH ASDIRECTED PRN PRN Reason: Keep Vein Open Labs: Laboratory Tests 12/05/18 12/05/18 12/05/18 Range/Units 13:05 14:04 14:04 WBC 9.22 (4.0-11.0) K/uL RBC 4.02 L (4.50-5.90) M/uL Hgb 11.9 L (13.0-17.0) g/dL Hct 36.0 L (38.0-50.0) % MCV 89.6 (80.0-98.0) fL MCH 29.6 (27.0-32.0) pg MCHC 33.1 (31.0-37.0) g/dL RDW Std Deviation 47.8 (28.0-62.0) fl RDW Coeff of Davy 15 (11.0-15.0) % Plt Count 168 (150-400) K/uL MPV 10.80 (7.40-12.00) fL Neut % (Auto) 61.4 (48.0-80.0) % Lymph % (Auto) 16.9 (16.0-40.0) % Bucks % (Auto) 9.0 (0.0-15.0) % Eos % (Auto) 12.4 H (0.0-7.0) % Baso % (Auto) 0.3 (0.0-1.5) % Neut # (Auto) 5.7 (1.4-5.7) K/uL Lymph # (Auto) 1.6 (0.6-2.4) K/uL Bucks # (Auto) 0.8 (0.0-0.8) K/uL Eos # (Auto) 1.1 H (0.0-0.7) K/uL Baso # (Auto) 0.0 (0.0-0.1) K/uL Nucleated RBC % 0.0 /100WBC Nucleated RBCs # 0 K/uL Lactate 1.4 (0.20-2.00) mmol/L Urine Color YELLOW Urine Appearance SLT CLOUDY Urine pH 6.5 (5.0-8.0) Ur Specific [place] 1.020 (1.001-1.035) Urine Protein 100 H (NEGATIVE) mg/dL Urine Glucose (UA) NEGATIVE (NEGATIVE) mg/dL Urine Ketones NEGATIVE (NEGATIVE) mg/dL Urine Occult Blood SMALL H (NEGATIVE) Urine Nitrite NEGATIVE (NEGATIVE) Urine Bilirubin NEGATIVE (NEGATIVE) Urine Urobilinogen 0.2 (<2.0) EU/dL Ur Leukocyte Esterase LARGE H (NEGATIVE) Urine RBC 2-5 (0-2/HPF) Urine WBC 80-120 (0-5/HPF) Ur Epithelial Cells OCCASIONAL (NONE-FEW) Amorphous Sediment FEW (NEGATIVE) Urine Bacteria 3+ H (NEGATIVE) Urine Mucus FEW (NONE-MOD) Meds: Medications Generic Name Dose Route Start Last Admin Trade Name Freq PRN Reason Stop Dose Admin Sodium Chloride 1,000 mls @ 125 mls/hr 12/05/18 13:28 12/05/18 13:44 Normal Saline IV 12/05/18 21:27 125 mls/hr STAT ONE Administration Sodium Chloride 10 ml 12/05/18 12:06 Saline Flush FLUSH ASDIRECTED PRN Keep Vein Open Sodium Chloride 2.5 ml 12/05/18 12:06 Saline Flush FLUSH ASDIRECTED PRN Keep Vein Open Discontinued Medications Generic Name Dose Route Start Last Admin Trade Name Freq PRN Reason Stop Dose Admin Diphenhydramine HCl 25 mg 12/05/18 13:25 12/05/18 13:44 Benadryl IVPUSH 12/05/18 13:26 25 mg ONETIME ONE Administration Ceftriaxone Sodium/Dextrose 1 50 mls @ 100 mls/hr 12/05/18 13:28 12/05/18 13: 44 gm/ Premix IV 12/05/18 13:57 100 mls/hr ONETIME ONE Administration Departure - Departure Disposition: Home, Self-Care 01 Clinical Impression: UTI (urinary tract infection) Qualifiers: Urinary tract infection type: acute cystitis Hematuria presence: without hematuria Qualified Code(s): N30.00 - Acute cystitis without hematuria Altered mental status, unspecified Qualifiers: Altered mental status type: unspecified Qualified Code(s): R41.82 - Altered mental status, unspecified - Discharge Information Referrals: PCP,Unknown [Primary Care Provider] - Forms: ED Department Discharge - My Orders Last 24 Hours: My Active Orders 12/05/18 12:06 Assess Neurological Status [RC] ASDIRECTED Cardiac Monitoring [RC] . DIRECTED EKG Documentation Completion [RC] STAT Height and Weight [RC] UPON Initiate Acute Stroke Protocol [RC] STAT NIH Stroke Scale [RC] ASDIRECTED Nursing Bedside Swallow Screen [RC] ASDIRECTED Oxygen Therapy [RC] ASDIRECTED Stroke Education, General [RC] Click to Edit Vital Signs [RC] Q15M Sodium Chloride 0.9% [Saline Flush] 10 ml FLUSH ASDIRECTED PRN Sodium Chloride 0.9% [Saline Flush] 2.5 ml FLUSH ASDIRECTED PRN Peripheral IV Insertion Adult [OM.PC] Stat Peripheral IV Insertion Adult [OM.PC] Stat 12/05/18 13:28 Sodium Chloride 0.9% [Normal Saline] 1,000 ml IV STAT 12/05/18 14:04 COMPREHENSIVE METABOLIC PN,CMP [CHEM] Stat INR,PT,PROTHROMBIN TIME [COAG] Stat PTT,PARTIAL THROMBOPLSTIN TIME [COAG] Stat TROPONIN I [CHEM] Stat TSH [CHEM] Stat 12/05/18 14:19 Admission Status [Patient Status] [ADT] Stat - Assessment/Plan Last 24 Hours: My Active Orders 12/05/18 12:06 Assess Neurological Status [RC] ASDIRECTED Cardiac Monitoring [RC] . DIRECTED EKG Documentation Completion [RC] STAT Height and Weight [RC] UPON Initiate Acute Stroke Protocol [RC] STAT NIH Stroke Scale [RC] ASDIRECTED Nursing Bedside Swallow Screen [RC] ASDIRECTED Oxygen Therapy [RC] ASDIRECTED Stroke Education, General [RC] Click to Edit Vital Signs [RC] Q15M Sodium Chloride 0.9% [Saline Flush] 10 ml FLUSH ASDIRECTED PRN Sodium Chloride 0.9% [Saline Flush] 2.5 ml FLUSH ASDIRECTED PRN Peripheral IV Insertion Adult [OM.PC] Stat Peripheral IV Insertion Adult [OM.PC] Stat 12/05/18 13:28 Sodium Chloride 0.9% [Normal Saline] 1,000 ml IV STAT 12/05/18 14:04 COMPREHENSIVE METABOLIC PN,CMP [CHEM] Stat INR,PT,PROTHROMBIN TIME [COAG] Stat PTT,PARTIAL THROMBOPLSTIN TIME [COAG] Stat TROPONIN I [CHEM] Stat TSH [CHEM] Stat 12/05/18 14:19 Admission Status [Patient Status] [ADT] Stat <Tiffany Beasley E - Last Filed: 12/05/18 14:25> ED HPI GENERAL MEDICAL PROBLEM - History of Present Illness INITIAL COMMENTS - FREE TEXT/NARRATIVE: HISTORY AND PHYSICAL: Stroke code was called upon presentation. Dr. Singletary was involved in this case. History of present illness: Patient is an 88-year-old male who presents to the ED today and brought in by his with concerns of altered mental status. She states that about 8 this morning he was per his usual and talking, she states she checked a blood sugar which was mid 80s. He proceeded to drink a half a cup of Coke and took a nap. When he woke up seemed to be altered. She did not notice any one-sided weakness , facial droop or slurred speech. She states that he does not have an underlying dementia, and he is not usually altered. He states that last night he did complain of left arm pain. Patient does have one false eye. The states he has had no recent falls, traumas or injuries. Patient's states that he does have a history of A. fib, one kidney, type 2 diabetes. Primary care provider is Dr. Burr at [facility] Review of systems: As per history of present illness and below otherwise all systems reviewed and negative. Past medical history: As per history of present illness and as reviewed below otherwise noncontributory. Surgical history: As per history of present illness and as reviewed below otherwise noncontributory. Social history: See social history for further information Family history: As per history of present illness and as reviewed below otherwise noncontributory. Physical exam: General: Patient is altered upon arrival and is not able to speak, combative. Patient does stand and is able to walk with standby assistance to the bed from the wheelchair. He is not verbally responding although he does make noises. He is unwilling to follow commands although he does move all his extremities. HEENT: Atraumatic, normocephalic, pupils equal and reactive bilaterally, negative for conjunctival pallor or scleral icterus, mucous membranes moist, TMs normal bilaterally, throat clear, neck supple, nontender, trachea midline. No drooling or trismus noted. No meningeal signs. No hot potato voice noted. Lungs: Clear to auscultation, breath sounds equal bilaterally, chest nontender. Heart: S1S2, regular rate and rhythm without overt murmur Abdomen: Soft, nondistended, nontender. Negative for masses or hepatosplenomegaly. Negative for costovertebral tenderness. Pelvis: Stable nontender. Genitourinary: Patient is wearing and attends, is saturated in urine. Rectal: Deferred. Skin: Intact, warm, dry. No lesions or rashes noted. Extremities: Moves all extremities per self without difficulty or deficits, +1 edema bilaterally LE, strong pedal pulses, negative for cords or calf pain. Neurovascular unremarkable. Neuro: Patient was altered, unable to speak and combative. Unable to assess cranial nerves due to uncooperation. Patient was able to transfer to bed with assistance but unable to follow commands. Notes: Fingerstick blood sugar was drawn upon presentation which was 170s. Stroke code initiated. Initial GCS: 10, uncooperative to fully assess his NIH score. Patient does follow of window for TPA due to timeframe, comorbidities of type 2 diabetes and age. Upon patient returned from CT Dr. Singletary did go in and evaluate this patient and seems to be improving. Patient is now verbally responding to questions appropriately. He does answer questions but is uncooperative with following commands to do our NIH stroke scale. He is moving all extremities and does briefly perform the activities as directed but then goes back to resting with his eyes closed. GCS: 14. NIH: 2, he does not have any deficits, facial droop or slurred speech. He is uncooperative with performing the activities as he stated earlier but is able to move all extremities per self. It is difficult to assess if there is any motor drift but he does not have any weakness or neglect. 1228: Dr Liang called with stat head CT reading, no acute findings. Patient continues to follow commands and answer questions appropriately. His vital signs are stable. He has been at the bedside drinking small sips of fluids without any difficulty. Dr. Gallardo was consulted on this patient. He will accept this patient for observation admission with telemetry. Patient and family are aware and agreeable to plan of care. Diagnostics: CBC, CMP, TSH, troponin, PT/INR, bedside glucose, EKG, one view chest, head CT, UA, UC, Lactic Acid Therapeutics: Saline lock, Rocephin, IV fluids Impression: Altered Mental Status UTI Plan: Observation admission with Telemetry Definitive disposition and diagnosis as appropriate pending reevaluation and review of above. 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 hx nephrectomy for kidney cancer Musculoskeletal History: Reports: Osteoarthritis Neurological History: Reports: None Endocrine/Metabolic History: Reports: Diabetes, Type II Hematologic History: Reports: Anemia, Blood Transfusion(s) Other Hematologic History: 3 units of blood 08/02/17 Oncologic (Cancer) History: Reports: Bladder, Other (See Below) Other Oncologic History: bladder and kidney CA - Infectious Disease History Infectious Disease History: Reports: Chicken Pox, Measles, Mumps - Past Surgical History Head Surgeries/Procedures: Social & Family History - Family History Family Medical History: Noncontributory HEENT: Reports: None Cardiac: Reports: None Respiratory: Reports: None GI: Reports: None : Reports: None OBGYN: Reports: None Musculoskeletal: Reports: None Neurological: Reports: None Psychiatric: Reports: None Endocrine/Metabolic: Reports: None Hematologic: Reports: None Immunologic: Reports: None Dermatologic: Reports: None Oncologic: Reports: None - Caffeine Use Caffeine Use: Reports: Coffee, Tea Other Caffeine Use: 1-2 cups daily Caffeine Use Comment: 2cups/day ED ROS GENERAL - Review of Systems Review Of Systems: ROS reveals no pertinent complaints other than HPI. ED EXAM, NEURO - Physical Exam Exam: See Below (See dictation) Course - Vital Signs Last Recorded V/S: Last Vital Signs Temp 97.8 F 12/05/18 12:15 Pulse 104 H 12/05/18 12:15 Resp 16 12/05/18 12:15 BP 131/79 12/05/18 12:15 Pulse Ox 98 12/05/18 12:15 - Orders/Labs/Meds Labs: Laboratory Tests 12/05/18 12/05/18 12/05/18 Range/Units 13:05 14:04 14:04 WBC 9.22 (4.0-11.0) K/uL RBC 4.02 L (4.50-5.90) M/uL Hgb 11.9 L (13.0-17.0) g/dL Hct 36.0 L (38.0-50.0) % MCV 89.6 (80.0-98.0) fL MCH 29.6 (27.0-32.0) pg MCHC 33.1 (31.0-37.0) g/dL RDW Std Deviation 47.8 (28.0-62.0) fl RDW Coeff of Davy 15 (11.0-15.0) % Plt Count 168 (150-400) K/uL MPV 10.80 (7.40-12.00) fL Neut % (Auto) 61.4 (48.0-80.0) % Lymph % (Auto) 16.9 (16.0-40.0) % Bucks % (Auto) 9.0 (0.0-15.0) % Eos % (Auto) 12.4 H (0.0-7.0) % Baso % (Auto) 0.3 (0.0-1.5) % Neut # (Auto) 5.7 (1.4-5.7) K/uL Lymph # (Auto) 1.6 (0.6-2.4) K/uL Bucks # (Auto) 0.8 (0.0-0.8) K/uL Eos # (Auto) 1.1 H (0.0-0.7) K/uL Baso # (Auto) 0.0 (0.0-0.1) K/uL Nucleated RBC % 0.0 /100WBC Nucleated RBCs # 0 K/uL Lactate 1.4 (0.20-2.00) mmol/L Urine Color YELLOW Urine Appearance SLT CLOUDY Urine pH 6.5 (5.0-8.0) Ur Specific [place] 1.020 (1.001-1.035) Urine Protein 100 H (NEGATIVE) mg/dL Urine Glucose (UA) NEGATIVE (NEGATIVE) mg/dL Urine Ketones NEGATIVE (NEGATIVE) mg/dL Urine Occult Blood SMALL H (NEGATIVE) Urine Nitrite NEGATIVE (NEGATIVE) Urine Bilirubin NEGATIVE (NEGATIVE) Urine Urobilinogen 0.2 (<2.0) EU/dL Ur Leukocyte Esterase LARGE H (NEGATIVE) Urine RBC 2-5 (0-2/HPF) Urine WBC 80-120 (0-5/HPF) Ur Epithelial Cells OCCASIONAL (NONE-FEW) Amorphous Sediment FEW (NEGATIVE) Urine Bacteria 3+ H (NEGATIVE) Urine Mucus FEW (NONE-MOD) Departure - Departure Time of Disposition: 14:23
--- NOTE | 2018-12-05 12:39 | CT ---
INDICATION: Stroke. TECHNIQUE: Head CT without contrast. COMPARISON: None. FINDINGS: CSF spaces: Within normal limits for age. Brain parenchyma: There are nonspecific low attenuation white matter changes consistent with chronic microvascular disease. No sign of mass, hemorrhage, or midline shift. Skull base and calvarium: Mucosal thickening is present in the right maxillary sinus. The visualized orbits are grossly unremarkable. No skull fractures. IMPRESSION: No sign of acute CVA, hemorrhage or mass effect. There is atrophy and chronic microvascular disease. Please note that all CT scans at this facility use dose modulation, iterative reconstruction, and/or weight-based dosing when appropriate to reduce radiation dose to as low as reasonably achievable. Dictated by Dariel Wesley MD @ Dec 05 2018 12:32PM Signed by Dr. Dariel Wesley @ Dec 05 2018 12:37PM
--- NOTE | 2018-12-05 13:23 | CR ---
EXAMINATION: Portable chest radiograph. HISTORY: Shortness of breath. FINDINGS: The trachea is midline. The heart is borderline in size. The cardiomediastinal silhouette is within normal limits. No pulmonary infiltrates, effusions or pneumothorax. There is a left-sided pacemaker noted. Osseous structures appear mildly osteopenic. IMPRESSION: No acute cardiopulmonary process.
[2018-12-05] MEDS ORDERED: diphenhydrAMINE 50 MG/ML SDV IVPUSH ONE (13:25)
[2018-12-05] MEDS ORDERED: Sodium Chloride 0.9% 1,000 ML IV ONE (13:28)
[2018-12-05] MEDS ORDERED: cefTRIAXone 1 GM in Premix Bag 1 BAG IV ONE (13:28)
[2018-12-05 14:52] LABS: CHLORIDE,CL 101 mmol/L (98-107); SODIUM,NA 136 mmol/L (136-148)
--- NOTE | 2018-12-05 14:59 | PCM.HP ---
<Ge Fontenot - Last Filed: 12/05/18 15:22> H&P History of Present Illness - General Date of Service: 12/05/18 Admit Problem/Dx: Admission Diagnosis/Problem Admission Diagnosis/Problem Urinary tract infection Source of Information: Patient, Family History Limitations: Reports: No Limitations - History of Present Illness Initial Comments - Free Text/Narative: 88M hx of unspecified dementia, A. Fib, T2DM that presented to the ER with his after she noticed him to be nonverbal, and showing signs of confusion this morning after eating breakfast at approximately 8am. also described the patient to have an episode of slurred speech. These symptoms resolved shortly after presenting to the ER. Patient was worked up in the ER found to have a UTI and acute on chronic kidney injury. CT Head was negative for hemorrhage. He was out of the TPA window. - Related Data Allergies/Adverse Reactions: Allergies Allergy/AdvReac Type Severity Reaction Status Date / Time acetaminophen Allergy Headache Verified 12/05/18 12:10 [From Excedrin Back and Body] calcium carbonate Allergy Headache Verified 12/05/18 12:10 [From Excedrin Back and Body] moexipril [From Univasc] Allergy Cough Verified 12/05/18 12:10 oseltamivir [From Tamiflu] Allergy Hallucinati Verified 12/05/18 12:10 ons terazosin [From Hytrin] Allergy Rash Verified 12/05/18 12:10 Home Medications: Home Meds Dutasteride 0.5 mg PO BID 12/23/16 [History] Folic Acid 1 mg PO DAILY 12/23/16 [History] Sodium Bicarbonate 1,300 mg PO BID 12/23/16 [History] Tamsulosin [Flomax] 0.8 mg PO DAILY 12/23/16 [History] Metoprolol Succinate [Toprol XL] 50 mg PO BID #60 tab.er 01/01/17 [Rx] Vit C/E/Zn/Coppr/Lutein/Zeaxan [Preservision Areds 2 Softgel] 1 tab PO BID 08/14 [History] Calcitriol 0.25 mg PO DAILY 12/05/18 [History] Diltiazem [Dilacor XR] 380 mg PO DAILY 12/05/18 [History] Insulin Glargine,Hum.Rec.Anlog [Basaglar Kwikpen U-100] 14 units INJECT ASDIRECTED 12/05/18 [History] Insulin Glargine,Hum.Rec.Anlog [Basaglar Kwikpen U-100] 22 units INJECT ASDIRECTED 12/05/18 [History] amLODIPine [Norvasc] 5 mg PO DAILY 12/05/18 [History] Past Medical History - Past Health History Medical/Surgical History: Denies Medical/Surgical History HEENT History: Reports: Impaired Vision, Other (See Below) 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 hx nephrectomy for kidney cancer Musculoskeletal History: Reports: Osteoarthritis Neurological History: Reports: None Psychiatric History: Reports: None Endocrine/Metabolic History: Reports: Diabetes, Type II Hematologic History: Reports: Anemia, Blood Transfusion(s) Other Hematologic History: 3 units of blood 08/02/17 Immunologic History: Reports: None Oncologic (Cancer) History: Reports: Bladder, Other (See Below) Other Oncologic History: bladder and kidney CA Dermatologic History: Reports: None - Infectious Disease History Infectious Disease History: Reports: Chicken Pox, Measles, Mumps - Past Surgical History Head Surgeries/Procedures: Social & Family History - Family History Family Medical History: Noncontributory HEENT: Reports: None Cardiac: Reports: None Respiratory: Reports: None GI: Reports: None : Reports: None OBGYN: Reports: None Musculoskeletal: Reports: None Neurological: Reports: None Psychiatric: Reports: None Endocrine/Metabolic: Reports: None Hematologic: Reports: None Immunologic: Reports: None Dermatologic: Reports: None Oncologic: Reports: None - Tobacco Use Smoking Status *Q: Former Smoker Used Tobacco, but Quit: Yes Month/Year Tobacco Last Used: 18 - Caffeine Use Caffeine Use: Reports: Coffee, Tea Other Caffeine Use: 1-2 cups daily Caffeine Use Comment: 2cups/day - Recreational Drug Use Recreational Drug Use: No H&P Review of Systems - Review of Systems: Review Of Systems: See Below General: Reports: Chills HEENT: Reports: No Symptoms Pulmonary: Reports: No Symptoms Cardiovascular: Reports: No Symptoms Gastrointestinal: Reports: No Symptoms, Other (hx of chronic urinary incontinence) Musculoskeletal: Reports: No Symptoms Skin: Reports: No Symptoms Psychiatric: Reports: No Symptoms Neurological: Denies: Confusion, Dizziness, Headache, Numbness, Paresthesia Hematologic/Lymphatic: Reports: No Symptoms Immunologic: Reports: No Symptoms Exam - Exam Exam: See Below - Vital Signs Vital Signs: Last Vital Signs Temp 36.6 C 12/05/18 12:15 Pulse 92 12/05/18 13:30 Resp 18 12/05/18 13:30 BP 151/71 H 12/05/18 13:30 Pulse Ox 100 12/05/18 13:30 Weight: 72.8 kg - Exam General: Alert, Oriented, Cooperative. No: Mild Distress HEENT: PERRLA, Hearing Intact, Mucosa Moist & [place], Nares Patent, Normal Nasal Septum, Posterior Pharynx Clear, Conjunctiva Clear, EOMI, EACs Clear, TMs Clear Neck: Supple, Trachea Midline, 2 Lungs: Clear to Auscultation, Normal Respiratory Effort Cardiovascular: Regular Rate, Regular Rhythm GI/Abdominal Exam: Normal Bowel Sounds, Soft, Non-Tender, No Organomegaly, No Distention, No Abnormal Bruit, No Mass, Pelvis Stable Back Exam: Normal Inspection, Full Range of Motion. No: CVA Tenderness (L), CVA Tenderness (R) Extremities: Normal Inspection, Normal Range of Motion, Non-Tender, No Pedal Edema, Normal Capillary Refill Skin: Warm, Dry, Intact Neurological: Cranial Nerves Intact, Reflexes Equal Bilateral Neuro Extensive - Mental Status: Alert, Oriented x3, Normal Mood/Affect, Other ( hx of dementia, tremor.) DTR: 2+: Achilles (L), Achilles (R) Psychiatric: Alert, Normal Affect, Normal Mood - Patient Data Lab Results Last 24 hrs: Laboratory Results - last 24 hr 12/05/18 12/05/18 12/05/18 Range/Units 13:05 14:04 14:04 WBC 9.22 (4.0-11.0) K/uL RBC 4.02 L (4.50-5.90) M/uL Hgb 11.9 L (13.0-17.0) g/dL Hct 36.0 L (38.0-50.0) % MCV 89.6 (80.0-98.0) fL MCH 29.6 (27.0-32.0) pg MCHC 33.1 (31.0-37.0) g/dL RDW Std Deviation 47.8 (28.0-62.0) fl RDW Coeff of Davy 15 (11.0-15.0) % Plt Count 168 (150-400) K/uL MPV 10.80 (7.40-12.00) fL Neut % (Auto) 61.4 (48.0-80.0) % Lymph % (Auto) 16.9 (16.0-40.0) % [place] % (Auto) 9.0 (0.0-15.0) % Eos % (Auto) 12.4 H (0.0-7.0) % Baso % (Auto) 0.3 (0.0-1.5) % Neut # (Auto) 5.7 (1.4-5.7) K/uL Lymph # (Auto) 1.6 (0.6-2.4) K/uL [place] # (Auto) 0.8 (0.0-0.8) K/uL Eos # (Auto) 1.1 H (0.0-0.7) K/uL Baso # (Auto) 0.0 (0.0-0.1) K/uL Nucleated RBC % 0.0 /100WBC Nucleated RBCs # 0 K/uL INR 1.12 APTT 30.4 (18.6-31.3) SEC Lactate (0.20-2.00) mmol/L Sodium (136-148) mmol/L Potassium (3.5-5.1) mmol/L Chloride (98-107) mmol/L Carbon Dioxide (21.0-32.0) mmol/L BUN (7.0-18.0) mg/dL Creatinine (0.8-1.3) mg/dL Est Cr Clr Drug Dosing Estimated GFR (MDRD) ml/min Glucose (74-106) mg/dL Calcium (8.5-10.1) mg/dL Total Bilirubin (0.2-1.0) mg/dL AST (15-37) IU/L ALT (14-63) IU/L Alkaline Phosphatase (46-116) U/L Troponin I (0.000-0.056) ng/mL Total Protein (6.4-8.2) g/dL Albumin (3.4-5.0) g/dL Globulin (2.6-4.0) g/dL Albumin/Globulin Ratio (0.9-1.6) TSH 3rd Generation (0.36-3.74) uIU/mL Urine Color YELLOW Urine Appearance SLT CLOUDY Urine pH 6.5 (5.0-8.0) Ur Specific [place] 1.020 (1.001-1.035) Urine Protein 100 H (NEGATIVE) mg/dL Urine Glucose (UA) NEGATIVE (NEGATIVE) mg/dL Urine Ketones NEGATIVE (NEGATIVE) mg/dL Urine Occult Blood SMALL H (NEGATIVE) Urine Nitrite NEGATIVE (NEGATIVE) Urine Bilirubin NEGATIVE (NEGATIVE) Urine Urobilinogen 0.2 (<2.0) EU/dL Ur Leukocyte Esterase LARGE H (NEGATIVE) Urine RBC 2-5 (0-2/HPF) Urine WBC 80-120 (0-5/HPF) Ur Epithelial Cells OCCASIONAL (NONE-FEW) Amorphous Sediment FEW (NEGATIVE) Urine Bacteria 3+ H (NEGATIVE) Urine Mucus FEW (NONE-MOD) 12/05/18 12/05/18 Range/Units 14:04 14:04 WBC (4.0-11.0) K/uL RBC (4.50-5.90) M/uL Hgb (13.0-17.0) g/dL Hct (38.0-50.0) % MCV (80.0-98.0) fL MCH (27.0-32.0) pg MCHC (31.0-37.0) g/dL RDW Std Deviation (28.0-62.0) fl RDW Coeff of Davy (11.0-15.0) % Plt Count (150-400) K/uL MPV (7.40-12.00) fL Neut % (Auto) (48.0-80.0) % Lymph % (Auto) (16.0-40.0) % [place] % (Auto) (0.0-15.0) % Eos % (Auto) (0.0-7.0) % Baso % (Auto) (0.0-1.5) % Neut # (Auto) (1.4-5.7) K/uL Lymph # (Auto) (0.6-2.4) K/uL [place] # (Auto) (0.0-0.8) K/uL Eos # (Auto) (0.0-0.7) K/uL Baso # (Auto) (0.0-0.1) K/uL Nucleated RBC % /100WBC Nucleated RBCs # K/uL INR APTT (18.6-31.3) SEC Lactate 1.4 (0.20-2.00) mmol/L Sodium 136 (136-148) mmol/L Potassium 4.2 (3.5-5.1) mmol/L Chloride 101 (98-107) mmol/L Carbon Dioxide 18.6 L (21.0-32.0) mmol/L BUN 59 H (7.0-18.0) mg/dL Creatinine 4.0 H (0.8-1.3) mg/dL Est Cr Clr Drug Dosing TNP Estimated GFR (MDRD) 14.2 ml/min Glucose 133 H (74-106) mg/dL Calcium 10.4 H (8.5-10.1) mg/dL Total Bilirubin 0.4 (0.2-1.0) mg/dL AST 16 (15-37) IU/L ALT 15 (14-63) IU/L Alkaline Phosphatase 85 (46-116) U/L Troponin I 0.052 (0.000-0.056) ng/mL Total Protein 7.6 (6.4-8.2) g/dL Albumin 3.3 L (3.4-5.0) g/dL Globulin 4.3 H (2.6-4.0) g/dL Albumin/Globulin Ratio 0.8 L (0.9-1.6) TSH 3rd Generation 0.54 (0.36-3.74) uIU/mL Urine Color Urine Appearance Urine pH (5.0-8.0) Ur Specific [place] (1.001-1.035) Urine Protein (NEGATIVE) mg/dL Urine Glucose (UA) (NEGATIVE) mg/dL Urine Ketones (NEGATIVE) mg/dL Urine Occult Blood (NEGATIVE) Urine Nitrite (NEGATIVE) Urine Bilirubin (NEGATIVE) Urine Urobilinogen (<2.0) EU/dL Ur Leukocyte Esterase (NEGATIVE) Urine RBC (0-2/HPF) Urine WBC (0-5/HPF) Ur Epithelial Cells (NONE-FEW) Amorphous Sediment (NEGATIVE) Urine Bacteria (NEGATIVE) Urine Mucus (NONE-MOD) Result Diagrams: 12/05/18 14:04 12/05/18 14:04 Problem List Initiated/Reviewed/Updated: Yes Orders Last 24hrs: Active Orders 24 hr Category Date Time Status Admission Status [Patient Status] [ADT] Stat ADT 12/05/18 14:19 Active Assess Neurological Status [RC] ASDIRECTED Care 12/05/18 12:06 Active Cardiac Monitoring [RC] . DIRECTED Care 12/05/18 12:06 Active EKG Documentation Completion [RC] STAT Care 12/05/18 12:06 Active Height and Weight [RC] UPON Care 12/05/18 12:06 Active Initiate Acute Stroke Protocol [RC] STAT Care 12/05/18 12:06 Active NIH Stroke Scale [RC] ASDIRECTED Care 12/05/18 12:06 Active Nursing Bedside Swallow Screen [RC] ASDIRECTED Care 12/05/18 12:06 Active Oxygen Therapy [RC] ASDIRECTED Care 12/05/18 12:06 Active Stroke Education, General [RC] Click to Edit Care 12/05/18 12:06 Active Vital Signs [RC] Q15M Care 12/05/18 12:06 Active CULTURE URINE [] Stat Lab 12/05/18 13:05 Received Sodium Chloride 0.9% [Normal Saline] 1,000 ml Med 12/05/18 13:28 Active IV STAT Sodium Chloride 0.9% [Saline Flush] Med 12/05/18 12:06 Active 10 ml FLUSH ASDIRECTED PRN Sodium Chloride 0.9% [Saline Flush] Med 12/05/18 12:06 Active 2.5 ml FLUSH ASDIRECTED PRN Peripheral IV Insertion Adult [OM.PC] Stat Oth 12/05/18 12:06 Ordered Peripheral IV Insertion Adult [OM.PC] Stat Oth 12/05/18 12:06 Ordered Medication Orders Sodium Chloride (Normal Saline) 1,000 mls @ 125 mls/hr IV STAT ONE Stop: 12/05/18 21:27 Last Admin: 12/05/18 13:44 Dose: 125 mls/hr Sodium Chloride (Saline Flush) 10 ml FLUSH ASDIRECTED PRN PRN Reason: Keep Vein Open Sodium Chloride (Saline Flush) 2.5 ml FLUSH ASDIRECTED PRN PRN Reason: Keep Vein Open Assessment/Plan Comment:: Assessment: #1. UTI #2. Altered mental status #3. MINDA #4. History of A. Fibrillation, T2DM, unspecified dementia, urinary incontinence , CKD Plan: #1. Admit for observation. Cardiac telemetry. DNR/DNI. SC Heparin for DVT Prophylaxis #2. Repeat BMP in 2 hours from the last draw. This patient has a significant elevation in creatinine at 4.0 and with an eGFR of 14. With that given, I'd like to ensure that the IV hydration along with antibiotics he's receiving has him going in the right direction from a renal standpoint. Otherwise, this patient may be a potential transfer for dialysis/nephrology consult. #3. 1g IV Rocephin q24h. Follow on urine culture #4. q2h neuro checks #5. low dose insulin sliding scale #6. Full dose aspirin x1. ER presentation appears to be possible TIA vs stroke but given my evaluation and lab work I'm thinking he was confused because of his UTI and possibly uremia. He has no significant motor findings on exam. #7. CBC, CMP tomorrow AM #8. PT eval #9. Bedside swallow screen - then start on renal diet. NPO until swallow screen completed. <Jethro Gallardo - Last Filed: 12/05/18 16:35> H&P History of Present Illness - General Admit Problem/Dx: Admission Diagnosis/Problem Admission Diagnosis/Problem Urinary tract infection I have examined the patient independently of medical reviewer. I have discussed the case with the resident. I agree with the assessment and plan of care as outlined for this patient. Please see orders. Likely uncomplicated UTI vice stroke. Exam - Vital Signs Vital Signs: Last Vital Signs Temp 36.6 C 12/05/18 12:15 Pulse 63 12/05/18 15:05 Resp 18 12/05/18 15:05 BP 158/77 H 12/05/18 15:05 Pulse Ox 96 12/05/18 15:05 - Patient Data Lab Results Last 24 hrs: Laboratory Results - last 24 hr 12/05/18 12/05/18 12/05/18 Range/Units 13:05 13:05 14:04 WBC 9.22 (4.0-11.0) K/uL RBC 4.02 L (4.50-5.90) M/uL Hgb 11.9 L (13.0-17.0) g/dL Hct 36.0 L (38.0-50.0) % MCV 89.6 (80.0-98.0) fL MCH 29.6 (27.0-32.0) pg MCHC 33.1 (31.0-37.0) g/dL RDW Std Deviation 47.8 (28.0-62.0) fl RDW Coeff of Davy 15 (11.0-15.0) % Plt Count 168 (150-400) K/uL MPV 10.80 (7.40-12.00) fL Neut % (Auto) 61.4 (48.0-80.0) % Lymph % (Auto) 16.9 (16.0-40.0) % [place] % (Auto) 9.0 (0.0-15.0) % Eos % (Auto) 12.4 H (0.0-7.0) % Baso % (Auto) 0.3 (0.0-1.5) % Neut # (Auto) 5.7 (1.4-5.7) K/uL Lymph # (Auto) 1.6 (0.6-2.4) K/uL [place] # (Auto) 0.8 (0.0-0.8) K/uL Eos # (Auto) 1.1 H (0.0-0.7) K/uL Baso # (Auto) 0.0 (0.0-0.1) K/uL Nucleated RBC % 0.0 /100WBC Nucleated RBCs # 0 K/uL INR APTT (18.6-31.3) SEC Lactate (0.20-2.00) mmol/L Sodium (136-148) mmol/L Potassium (3.5-5.1) mmol/L Chloride (98-107) mmol/L Carbon Dioxide (21.0-32.0) mmol/L BUN (7.0-18.0) mg/dL Creatinine (0.8-1.3) mg/dL Est Cr Clr Drug Dosing Estimated GFR (MDRD) ml/min Glucose (74-106) mg/dL Calcium (8.5-10.1) mg/dL Total Bilirubin (0.2-1.0) mg/dL AST (15-37) IU/L ALT (14-63) IU/L Alkaline Phosphatase (46-116) U/L Troponin I (0.000-0.056) ng/mL Total Protein (6.4-8.2) g/dL Albumin (3.4-5.0) g/dL Globulin (2.6-4.0) g/dL Albumin/Globulin Ratio (0.9-1.6) TSH 3rd Generation (0.36-3.74) uIU/mL Urine Color YELLOW Urine Appearance SLT CLOUDY Urine pH 6.5 (5.0-8.0) Ur Specific [place] 1.020 (1.001-1.035) Urine Protein 100 H (NEGATIVE) mg/dL Urine Glucose (UA) NEGATIVE (NEGATIVE) mg/dL Urine Ketones NEGATIVE (NEGATIVE) mg/dL Urine Occult Blood SMALL H (NEGATIVE) Urine Nitrite NEGATIVE (NEGATIVE) Urine Bilirubin NEGATIVE (NEGATIVE) Urine Urobilinogen 0.2 (<2.0) EU/dL Ur Leukocyte Esterase LARGE H (NEGATIVE) Urine RBC 2-5 (0-2/HPF) Urine WBC 80-120 (0-5/HPF) Ur Epithelial Cells OCCASIONAL (NONE-FEW) Amorphous Sediment FEW (NEGATIVE) Urine Bacteria 3+ H (NEGATIVE) Urine Mucus FEW (NONE-MOD) Ur Random Creatinine 48.9 mg/dL Ur Random Sodium 85.0 (40.0-220.0) mmol/L 12/05/18 12/05/18 12/05/18 Range/Units 14:04 14:04 14:04 WBC (4.0-11.0) K/uL RBC (4.50-5.90) M/uL Hgb (13.0-17.0) g/dL Hct (38.0-50.0) % MCV (80.0-98.0) fL MCH (27.0-32.0) pg MCHC (31.0-37.0) g/dL RDW Std Deviation (28.0-62.0) fl RDW Coeff of Davy (11.0-15.0) % Plt Count (150-400) K/uL MPV (7.40-12.00) fL Neut % (Auto) (48.0-80.0) % Lymph % (Auto) (16.0-40.0) % [place] % (Auto) (0.0-15.0) % Eos % (Auto) (0.0-7.0) % Baso % (Auto) (0.0-1.5) % Neut # (Auto) (1.4-5.7) K/uL Lymph # (Auto) (0.6-2.4) K/uL [place] # (Auto) (0.0-0.8) K/uL Eos # (Auto) (0.0-0.7) K/uL Baso # (Auto) (0.0-0.1) K/uL Nucleated RBC % /100WBC Nucleated RBCs # K/uL INR 1.12 APTT 30.4 (18.6-31.3) SEC Lactate 1.4 (0.20-2.00) mmol/L Sodium 136 (136-148) mmol/L Potassium 4.2 (3.5-5.1) mmol/L Chloride 101 (98-107) mmol/L Carbon Dioxide 18.6 L (21.0-32.0) mmol/L BUN 59 H (7.0-18.0) mg/dL Creatinine 4.0 H (0.8-1.3) mg/dL Est Cr Clr Drug Dosing TNP Estimated GFR (MDRD) 14.2 ml/min Glucose 133 H (74-106) mg/dL Calcium 10.4 H (8.5-10.1) mg/dL Total Bilirubin 0.4 (0.2-1.0) mg/dL AST 16 (15-37) IU/L ALT 15 (14-63) IU/L Alkaline Phosphatase 85 (46-116) U/L Troponin I 0.052 (0.000-0.056) ng/mL Total Protein 7.6 (6.4-8.2) g/dL Albumin 3.3 L (3.4-5.0) g/dL Globulin 4.3 H (2.6-4.0) g/dL Albumin/Globulin Ratio 0.8 L (0.9-1.6) TSH 3rd Generation 0.54 (0.36-3.74) uIU/mL Urine Color Urine Appearance Urine pH (5.0-8.0) Ur Specific [place] (1.001-1.035) Urine Protein (NEGATIVE) mg/dL Urine Glucose (UA) (NEGATIVE) mg/dL Urine Ketones (NEGATIVE) mg/dL Urine Occult Blood (NEGATIVE) Urine Nitrite (NEGATIVE) Urine Bilirubin (NEGATIVE) Urine Urobilinogen (<2.0) EU/dL Ur Leukocyte Esterase (NEGATIVE) Urine RBC (0-2/HPF) Urine WBC (0-5/HPF) Ur Epithelial Cells (NONE-FEW) Amorphous Sediment (NEGATIVE) Urine Bacteria (NEGATIVE) Urine Mucus (NONE-MOD) Ur Random Creatinine mg/dL Ur Random Sodium (40.0-220.0) mmol/L Result Diagrams: 12/05/18 14:04 12/05/18 14:04 Orders Last 24hrs: Active Orders 24 hr Category Date Time Status Admission Status [Patient Status] [ADT] Stat ADT 12/05/18 14:19 Active Antiembolic Devices [RC] PER UNIT ROUTINE Care 12/05/18 15:07 Active Assess Neurological Status [RC] ASDIRECTED Care 12/05/18 12:06 Active Cardiac Monitoring [RC] . DIRECTED Care 12/05/18 15:10 Active Cardiac Monitoring [RC] Q8H Care 12/05/18 12:06 Active EKG Documentation Completion [RC] STAT Care 12/05/18 12:06 Active Height and Weight [RC] UPON Care 12/05/18 12:06 Active NIH Stroke Scale [RC] ASDIRECTED Care 12/05/18 12:06 Active Neuro Check [RC] Q4H Care 12/05/18 15:10 Active Nursing Bedside Swallow Screen [RC] ASDIRECTED Care 12/05/18 12:06 Active Oxygen Therapy [RC] ASDIRECTED Care 12/05/18 12:06 Active Oxygen Therapy [RC] PRN Care 12/05/18 15:06 Active Stroke Education, General [RC] Click to Edit Care 12/05/18 12:06 Active Up With Assistance [RC] ASDIRECTED Care 12/05/18 15:05 Active VTE/DVT Education [RC] PER UNIT ROUTINE Care 12/05/18 15:06 Active Vital Signs [RC] Q15M Care 12/05/18 12:06 Active Vital Signs [RC] Q4H Care 12/05/18 15:06 Active PT Evaluation and Treatment [CONS] Routine Cons 12/05/18 15:05 Active Renal Non-Dialysis Diet [DIET] Diet 12/05/18 Dinner Active Retroperitoneal Comp [US] Routine Exams 12/05/18 16:32 Stop Req Retroperitoneal Comp [US] Stat Exams 12/05/18 16:33 Ordered BASIC METABOLIC PANEL,BMP [CHEM] AM Lab 12/06/18 05:11 Ordered BASIC METABOLIC PANEL,BMP [CHEM] Routine Lab 12/05/18 16:14 Received CBC W/O DIFF,HEMOGRAM [HEME] AM Lab 12/06/18 05:11 Ordered CULTURE URINE [RM] Stat Lab 12/05/18 13:05 Received Diltiazem Med 12/06/18 09:00 Active 380 mg PO DAILY Docusate Sodium [Colace] Med 12/05/18 15:05 Active 100 mg PO BID PRN Folic Acid Med 12/06/18 09:00 Active 1 mg PO DAILY Heparin Sodium Med 12/05/18 15:15 Active 5,000 units SUBCUT Q8H Insulin Aspart [NovoLOG] Med 12/05/18 17:00 Ordered See Protocol SUBCUT TIDAC Metoprolol Succinate [Toprol XL] Med 12/05/18 21:00 Active 50 mg PO BID Ondansetron [Zofran] Med 12/05/18 15:05 Active 4 mg IVPUSH Q4H PRN Sodium Bicarbonate Med 12/05/18 21:00 Active 1,300 mg PO BID Sodium Chloride 0.9% [Normal Saline] 1,000 ml Med 12/05/18 13:28 Active IV STAT Sodium Chloride 0.9% [Saline Flush] Med 12/05/18 12:06 Active 10 ml FLUSH ASDIRECTED PRN Sodium Chloride 0.9% [Saline Flush] Med 12/05/18 12:06 Active 2.5 ml FLUSH ASDIRECTED PRN Peripheral IV Insertion Adult [OM.PC] Stat Oth 12/05/18 12:06 Ordered Peripheral IV Insertion Adult [OM.PC] Stat Oth 12/05/18 12:06 Ordered Sequential Compression Device [OM.PC] Per Unit Routine Oth 12/05/18 15:06 Ordered Resuscitation Status Routine Resus Stat 12/05/18 15:05 Ordered Medication Orders Docusate Sodium (Colace) 100 mg PO BID PRN PRN Reason: Constipation Folic Acid (Folic Acid) [address] [facility] Heparin Sodium (Porcine) (Heparin Sodium) 5,[address] [facility] Sodium Chloride (Normal Saline) 1,000 mls @ 125 mls/hr IV STAT ONE Stop: 12/05/18 21:27 Last Admin: 12/05/18 13:44 Dose: 125 mls/hr Metoprolol Succinate (Toprol Xl) [address] [facility] Non-Formulary Medication (Diltiazem) [address] [facility] Ondansetron HCl (Zofran) 4 mg IVPUSH Q4H PRN PRN Reason: Nausea Sodium Bicarbonate (Sodium Bicarbonate) 1,[address] [facility] Sodium Chloride (Saline Flush) 10 ml FLUSH ASDIRECTED PRN PRN Reason: Keep Vein Open Sodium Chloride (Saline Flush) 2.5 ml FLUSH ASDIRECTED PRN PRN Reason: Keep Vein Open
[2018-12-05] MEDS ORDERED: Docusate Sodium 100 MG Cap PO PRN (15:05)
[2018-12-05] MEDS ORDERED: Ondansetron 4 MG/2 ML SDV IVPUSH PRN (15:05)
[2018-12-05] MEDS ORDERED: Acetaminophen 325 MG Tab PO PRN (15:05)
[2018-12-05] MEDS ORDERED: Aspirin 81 MG Tab.Chew PO ONE (15:09)
[2018-12-05] MEDS ORDERED: Metoprolol Succinate 50 MG Tab.ER PO ONE (16:39)
[2018-12-05] MEDS ORDERED: Diltiazem 180 MG Cap.CD PO ONE (16:45)
[2018-12-05] MEDS: amLODIPine 5 MG Tab PO SCH (16:53)
[2018-12-05] MEDS: Heparin Sodium 5,000 Units/ML Vial SUBCUT SCH ×2 (16:54→22:55)
[2018-12-05] MEDS: Insulin Aspart 100 Units/ML 3 ML Pen SUBCUT SCH (17:59)
--- NOTE | 2018-12-05 18:23 | US ---
INDICATION: Acute renal injury. TECHNIQUE: Ultrasound renal and bladder complete. Steele-scale and color Doppler sonographic images were acquired of the kidneys and urinary bladder. COMPARISON: None FINDINGS: Right kidney: 10 cm. Left kidney: Absent. Normal echotexture and cortex. No masses, stones, or hydronephrosis. Bladder: Normal in caliber and appearance. Small trabeculations are present in the left bladder wall. Minimal free floating debris is in the bladder lumen. IMPRESSION: Normal right kidney. Left kidney is absent. Minimal nonspecific debris is present within the urinary bladder. Dictated by Dariel Wesley MD @ Dec 05 2018 6:19PM Signed by Dr. Dariel Wesley @ Dec 05 2018 6:23PM
[2018-12-05] MEDS: Metoprolol Succinate 50 MG Tab.ER PO SCH (21:00)
[2018-12-05] MEDS: Sodium Bicarbonate 650 MG Tab PO SCH (21:00)
[2018-12-05] MEDS: Sodium Chloride 0.9% 1,000 ML IV SCH (23:00)
[2018-12-06] MEDS: Heparin Sodium 5,000 Units/ML Vial SUBCUT SCH ×3 (06:29→22:26)
[2018-12-06] MEDS: Insulin Aspart 100 Units/ML 3 ML Pen SUBCUT SCH ×3 (06:30→18:30)
[2018-12-06] MEDS ORDERED: DILTIAZEM PO SCH (09:00)
[2018-12-06] MEDS: Sodium Bicarbonate 650 MG Tab PO SCH ×2 (09:20→20:59)
[2018-12-06] MEDS: Folic Acid 1 MG Tab PO SCH (09:20)
[2018-12-06] MEDS: Metoprolol Succinate 50 MG Tab.ER PO SCH ×2 (09:20→20:58)
[2018-12-06] MEDS: Diltiazem 180 MG Cap.CD PO SCH (09:21)
[2018-12-06] MEDS: amLODIPine 5 MG Tab PO SCH (09:21)
--- NOTE | 2018-12-06 10:00 | PCM.PN ---
<Ge Fontenot - Last Filed: 12/06/18 09:57> - General Info Date of Service: 12/06/18 Subjective Update: Has no complaints this morning, consistent with yesterday. Denying fever, dysuria, flank pain, shortness of breath. - Review of Systems General: Reports: Other (see hpi) - Patient Data Vitals - Most Recent: Last Vital Signs Temp 36.5 C 12/06/18 08:00 Pulse 64 12/06/18 09:20 Resp 18 12/06/18 08:00 BP 141/76 H 12/06/18 09:21 Pulse Ox 96 12/06/18 08:00 Weight - Most Recent: 72.8 kg I&O - Last 24 Hours: Intake & Output 12/05/18 12/06/18 12/06/18 22:59 06:59 14:59 Intake Total 500 Output Total 0 Balance 500 Lab Results Last 24 Hours: Laboratory Results - last 24 hr 12/05/18 12/05/18 12/05/18 Range/Units 13:05 13:05 14:04 WBC 9.22 (4.0-11.0) K/uL RBC 4.02 L (4.50-5.90) M/uL Hgb 11.9 L (13.0-17.0) g/dL Hct 36.0 L (38.0-50.0) % MCV 89.6 (80.0-98.0) fL MCH 29.6 (27.0-32.0) pg MCHC 33.1 (31.0-37.0) g/dL RDW Std Deviation 47.8 (28.0-62.0) fl RDW Coeff of Davy 15 (11.0-15.0) % Plt Count 168 (150-400) K/uL MPV 10.80 (7.40-12.00) fL Neut % (Auto) 61.4 (48.0-80.0) % Lymph % (Auto) 16.9 (16.0-40.0) % [place] % (Auto) 9.0 (0.0-15.0) % Eos % (Auto) 12.4 H (0.0-7.0) % Baso % (Auto) 0.3 (0.0-1.5) % Neut # (Auto) 5.7 (1.4-5.7) K/uL Lymph # (Auto) 1.6 (0.6-2.4) K/uL [place] # (Auto) 0.8 (0.0-0.8) K/uL Eos # (Auto) 1.1 H (0.0-0.7) K/uL Baso # (Auto) 0.0 (0.0-0.1) K/uL Nucleated RBC % 0.0 /100WBC Nucleated RBCs # 0 K/uL INR APTT (18.6-31.3) SEC Lactate (0.20-2.00) mmol/L Sodium (136-148) mmol/L Potassium (3.5-5.1) mmol/L Chloride (98-107) mmol/L Carbon Dioxide (21.0-32.0) mmol/L BUN (7.0-18.0) mg/dL Creatinine (0.8-1.3) mg/dL Est Cr Clr Drug Dosing Estimated GFR (MDRD) ml/min Glucose (74-106) mg/dL Calcium (8.5-10.1) mg/dL Total Bilirubin (0.2-1.0) mg/dL AST (15-37) IU/L ALT (14-63) IU/L Alkaline Phosphatase (46-116) U/L Troponin I (0.000-0.056) ng/mL Total Protein (6.4-8.2) g/dL Albumin (3.4-5.0) g/dL Globulin (2.6-4.0) g/dL Albumin/Globulin Ratio (0.9-1.6) TSH 3rd Generation (0.36-3.74) uIU/mL Urine Color YELLOW Urine Appearance SLT CLOUDY Urine pH 6.5 (5.0-8.0) Ur Specific [place] 1.020 (1.001-1.035) Urine Protein 100 H (NEGATIVE) mg/dL Urine Glucose (UA) NEGATIVE (NEGATIVE) mg/dL Urine Ketones NEGATIVE (NEGATIVE) mg/dL Urine Occult Blood SMALL H (NEGATIVE) Urine Nitrite NEGATIVE (NEGATIVE) Urine Bilirubin NEGATIVE (NEGATIVE) Urine Urobilinogen 0.2 (<2.0) EU/dL Ur Leukocyte Esterase LARGE H (NEGATIVE) Urine RBC 2-5 (0-2/HPF) Urine WBC 80-120 (0-5/HPF) Ur Epithelial Cells OCCASIONAL (NONE-FEW) Amorphous Sediment FEW (NEGATIVE) Urine Bacteria 3+ H (NEGATIVE) Urine Mucus FEW (NONE-MOD) Ur Random Creatinine 48.9 mg/dL Ur Random Sodium 85.0 (40.0-220.0) mmol/L 12/05/18 12/05/18 12/05/18 Range/Units 14:04 14:04 14:04 WBC (4.0-11.0) K/uL RBC (4.50-5.90) M/uL Hgb (13.0-17.0) g/dL Hct (38.0-50.0) % MCV (80.0-98.0) fL MCH (27.0-32.0) pg MCHC (31.0-37.0) g/dL RDW Std Deviation (28.0-62.0) fl RDW Coeff of Davy (11.0-15.0) % Plt Count (150-400) K/uL MPV (7.40-12.00) fL Neut % (Auto) (48.0-80.0) % Lymph % (Auto) (16.0-40.0) % [place] % (Auto) (0.0-15.0) % Eos % (Auto) (0.0-7.0) % Baso % (Auto) (0.0-1.5) % Neut # (Auto) (1.4-5.7) K/uL Lymph # (Auto) (0.6-2.4) K/uL [place] # (Auto) (0.0-0.8) K/uL Eos # (Auto) (0.0-0.7) K/uL Baso # (Auto) (0.0-0.1) K/uL Nucleated RBC % /100WBC Nucleated RBCs # K/uL INR 1.12 APTT 30.4 (18.6-31.3) SEC Lactate 1.4 (0.20-2.00) mmol/L Sodium 136 (136-148) mmol/L Potassium 4.2 (3.5-5.1) mmol/L Chloride 101 (98-107) mmol/L Carbon Dioxide 18.6 L (21.0-32.0) mmol/L BUN 59 H (7.0-18.0) mg/dL Creatinine 4.0 H (0.8-1.3) mg/dL Est Cr Clr Drug Dosing TNP Estimated GFR (MDRD) 14.2 ml/min Glucose 133 H (74-106) mg/dL Calcium 10.4 H (8.5-10.1) mg/dL Total Bilirubin 0.4 (0.2-1.0) mg/dL AST 16 (15-37) IU/L ALT 15 (14-63) IU/L Alkaline Phosphatase 85 (46-116) U/L Troponin I 0.052 (0.000-0.056) ng/mL Total Protein 7.6 (6.4-8.2) g/dL Albumin 3.3 L (3.4-5.0) g/dL Globulin 4.3 H (2.6-4.0) g/dL Albumin/Globulin Ratio 0.8 L (0.9-1.6) TSH 3rd Generation 0.54 (0.36-3.74) uIU/mL Urine Color Urine Appearance Urine pH (5.0-8.0) Ur Specific [place] (1.001-1.035) Urine Protein (NEGATIVE) mg/dL Urine Glucose (UA) (NEGATIVE) mg/dL Urine Ketones (NEGATIVE) mg/dL Urine Occult Blood (NEGATIVE) Urine Nitrite (NEGATIVE) Urine Bilirubin (NEGATIVE) Urine Urobilinogen (<2.0) EU/dL Ur Leukocyte Esterase (NEGATIVE) Urine RBC (0-2/HPF) Urine WBC (0-5/HPF) Ur Epithelial Cells (NONE-FEW) Amorphous Sediment (NEGATIVE) Urine Bacteria (NEGATIVE) Urine Mucus (NONE-MOD) Ur Random Creatinine mg/dL Ur Random Sodium (40.0-220.0) mmol/L 12/05/18 12/06/18 12/06/18 Range/Units 16:14 05:50 05:50 WBC 10.02 (4.0-11.0) K/uL RBC 4.01 L (4.50-5.90) M/uL Hgb 11.8 L (13.0-17.0) g/dL Hct 36.2 L (38.0-50.0) % MCV 90.3 (80.0-98.0) fL MCH 29.4 (27.0-32.0) pg MCHC 32.6 (31.0-37.0) g/dL RDW Std Deviation 47.9 (28.0-62.0) fl RDW Coeff of Davy 15 (11.0-15.0) % Plt Count 178 (150-400) K/uL MPV 10.60 (7.40-12.00) fL Neut % (Auto) (48.0-80.0) % Lymph % (Auto) (16.0-40.0) % [place] % (Auto) (0.0-15.0) % Eos % (Auto) (0.0-7.0) % Baso % (Auto) (0.0-1.5) % Neut # (Auto) (1.4-5.7) K/uL Lymph # (Auto) (0.6-2.4) K/uL [place] # (Auto) (0.0-0.8) K/uL Eos # (Auto) (0.0-0.7) K/uL Baso # (Auto) (0.0-0.1) K/uL Nucleated RBC % 0.0 /100WBC Nucleated RBCs # 0 K/uL INR APTT (18.6-31.3) SEC Lactate (0.20-2.00) mmol/L Sodium 139 142 (136-148) mmol/L Potassium 4.2 4.7 (3.5-5.1) mmol/L Chloride 104 107 (98-107) mmol/L Carbon Dioxide 20.5 L 22.1 (21.0-32.0) mmol/L BUN 59 H 56 H (7.0-18.0) mg/dL Creatinine 4.0 H 3.8 H (0.8-1.3) mg/dL Est Cr Clr Drug Dosing 11.30 11.89 Estimated GFR (MDRD) 14.2 15.1 ml/min Glucose 108 H 82 (74-106) mg/dL Calcium 10.7 H 10.4 H (8.5-10.1) mg/dL Total Bilirubin (0.2-1.0) mg/dL AST (15-37) IU/L ALT (14-63) IU/L Alkaline Phosphatase (46-116) U/L Troponin I (0.000-0.056) ng/mL Total Protein (6.4-8.2) g/dL Albumin (3.4-5.0) g/dL Globulin (2.6-4.0) g/dL Albumin/Globulin Ratio (0.9-1.6) TSH 3rd Generation (0.36-3.74) uIU/mL Urine Color Urine Appearance Urine pH (5.0-8.0) Ur Specific [place] (1.001-1.035) Urine Protein (NEGATIVE) mg/dL Urine Glucose (UA) (NEGATIVE) mg/dL Urine Ketones (NEGATIVE) mg/dL Urine Occult Blood (NEGATIVE) Urine Nitrite (NEGATIVE) Urine Bilirubin (NEGATIVE) Urine Urobilinogen (<2.0) EU/dL Ur Leukocyte Esterase (NEGATIVE) Urine RBC (0-2/HPF) Urine WBC (0-5/HPF) Ur Epithelial Cells (NONE-FEW) Amorphous Sediment (NEGATIVE) Urine Bacteria (NEGATIVE) Urine Mucus (NONE-MOD) Ur Random Creatinine mg/dL Ur Random Sodium (40.0-220.0) mmol/L Med Orders - Current: Current Medications Amlodipine Besylate (Norvasc) 5 mg PO DAILY [facility] Last Admin: 12/06/18 09:21 Dose: 5 mg Diltiazem HCl (Cardizem Cd) 360 mg PO DAILY [facility] Last Admin: 12/06/18 09:21 Dose: 360 mg Docusate Sodium (Colace) 100 mg PO BID PRN PRN Reason: Constipation Folic Acid (Folic Acid) 1 mg PO DAILY [facility] Last Admin: 12/06/18 09:20 Dose: 1 mg Heparin Sodium (Porcine) (Heparin Sodium) 5,000 units SUBCUT Q8H [facility] Last Admin: 12/06/18 06:29 Dose: 5,000 units Sodium Chloride (Normal Saline) 1,000 mls @ 75 mls/hr IV ASDIRECTED [facility] Last Admin: 12/05/18 23:00 Dose: 75 mls/hr Ceftriaxone Sodium/Dextrose 1 (gm/ Premix) 50 mls @ 100 mls/hr IV Q24H [facility] Insulin Aspart (Novolog) 0 unit SUBCUT TIDAC [facility]; Protocol Last Admin: 12/06/18 06:30 Dose: Not Given Metoprolol Succinate (Toprol Xl) 50 mg PO BID [facility] Last Admin: 12/06/18 09:20 Dose: 50 mg Ondansetron HCl (Zofran) 4 mg IVPUSH Q4H PRN PRN Reason: Nausea Sodium Bicarbonate (Sodium Bicarbonate) 1,300 mg PO BID DAJUAN Last Admin: 12/06/18 09:20 Dose: 1,300 mg Sodium Chloride (Saline Flush) 10 ml FLUSH ASDIRECTED PRN PRN Reason: Keep Vein Open Sodium Chloride (Saline Flush) 2.5 ml FLUSH ASDIRECTED PRN PRN Reason: Keep Vein Open Discontinued Medications Acetaminophen (Tylenol) 650 mg PO Q4H PRN PRN Reason: Pain (Mild 1-3)/fever Aspirin (Aspirin) 324 mg PO ONETIME ONE Stop: 12/05/18 15:10 Last Admin: 12/05/18 16:54 Dose: 324 mg Diltiazem HCl (Cardizem Cd) 360 mg PO NOW ONE Stop: 12/05/18 16:46 Last Admin: 12/05/18 16:53 Dose: 360 mg Diphenhydramine HCl (Benadryl) 25 mg IVPUSH ONETIME ONE Stop: 12/05/18 13:26 Last Admin: 12/05/18 13:44 Dose: 25 mg Ceftriaxone Sodium/Dextrose 1 (gm/ Premix) 50 mls @ 100 mls/hr IV ONETIME ONE Stop: 12/05/18 13:57 Last Admin: 12/05/18 13:44 Dose: 100 mls/hr Sodium Chloride (Normal Saline) 1,000 mls @ 125 mls/hr IV STAT ONE Stop: 12/05/18 21:27 Last Admin: 12/05/18 13:44 Dose: 125 mls/hr Metoprolol Succinate (Toprol Xl) 50 mg PO ONETIME ONE Stop: 12/05/18 16:40 Last Admin: 12/05/18 16:53 Dose: 50 mg - Exam General: Alert, Oriented HEENT: Pupils Equal, Pupils Reactive, EOMI, Mucous Membr. Moist/[place] Neck: Supple Lungs: Clear to Auscultation, Normal Respiratory Effort Cardiovascular: Regular Rate, Regular Rhythm GI/Abdominal Exam: Normal Bowel Sounds, Soft, Non-Tender, No Organomegaly, No Distention, No Abnormal Bruit, No Mass, Pelvis Stable Back Exam: Normal Inspection, Full Range of Motion. No: CVA Tenderness (L), CVA Tenderness (R) Extremities: Normal Inspection, Normal Range of Motion, Non-Tender, No Pedal Edema, Normal Capillary Refill Peripheral Pulses: 2+: Dorsalis Pedis (L), Dorsalis Pedis (R) Skin: Warm, Dry, Intact - Problem List Review Problem List Initiated/Reviewed/Updated: Yes - My Orders Last 24 Hours: My Active Orders 12/05/18 14:58 Telemetry Monitoring [Cardiac Monitoring] [RC] Q8H 12/05/18 15:05 Up With Assistance [RC] ASDIRECTED PT Evaluation and Treatment [CONS] Routine Docusate Sodium [Colace] 100 mg PO BID PRN Ondansetron [Zofran] 4 mg IVPUSH Q4H PRN Resuscitation Status Routine 12/05/18 15:06 Oxygen Therapy [RC] PRN VTE/DVT Education [RC] PER UNIT ROUTINE Vital Signs [RC] Q4H Sequential Compression Device [OM.PC] Per Unit Routine 12/05/18 15:07 Antiembolic Devices [RC] PER UNIT ROUTINE 12/05/18 15:10 Neuro Check [RC] Q4H 12/05/18 15:15 Heparin Sodium 5,000 units SUBCUT Q8H 12/05/18 17:00 Insulin Aspart [NovoLOG] See Protocol SUBCUT TIDAC 12/05/18 18:45 Sodium Chloride 0.9% [Normal Saline] 1,000 ml IV ASDIRECTED 12/05/18 21:00 Metoprolol Succinate [Toprol XL] 50 mg PO BID Sodium Bicarbonate 1,300 mg PO BID 12/05/18 Dinner Renal Non-Dialysis Diet [DIET] 12/06/18 09:00 Diltiazem [Cardizem CD] 360 mg PO DAILY Folic Acid 1 mg PO DAILY - Plan Plan:: Assessment: #1. UTI #2. Altered mental status - improved #3. MINDA with hx of CKD, nephrectomy #4. History of A. Fibrillation, T2DM, unspecified dementia, urinary incontinence , CKD Plan: #1. Continue observation. His kidney appears to have improved and is stable. Anticipate discharge tomorrow. <Jethro Gallardo - Last Filed: 12/06/18 13:19> - General Info Admission Dx/Problem (Free Text): I have seen and examined the patient independently of biomedical scientist. I agree with the assessment and plan of care as outlined by the biomedical scientist. Please see orders. - Patient Data Vitals - Most Recent: Last Vital Signs Temp 36.9 C 12/06/18 11:38 Pulse 63 12/06/18 11:38 Resp 18 12/06/18 11:38 BP 137/63 12/06/18 11:38 Pulse Ox 94 L 12/06/18 11:38 I&O - Last 24 Hours: Intake & Output 12/05/18 12/06/18 12/06/18 22:59 06:59 14:59 Intake Total 500 Output Total 0 Balance 500 Lab Results Last 24 Hours: Laboratory Results - last 24 hr 12/05/18 12/05/18 12/05/18 Range/Units 13:05 13:05 14:04 WBC 9.22 (4.0-11.0) K/uL RBC 4.02 L (4.50-5.90) M/uL Hgb 11.9 L (13.0-17.0) g/dL Hct 36.0 L (38.0-50.0) % MCV 89.6 (80.0-98.0) fL MCH 29.6 (27.0-32.0) pg MCHC 33.1 (31.0-37.0) g/dL RDW Std Deviation 47.8 (28.0-62.0) fl RDW Coeff of Davy 15 (11.0-15.0) % Plt Count 168 (150-400) K/uL MPV 10.80 (7.40-12.00) fL Neut % (Auto) 61.4 (48.0-80.0) % Lymph % (Auto) 16.9 (16.0-40.0) % [place] % (Auto) 9.0 (0.0-15.0) % Eos % (Auto) 12.4 H (0.0-7.0) % Baso % (Auto) 0.3 (0.0-1.5) % Neut # (Auto) 5.7 (1.4-5.7) K/uL Lymph # (Auto) 1.6 (0.6-2.4) K/uL [place] # (Auto) 0.8 (0.0-0.8) K/uL Eos # (Auto) 1.1 H (0.0-0.7) K/uL Baso # (Auto) 0.0 (0.0-0.1) K/uL Nucleated RBC % 0.0 /100WBC Nucleated RBCs # 0 K/uL INR APTT (18.6-31.3) SEC Lactate (0.20-2.00) mmol/L Sodium (136-148) mmol/L Potassium (3.5-5.1) mmol/L Chloride (98-107) mmol/L Carbon Dioxide (21.0-32.0) mmol/L BUN (7.0-18.0) mg/dL Creatinine (0.8-1.3) mg/dL Est Cr Clr Drug Dosing Estimated GFR (MDRD) ml/min Glucose (74-106) mg/dL Calcium (8.5-10.1) mg/dL Total Bilirubin (0.2-1.0) mg/dL AST (15-37) IU/L ALT (14-63) IU/L Alkaline Phosphatase (46-116) U/L Troponin I (0.000-0.056) ng/mL Total Protein (6.4-8.2) g/dL Albumin (3.4-5.0) g/dL Globulin (2.6-4.0) g/dL Albumin/Globulin Ratio (0.9-1.6) TSH 3rd Generation (0.36-3.74) uIU/mL Urine Color YELLOW Urine Appearance SLT CLOUDY Urine pH 6.5 (5.0-8.0) Ur Specific [place] 1.020 (1.001-1.035) Urine Protein 100 H (NEGATIVE) mg/dL Urine Glucose (UA) NEGATIVE (NEGATIVE) mg/dL Urine Ketones NEGATIVE (NEGATIVE) mg/dL Urine Occult Blood SMALL H (NEGATIVE) Urine Nitrite NEGATIVE (NEGATIVE) Urine Bilirubin NEGATIVE (NEGATIVE) Urine Urobilinogen 0.2 (<2.0) EU/dL Ur Leukocyte Esterase LARGE H (NEGATIVE) Urine RBC 2-5 (0-2/HPF) Urine WBC 80-120 (0-5/HPF) Ur Epithelial Cells OCCASIONAL (NONE-FEW) Amorphous Sediment FEW (NEGATIVE) Urine Bacteria 3+ H (NEGATIVE) Urine Mucus FEW (NONE-MOD) Ur Random Creatinine 48.9 mg/dL Ur Random Sodium 85.0 (40.0-220.0) mmol/L 12/05/18 12/05/18 12/05/18 Range/Units 14:04 14:04 14:04 WBC (4.0-11.0) K/uL RBC (4.50-5.90) M/uL Hgb (13.0-17.0) g/dL Hct (38.0-50.0) % MCV (80.0-98.0) fL MCH (27.0-32.0) pg MCHC (31.0-37.0) g/dL RDW Std Deviation (28.0-62.0) fl RDW Coeff of [place]y (11.0-15.0) % Plt Count (150-400) K/uL MPV (7.40-12.00) fL Neut % (Auto) (48.0-80.0) % Lymph % (Auto) (16.0-40.0) % [place] % (Auto) (0.0-15.0) % Eos % (Auto) (0.0-7.0) % Baso % (Auto) (0.0-1.5) % Neut # (Auto) (1.4-5.7) K/uL Lymph # (Auto) (0.6-2.4) K/uL [place] # (Auto) (0.0-0.8) K/uL Eos # (Auto) (0.0-0.7) K/uL Baso # (Auto) (0.0-0.1) K/uL Nucleated RBC % /100WBC Nucleated RBCs # K/uL INR 1.12 APTT 30.4 (18.6-31.3) SEC Lactate 1.4 (0.20-2.00) mmol/L Sodium 136 (136-148) mmol/L Potassium 4.2 (3.5-5.1) mmol/L Chloride 101 (98-107) mmol/L Carbon Dioxide 18.6 L (21.0-32.0) mmol/L BUN 59 H (7.0-18.0) mg/dL Creatinine 4.0 H (0.8-1.3) mg/dL Est Cr Clr Drug Dosing TNP Estimated GFR (MDRD) 14.2 ml/min Glucose 133 H (74-106) mg/dL Calcium 10.4 H (8.5-10.1) mg/dL Total Bilirubin 0.4 (0.2-1.0) mg/dL AST 16 (15-37) IU/L ALT 15 (14-63) IU/L Alkaline Phosphatase 85 (46-116) U/L Troponin I 0.052 (0.000-0.056) ng/mL Total Protein 7.6 (6.4-8.2) g/dL Albumin 3.3 L (3.4-5.0) g/dL Globulin 4.3 H (2.6-4.0) g/dL Albumin/Globulin Ratio 0.8 L (0.9-1.6) TSH 3rd Generation 0.54 (0.36-3.74) uIU/mL Urine Color Urine Appearance Urine pH (5.0-8.0) Ur Specific [place] (1.001-1.035) Urine Protein (NEGATIVE) mg/dL Urine Glucose (UA) (NEGATIVE) mg/dL Urine Ketones (NEGATIVE) mg/dL Urine Occult Blood (NEGATIVE) Urine Nitrite (NEGATIVE) Urine Bilirubin (NEGATIVE) Urine Urobilinogen (<2.0) EU/dL Ur Leukocyte Esterase (NEGATIVE) Urine RBC (0-2/HPF) Urine WBC (0-5/HPF) Ur Epithelial Cells (NONE-FEW) Amorphous Sediment (NEGATIVE) Urine Bacteria (NEGATIVE) Urine Mucus (NONE-MOD) Ur Random Creatinine mg/dL Ur Random Sodium (40.0-220.0) mmol/L 12/05/18 12/06/18 12/06/18 Range/Units 16:14 05:50 05:50 WBC 10.02 (4.0-11.0) K/uL RBC 4.01 L (4.50-5.90) M/uL Hgb 11.8 L (13.0-17.0) g/dL Hct 36.2 L (38.0-50.0) % MCV 90.3 (80.0-98.0) fL MCH 29.4 (27.0-32.0) pg MCHC 32.6 (31.0-37.0) g/dL RDW Std Deviation 47.9 (28.0-62.0) fl RDW Coeff of Davy 15 (11.0-15.0) % Plt Count 178 (150-400) K/uL MPV 10.60 (7.40-12.00) fL Neut % (Auto) (48.0-80.0) % Lymph % (Auto) (16.0-40.0) % [place] % (Auto) (0.0-15.0) % Eos % (Auto) (0.0-7.0) % Baso % (Auto) (0.0-1.5) % Neut # (Auto) (1.4-5.7) K/uL Lymph # (Auto) (0.6-2.4) K/uL [place] # (Auto) (0.0-0.8) K/uL Eos # (Auto) (0.0-0.7) K/uL Baso # (Auto) (0.0-0.1) K/uL Nucleated RBC % 0.0 /100WBC Nucleated RBCs # 0 K/uL INR APTT (18.6-31.3) SEC Lactate (0.20-2.00) mmol/L Sodium 139 142 (136-148) mmol/L Potassium 4.2 4.7 (3.5-5.1) mmol/L Chloride 104 107 (98-107) mmol/L Carbon Dioxide 20.5 L 22.1 (21.0-32.0) mmol/L BUN 59 H 56 H (7.0-18.0) mg/dL Creatinine 4.0 H 3.8 H (0.8-1.3) mg/dL Est Cr Clr Drug Dosing 11.30 11.89 Estimated GFR (MDRD) 14.2 15.1 ml/min Glucose 108 H 82 (74-106) mg/dL Calcium 10.7 H 10.4 H (8.5-10.1) mg/dL Total Bilirubin (0.2-1.0) mg/dL AST (15-37) IU/L ALT (14-63) IU/L Alkaline Phosphatase (46-116) U/L Troponin I (0.000-0.056) ng/mL Total Protein (6.4-8.2) g/dL Albumin (3.4-5.0) g/dL Globulin (2.6-4.0) g/dL Albumin/Globulin Ratio (0.9-1.6) TSH 3rd Generation (0.36-3.74) uIU/mL Urine Color Urine Appearance Urine pH (5.0-8.0) Ur Specific [place] (1.001-1.035) Urine Protein (NEGATIVE) mg/dL Urine Glucose (UA) (NEGATIVE) mg/dL Urine Ketones (NEGATIVE) mg/dL Urine Occult Blood (NEGATIVE) Urine Nitrite (NEGATIVE) Urine Bilirubin (NEGATIVE) Urine Urobilinogen (<2.0) EU/dL Ur Leukocyte Esterase (NEGATIVE) Urine RBC (0-2/HPF) Urine WBC (0-5/HPF) Ur Epithelial Cells (NONE-FEW) Amorphous Sediment (NEGATIVE) Urine Bacteria (NEGATIVE) Urine Mucus (NONE-MOD) Ur Random Creatinine mg/dL Ur Random Sodium (40.0-220.0) mmol/L Med Orders - Current: Current Medications Amlodipine Besylate (Norvasc) 5 mg PO DAILY [facility] Last Admin: 12/06/18 09:21 Dose: 5 mg Diltiazem HCl (Cardizem Cd) 360 mg PO DAILY [facility] Last Admin: 12/06/18 09:21 Dose: 360 mg Docusate Sodium (Colace) 100 mg PO BID PRN PRN Reason: Constipation Folic Acid (Folic Acid) 1 mg PO DAILY [facility] Last Admin: 12/06/18 09:20 Dose: 1 mg Heparin Sodium (Porcine) (Heparin Sodium) 5,000 units SUBCUT Q8H [facility] Last Admin: 12/06/18 06:29 Dose: 5,000 units Sodium Chloride (Normal Saline) 1,000 mls @ 75 mls/hr IV ASDIRECTED [facility] Last Admin: 12/05/18 23:00 Dose: 75 mls/hr Ceftriaxone Sodium/Dextrose 1 (gm/ Premix) 50 mls @ 100 mls/hr IV Q24H [facility] Last Admin: 12/06/18 12:37 Dose: 100 mls/hr Insulin Aspart (Novolog) 0 unit SUBCUT TIDAC [facility]; Protocol Last Admin: 12/06/18 06:30 Dose: Not Given Metoprolol Succinate (Toprol Xl) 50 mg PO BID [facility] Last Admin: 12/06/18 09:20 Dose: 50 mg Ondansetron HCl (Zofran) 4 mg IVPUSH Q4H PRN PRN Reason: Nausea Sodium Bicarbonate (Sodium Bicarbonate) 1,300 mg PO BID [facility] Last Admin: 12/06/18 09:20 Dose: 1,300 mg Sodium Chloride (Saline Flush) 10 ml FLUSH ASDIRECTED PRN PRN Reason: Keep Vein Open Sodium Chloride (Saline Flush) 2.5 ml FLUSH ASDIRECTED PRN PRN Reason: Keep Vein Open Discontinued Medications Acetaminophen (Tylenol) 650 mg PO Q4H PRN PRN Reason: Pain (Mild 1-3)/fever Aspirin (Aspirin) 324 mg PO ONETIME ONE Stop: 12/05/18 15:10 Last Admin: 12/05/18 16:54 Dose: 324 mg Diltiazem HCl (Cardizem Cd) 360 mg PO NOW ONE Stop: 12/05/18 16:46 Last Admin: 12/05/18 16:53 Dose: 360 mg Diphenhydramine HCl (Benadryl) 25 mg IVPUSH ONETIME ONE Stop: 12/05/18 13:26 Last Admin: 12/05/18 13:44 Dose: 25 mg Ceftriaxone Sodium/Dextrose 1 (gm/ Premix) 50 mls @ 100 mls/hr IV ONETIME ONE Stop: 12/05/18 13:57 Last Admin: 12/05/18 13:44 Dose: 100 mls/hr Sodium Chloride (Normal Saline) 1,000 mls @ 125 mls/hr IV STAT ONE Stop: 12/05/18 21:27 Last Admin: 12/05/18 13:44 Dose: 125 mls/hr Metoprolol Succinate (Toprol Xl) 50 mg PO ONETIME ONE Stop: 12/05/18 16:40 Last Admin: 12/05/18 16:53 Dose: 50 mg - My Orders Last 24 Hours: My Active Orders 12/05/18 16:45 amLODIPine [Norvasc] 5 mg PO DAILY 12/05/18 17:26 Blood Glucose Check, Bedside [RC] TIDAC 12/06/18 13:00 cefTRIAXone [Rocephin in Dextrose,Iso-Osm 1 GM/50 ML] 1 gm Premix Bag 1 bag IV Q24H
[2018-12-06] MEDS: cefTRIAXone 1 GM in Premix Bag 1 BAG IV SCH (12:37)
[2018-12-06] MEDS: Sodium Chloride 0.9% 1,000 ML IV SCH (14:24)
[2018-12-07] MEDS: Heparin Sodium 5,000 Units/ML Vial SUBCUT SCH ×3 (06:22→23:05)
[2018-12-07] MEDS: Insulin Aspart 100 Units/ML 3 ML Pen SUBCUT SCH ×3 (06:30→23:04)
--- NOTE | 2018-12-07 06:46 | PCM.PN ---
- General Info Date of Service: 12/07/18 Subjective Update: The patient is an 88-year-old gentleman who has a number of chronic medical problems was admitted on December 05, 2018 secondary to episodes of slurred speech, confusion and was found to have a UTI with acute on chronic kidney injury. The patient did not have a stroke. The patient has a baseline dementia however, he says that he is improved today. The patient's is with him and she is concerned about transporting him in our out-of-town with current weather conditions. The patient also had been complaining of severe itching to his back and arms. The patient's had asked about cream for his back. The patient has denied pain. Functional Status: Reports: Pain Controlled, Tolerating Diet - Review of Systems General: Reports: No Symptoms HEENT: Reports: No Symptoms Pulmonary: Reports: No Symptoms Cardiovascular: Reports: No Symptoms Gastrointestinal: Reports: No Symptoms Genitourinary: Reports: No Symptoms Musculoskeletal: Reports: No Symptoms Skin: Reports: Pruritis Neurological: Reports: No Symptoms Psychiatric: Reports: No Symptoms Systems Review Comment:: Mild baseline dementia - Patient Data Vitals - Most Recent: Last Vital Signs Temp 36.7 C 12/07/18 04:00 Pulse 90 12/07/18 04:00 Resp 20 12/07/18 04:00 BP 170/81 H 12/07/18 04:00 Pulse Ox 95 12/07/18 04:00 Weight - Most Recent: 73.085 kg I&O - Last 24 Hours: Intake & Output 12/06/18 12/06/18 12/07/18 14:59 22:59 06:59 Intake Total 2911 200 Balance 2911 200 Lab Results Last 24 Hours: Laboratory Results - last 24 hr 12/05/18 12/06/18 12/06/18 Range/Units 17:26 06:28 11:45 Sodium (136-148) mmol/L Potassium (3.5-5.1) mmol/L Chloride (98-107) mmol/L Carbon Dioxide (21.0-32.0) mmol/L BUN (7.0-18.0) mg/dL Creatinine (0.8-1.3) mg/dL Est Cr Clr Drug Dosing mL/min Estimated GFR (MDRD) ml/min Glucose (74-106) mg/dL POC Glucose 168 H 88 237 H (60-110) mg/dL Calcium (8.5-10.1) mg/dL 12/07/18 Range/Units 05:47 Sodium 141 (136-148) mmol/L Potassium 4.7 (3.5-5.1) mmol/L Chloride 108 H (98-107) mmol/L Carbon Dioxide 20.5 L (21.0-32.0) mmol/L BUN 51 H (7.0-18.0) mg/dL Creatinine 3.4 H (0.8-1.3) mg/dL Est Cr Clr Drug Dosing 13.29 mL/min Estimated GFR (MDRD) 17.1 ml/min Glucose 137 H (74-106) mg/dL POC Glucose (60-110) mg/dL Calcium 10.5 H (8.5-10.1) mg/dL Med Orders - Current: Current Medications Amlodipine Besylate (Norvasc) 5 mg PO DAILY [facility] Last Admin: 12/06/18 09:21 Dose: 5 mg Diltiazem HCl (Cardizem Cd) 360 mg PO DAILY [facility] Last Admin: 12/06/18 09:21 Dose: 360 mg Docusate Sodium (Colace) 100 mg PO BID PRN PRN Reason: Constipation Folic Acid (Folic Acid) 1 mg PO DAILY [facility] Last Admin: 12/06/18 09:20 Dose: 1 mg Heparin Sodium (Porcine) (Heparin Sodium) 5,000 units SUBCUT Q8H [facility] Last Admin: 12/07/18 06:22 Dose: 5,000 units Sodium Chloride (Normal Saline) 1,000 mls @ 75 mls/hr IV ASDIRECTED [facility] Last Admin: 12/06/18 14:24 Dose: 75 mls/hr Ceftriaxone Sodium/Dextrose 1 (gm/ Premix) 50 mls @ 100 mls/hr IV Q24H [facility] Last Admin: 12/06/18 12:37 Dose: 100 mls/hr Insulin Aspart (Novolog) 0 unit SUBCUT TIDAC [facility]; Protocol Last Admin: 12/07/18 06:30 Dose: Not Given Metoprolol Succinate (Toprol Xl) 50 mg PO BID [facility] Last Admin: 12/06/18 20:58 Dose: 50 mg Ondansetron HCl (Zofran) 4 mg IVPUSH Q4H PRN PRN Reason: Nausea Sodium Bicarbonate (Sodium Bicarbonate) 1,300 mg PO BID [facility] Last Admin: 12/06/18 20:59 Dose: 1,300 mg Sodium Chloride (Saline Flush) 10 ml FLUSH ASDIRECTED PRN PRN Reason: Keep Vein Open Sodium Chloride (Saline Flush) 2.5 ml FLUSH ASDIRECTED PRN PRN Reason: Keep Vein Open Discontinued Medications Acetaminophen (Tylenol) 650 mg PO Q4H PRN PRN Reason: Pain (Mild 1-3)/fever Aspirin (Aspirin) 324 mg PO ONETIME ONE Stop: 12/05/18 15:10 Last Admin: 12/05/18 16:54 Dose: 324 mg Diltiazem HCl (Cardizem Cd) 360 mg PO NOW ONE Stop: 12/05/18 16:46 Last Admin: 12/05/18 16:53 Dose: 360 mg Diphenhydramine HCl (Benadryl) 25 mg IVPUSH ONETIME ONE Stop: 12/05/18 13:26 Last Admin: 12/05/18 13:44 Dose: 25 mg Ceftriaxone Sodium/Dextrose 1 (gm/ Premix) 50 mls @ 100 mls/hr IV ONETIME ONE Stop: 12/05/18 13:57 Last Admin: 12/05/18 13:44 Dose: 100 mls/hr Sodium Chloride (Normal Saline) 1,000 mls @ 125 mls/hr IV STAT ONE Stop: 12/05/18 21:27 Last Admin: 12/05/18 13:44 Dose: 125 mls/hr Metoprolol Succinate (Toprol Xl) 50 mg PO ONETIME ONE Stop: 12/05/18 16:40 Last Admin: 12/05/18 16:53 Dose: 50 mg - Exam Quality Assessment: Supplemental Oxygen General: Alert, Oriented, Cooperative, No Acute Distress HEENT: Pupils Equal, Pupils Reactive Neck: Supple, Trachea Midline Lungs: Clear to Auscultation, Normal Respiratory Effort Cardiovascular: Regular Rate, Regular Rhythm GI/Abdominal Exam: Normal Bowel Sounds, Soft, No Distention (Male) Exam: Deferred Back Exam: Normal Inspection, Full Range of Motion Extremities: Normal Inspection, No Pedal Edema Skin: Warm, Rash Neurological: No New Focal Deficit Psy/Mental Status: Alert, Normal Affect - Problem List & Annotations (1) Altered mental status, unspecified SNOMED Code(s): 719712786 Code(s): R41.82 - ALTERED MENTAL STATUS, UNSPECIFIED Status: Acute Priority: High Current Visit: Yes Qualifiers: Altered mental status type: unspecified Qualified Code(s): R41.82 - Altered mental status, unspecified Annotation/Comment:: Improved (2) UTI (urinary tract infection) SNOMED Code(s): 66102130 Code(s): N39.0 - URINARY TRACT INFECTION, SITE NOT SPECIFIED Status: Acute Priority: High Current Visit: Yes Qualifiers: Urinary tract infection type: acute cystitis Hematuria presence: without hematuria Qualified Code(s): N30.00 - Acute cystitis without hematuria (3) Acute on chronic renal failure SNOMED Code(s): 382575215 Code(s): N17.9 - ACUTE KIDNEY FAILURE, UNSPECIFIED; N18.9 - CHRONIC KIDNEY DISEASE, UNSPECIFIED Status: Chronic Priority: Medium Current Visit: No Qualifiers: Acute renal failure type: unspecified Chronic kidney disease stage: stage 4 (severe) Qualified Code(s): N17.9 - Acute kidney failure, unspecified; N18.4 - Chronic kidney disease, stage 4 (severe) (4) Atrial fibrillation with RVR SNOMED Code(s): 586934210938068 Code(s): I48.91 - UNSPECIFIED ATRIAL FIBRILLATION Status: Chronic Priority: Medium Current Visit: Yes - Problem List Review Problem List Initiated/Reviewed/Updated: Yes - My Orders Last 24 Hours: My Active Orders 12/06/18 13:00 cefTRIAXone [Rocephin in Dextrose,Iso-Osm 1 GM/50 ML] 1 gm Premix Bag 1 bag IV Q24H - Plan Plan:: Assessment: #1. UTI #2. Altered mental status - improved #3. MINDA with hx of CKD, nephrectomy #4. History of A. Fibrillation, T2DM, unspecified dementia, urinary incontinence , CKD Plan: #1. Continue observation. His kidney appears to have improved and is stable. Anticipate discharge tomorrow. The patient is an 88-year-old gentleman who is doing better today. I've elected to keep the patient in hospitalization with at least 1 more day of IV antibiotics for his urinary tract infection. The patient at this time still in a DO NOT INTUBATE/DO NOT RESUSCITATE category and this will be honored. I had a discussion with the patient and the patient's and they had indicated that he would likely be been admitted by remaining in hospitalization rather than traveling home for an hour in inclement weather. The patient will continue on his diabetic diet with Accu-Cheks as previously scheduled. I've ordered repeat laboratory testing for the morning. The patient should be appropriate for discharge in 1-2 days.
[2018-12-07] MEDS: Folic Acid 1 MG Tab PO SCH (09:15)
[2018-12-07] MEDS: amLODIPine 5 MG Tab PO SCH (09:15)
[2018-12-07] MEDS: Metoprolol Succinate 50 MG Tab.ER PO SCH ×2 (09:15→21:05)
[2018-12-07] MEDS: Diltiazem 180 MG Cap.CD PO SCH (09:15)
[2018-12-07] MEDS: Sodium Bicarbonate 650 MG Tab PO SCH ×2 (09:15→21:05)
[2018-12-07] MEDS: Hydrocortisone 1% Crm 30 GM Tube TOP SCH ×2 (09:16→21:14)
[2018-12-07] MEDS: Sodium Chloride 0.9% 1,000 ML IV SCH (12:19)
[2018-12-07] MEDS: cefTRIAXone 1 GM in Premix Bag 1 BAG IV SCH (13:29)
[2018-12-08] MEDS: Heparin Sodium 5,000 Units/ML Vial SUBCUT SCH (06:47)
[2018-12-08] MEDS: Insulin Aspart 100 Units/ML 3 ML Pen SUBCUT SCH (06:49)
[2018-12-08 08:23] VITALS: BP 167/73
[2018-12-08] MEDS: Metoprolol Succinate 50 MG Tab.ER PO SCH (08:45)
[2018-12-08] MEDS: Folic Acid 1 MG Tab PO SCH (08:46)
[2018-12-08] MEDS: amLODIPine 5 MG Tab PO SCH (08:46)
[2018-12-08] MEDS: Diltiazem 180 MG Cap.CD PO SCH (08:46)
[2018-12-08] MEDS: Hydrocortisone 1% Crm 30 GM Tube TOP SCH (08:47)
[2018-12-08] MEDS: Sodium Bicarbonate 650 MG Tab PO SCH (08:47)
--- NOTE | 2018-12-08 10:34 | PCM.DCSUM1 ---
<Ge Fontenot - Last Filed: 12/08/18 11:06> Discharge Summary - Hospital Course Free Text/Narrative:: Admission date: 12/05/2018 Discharge date: 12/08/2018 Admission diagnosis: #1. UTI #2. Altered mental status #3. MINDA #4. History of A. Fibrillation, T2DM, unspecified dementia, urinary incontinence , CKD, BPH Discharge diagnosis: #1. UTI #2. Altered mental status - improved #3. MINDA - improved #4. History of A. Fibrillation, T2DM, unspecified dementia, urinary incontinence , CKD Hospital course: 88M admitted for confusion found to have UTI with acute on chronic kidney injury. He was admitted for further management including IVF, IV rocephin. He responded to this well, with significant improvement in his mental status and kidney function. Urine culture + For Klebsiella. He was ultimately discharged home with PO keflex and to f/u with his PCP, and lock tender. Return precautions were discussed. - Discharge Data Discharge Date: 12/08/18 Discharge Disposition: Home, Self-Care 01 Condition: Fair - Patient Summary/Data Consults: Consultations 12/05/18 15:05 PT Evaluation and Treatment [CONS] Routine - Patient Instructions Diet: Renal Diet Activity: As Tolerated Showering/Bathing: March Shower Notify Provider of: Fever, Increased Pain, Swelling and Redness, Drainage, Nausea and/or Vomiting - Discharge Plan Prescriptions/Med Rec: cephALEXin [Keflex] 500 mg PO Q12H 3 Days #6 cap Home Medications: Home Meds Dutasteride 0.5 mg PO BID 12/23/16 [History] Folic Acid 1 mg PO DAILY 12/23/16 [History] Sodium Bicarbonate 1,300 mg PO BID 12/23/16 [History] Tamsulosin [Flomax] 0.8 mg PO DAILY 12/23/16 [History] Metoprolol Succinate [Toprol XL] 50 mg PO BID #60 tab.er 01/01/17 [Rx] Vit C/E/Zn/Coppr/Lutein/Zeaxan [Preservision Areds 2 Softgel] 1 tab PO BID 08/14 [History] Calcitriol 0.25 mg PO DAILY 12/05/18 [History] Diltiazem [Dilacor XR] 380 mg PO DAILY 12/05/18 [History] Insulin Glargine,Hum.Rec.Anlog [Basaglar Kwikpen U-100] 14 units INJECT ASDIRECTED 12/05/18 [History] Insulin Glargine,Hum.Rec.Anlog [Basaglar Kwikpen U-100] 22 units INJECT ASDIRECTED 12/05/18 [History] amLODIPine [Norvasc] 5 mg PO DAILY 12/05/18 [History] cephALEXin [Keflex] 500 mg PO Q12H 3 Days #6 cap 12/08/18 [Rx] Patient Handouts: Urinary Tract Infection, Adult, Cephalexin tablets or capsules Referrals: Dread Burr MD [Physician] - 12/29/18 12:45 pm - Discharge Summary/Plan Comment DC Time >30 min.: No - Patient Data Vitals - Most Recent: Last Vital Signs Temp 36.3 C 12/08/18 08:00 Pulse 61 12/08/18 08:45 Resp 18 12/08/18 08:00 BP 167/73 H 12/08/18 08:46 Pulse Ox 94 L 12/08/18 08:00 Weight - Most Recent: 73.085 kg I&O - Last 24 hours: Intake & Output 12/07/18 12/08/18 12/08/18 22:59 06:59 14:59 Intake Total 1275 150 Balance 1275 150 Lab Results - Last 24 hrs: Laboratory Results - last 24 hr 12/06/18 12/07/18 12/07/18 Range/Units 16:38 06:24 11:59 WBC (4.0-11.0) K/uL RBC (4.50-5.90) M/uL Hgb (13.0-17.0) g/dL Hct (38.0-50.0) % MCV (80.0-98.0) fL MCH (27.0-32.0) pg MCHC (31.0-37.0) g/dL RDW Std Deviation (28.0-62.0) fl RDW Coeff of Davy (11.0-15.0) % Plt Count (150-400) K/uL MPV (7.40-12.00) fL Neut % (Auto) (48.0-80.0) % Lymph % (Auto) (16.0-40.0) % Maverick % (Auto) (0.0-15.0) % Eos % (Auto) (0.0-7.0) % Baso % (Auto) (0.0-1.5) % Neut # (Auto) (1.4-5.7) K/uL Lymph # (Auto) (0.6-2.4) K/uL Maverick # (Auto) (0.0-0.8) K/uL Eos # (Auto) (0.0-0.7) K/uL Baso # (Auto) (0.0-0.1) K/uL Nucleated RBC % /100WBC Nucleated RBCs # K/uL Sodium (136-148) mmol/L Potassium (3.5-5.1) mmol/L Chloride (98-107) mmol/L Carbon Dioxide (21.0-32.0) mmol/L BUN (7.0-18.0) mg/dL Creatinine (0.8-1.3) mg/dL Est Cr Clr Drug Dosing mL/min Estimated GFR (MDRD) ml/min Glucose (74-106) mg/dL POC Glucose 180 H 138 H 236 H (60-110) mg/dL Calcium (8.5-10.1) mg/dL 12/07/18 12/08/18 12/08/18 Range/Units 16:19 06:15 06:15 WBC 7.99 (4.0-11.0) K/uL RBC 4.08 L (4.50-5.90) M/uL Hgb 11.9 L (13.0-17.0) g/dL Hct 36.8 L (38.0-50.0) % MCV 90.2 (80.0-98.0) fL MCH 29.2 (27.0-32.0) pg MCHC 32.3 (31.0-37.0) g/dL RDW Std Deviation 48.7 (28.0-62.0) fl RDW Coeff of Davy 15 (11.0-15.0) % Plt Count 173 (150-400) K/uL MPV 10.80 (7.40-12.00) fL Neut % (Auto) 54.4 (48.0-80.0) % Lymph % (Auto) 22.0 (16.0-40.0) % Maverick % (Auto) 9.9 (0.0-15.0) % Eos % (Auto) 13.3 H (0.0-7.0) % Baso % (Auto) 0.4 (0.0-1.5) % Neut # (Auto) 4.4 (1.4-5.7) K/uL Lymph # (Auto) 1.8 (0.6-2.4) K/uL Maverick # (Auto) 0.8 (0.0-0.8) K/uL Eos # (Auto) 1.1 H (0.0-0.7) K/uL Baso # (Auto) 0.0 (0.0-0.1) K/uL Nucleated RBC % 0.0 /100WBC Nucleated RBCs # 0 K/uL Sodium 143 (136-148) mmol/L Potassium 4.0 (3.5-5.1) mmol/L Chloride 110 H (98-107) mmol/L Carbon Dioxide 20.8 L (21.0-32.0) mmol/L BUN 48 H (7.0-18.0) mg/dL Creatinine 3.1 H (0.8-1.3) mg/dL Est Cr Clr Drug Dosing 14.58 mL/min Estimated GFR (MDRD) 19.1 ml/min Glucose 111 H (74-106) mg/dL POC Glucose 169 H (60-110) mg/dL Calcium 10.4 H (8.5-10.1) mg/dL ANKUR Results - Last 24 hrs: Microbiology 12/05/18 13:05 Urine Culture - Final Urine, Clean Catch Klebsiella Pneumoniae Med Orders - Current: Current Medications Amlodipine Besylate (Norvasc) 5 mg PO DAILY [facility] Last Admin: 12/08/18 08:46 Dose: 5 mg Diltiazem HCl (Cardizem Cd) 360 mg PO DAILY [facility] Last Admin: 12/08/18 08:46 Dose: 360 mg Docusate Sodium (Colace) 100 mg PO BID PRN PRN Reason: Constipation Folic Acid (Folic Acid) 1 mg PO DAILY [facility] Last Admin: 12/08/18 08:46 Dose: 1 mg Heparin Sodium (Porcine) (Heparin Sodium) 5,000 units SUBCUT Q8H [facility] Last Admin: 12/08/18 06:47 Dose: 5,000 units Hydrocortisone (Hydrocortisone 1% Crm) 0 gm TOP BID [facility] Last Admin: 12/08/18 08:47 Dose: 1 applic Sodium Chloride (Normal Saline) 1,000 mls @ 75 mls/hr IV ASDIRECTED [facility] Last Admin: 12/07/18 12:19 Dose: 75 mls/hr Ceftriaxone Sodium 1 gm/ (Sodium Chloride) 50 mls @ 100 mls/hr IV Q24H [facility] Insulin Aspart (Novolog) 0 unit SUBCUT TIDAC [facility]; Protocol Last Admin: 12/08/18 06:49 Dose: Not Given Metoprolol Succinate (Toprol Xl) 50 mg PO BID [facility] Last Admin: 12/08/18 08:45 Dose: 50 mg Ondansetron HCl (Zofran) 4 mg IVPUSH Q4H PRN PRN Reason: Nausea Sodium Bicarbonate (Sodium Bicarbonate) 1,300 mg PO BID [facility] Last Admin: 12/08/18 08:47 Dose: 1,300 mg Sodium Chloride (Saline Flush) 10 ml FLUSH ASDIRECTED PRN PRN Reason: Keep Vein Open Sodium Chloride (Saline Flush) 2.5 ml FLUSH ASDIRECTED PRN PRN Reason: Keep Vein Open Discontinued Medications Acetaminophen (Tylenol) 650 mg PO Q4H PRN PRN Reason: Pain (Mild 1-3)/fever Aspirin (Aspirin) 324 mg PO ONETIME ONE Stop: 12/05/18 15:10 Last Admin: 12/05/18 16:54 Dose: 324 mg Diltiazem HCl (Cardizem Cd) 360 mg PO NOW ONE Stop: 12/05/18 16:46 Last Admin: 12/05/18 16:53 Dose: 360 mg Diphenhydramine HCl (Benadryl) 25 mg IVPUSH ONETIME ONE Stop: 12/05/18 13:26 Last Admin: 12/05/18 13:44 Dose: 25 mg Ceftriaxone Sodium/Dextrose 1 (gm/ Premix) 50 mls @ 100 mls/hr IV ONETIME ONE Stop: 12/05/18 13:57 Last Admin: 12/05/18 13:44 Dose: 100 mls/hr Sodium Chloride (Normal Saline) 1,000 mls @ 125 mls/hr IV STAT ONE Stop: 12/05/18 21:27 Last Admin: 12/05/18 13:44 Dose: 125 mls/hr Ceftriaxone Sodium/Dextrose 1 (gm/ Premix) 50 mls @ 100 mls/hr IV Q24H [facility] Last Admin: 12/07/18 13:29 Dose: 100 mls/hr Metoprolol Succinate (Toprol Xl) 50 mg PO ONETIME ONE Stop: 12/05/18 16:40 Last Admin: 12/05/18 16:53 Dose: 50 mg <Jethro Gallardo - Last Filed: 12/08/18 11:46> Discharge Summary - Hospital Course HPI Initial Comments: I have seen and examined the patient independently of medical administrative technician. I agree with the assessment and plan of care as outlined for this patient by the resident. Please see orders. The patient is overall improved. He was retained in hospitalization secondary to not having a safe discharge due to inclement weather and distance to home. He is appropriate for discharge at this time. - Discharge Diagnosis/Problem(s) (1) Altered mental status, unspecified SNOMED Code(s): 781695916 ICD Code: R41.82 - ALTERED MENTAL STATUS, UNSPECIFIED Status: Acute Priority: High Problem Details: Improved Qualifiers: Altered mental status type: unspecified Qualified Code(s): R41.82 - Altered mental status, unspecified (2) UTI (urinary tract infection) SNOMED Code(s): 65154942 ICD Code: N39.0 - URINARY TRACT INFECTION, SITE NOT SPECIFIED Status: Acute Priority: High Qualifiers: Urinary tract infection type: acute cystitis Hematuria presence: without hematuria Qualified Code(s): N30.00 - Acute cystitis without hematuria (3) Acute on chronic renal failure SNOMED Code(s): 143180763 ICD Code: N17.9 - ACUTE KIDNEY FAILURE, UNSPECIFIED; N18.9 - CHRONIC KIDNEY DISEASE, UNSPECIFIED Status: Chronic Priority: Medium Qualifiers: Acute renal failure type: unspecified Chronic kidney disease stage: stage 4 (severe) Qualified Code(s): N17.9 - Acute kidney failure, unspecified; N18.4 - Chronic kidney disease, stage 4 (severe) (4) Atrial fibrillation with RVR SNOMED Code(s): 577874099615772 ICD Code: I48.91 - UNSPECIFIED ATRIAL FIBRILLATION Status: Chronic Priority: Medium - Patient Summary/Data Consults: Consultations 12/05/18 15:05 PT Evaluation and Treatment [CONS] Routine - Patient Data Vitals - Most Recent: Last Vital Signs Temp 36.3 C 12/08/18 08:00 Pulse 61 12/08/18 08:45 Resp 18 12/08/18 08:00 BP 167/73 H 12/08/18 08:46 Pulse Ox 94 L 12/08/18 08:00 I&O - Last 24 hours: Intake & Output 12/07/18 12/08/18 12/08/18 22:59 06:59 14:59 Intake Total 1275 150 Balance 1275 150 Lab Results - Last 24 hrs: Laboratory Results - last 24 hr 12/07/18 12/07/18 12/08/18 Range/Units 11:59 16:19 06:15 WBC (4.0-11.0) K/uL RBC (4.50-5.90) M/uL Hgb (13.0-17.0) g/dL Hct (38.0-50.0) % MCV (80.0-98.0) fL MCH (27.0-32.0) pg MCHC (31.0-37.0) g/dL RDW Std Deviation (28.0-62.0) fl RDW Coeff of Davy (11.0-15.0) % Plt Count (150-400) K/uL MPV (7.40-12.00) fL Neut % (Auto) (48.0-80.0) % Lymph % (Auto) (16.0-40.0) % Maverick % (Auto) (0.0-15.0) % Eos % (Auto) (0.0-7.0) % Baso % (Auto) (0.0-1.5) % Neut # (Auto) (1.4-5.7) K/uL Lymph # (Auto) (0.6-2.4) K/uL Maverick # (Auto) (0.0-0.8) K/uL Eos # (Auto) (0.0-0.7) K/uL Baso # (Auto) (0.0-0.1) K/uL Nucleated RBC % /100WBC Nucleated RBCs # K/uL Sodium 143 (136-148) mmol/L Potassium 4.0 (3.5-5.1) mmol/L Chloride 110 H (98-107) mmol/L Carbon Dioxide 20.8 L (21.0-32.0) mmol/L BUN 48 H (7.0-18.0) mg/dL Creatinine 3.1 H (0.8-1.3) mg/dL Est Cr Clr Drug Dosing 14.58 mL/min Estimated GFR (MDRD) 19.1 ml/min Glucose 111 H (74-106) mg/dL POC Glucose 236 H 169 H (60-110) mg/dL Calcium 10.4 H (8.5-10.1) mg/dL 12/08/18 Range/Units 06:15 WBC 7.99 (4.0-11.0) K/uL RBC 4.08 L (4.50-5.90) M/uL Hgb 11.9 L (13.0-17.0) g/dL Hct 36.8 L (38.0-50.0) % MCV 90.2 (80.0-98.0) fL MCH 29.2 (27.0-32.0) pg MCHC 32.3 (31.0-37.0) g/dL RDW Std Deviation 48.7 (28.0-62.0) fl RDW Coeff of Davy 15 (11.0-15.0) % Plt Count 173 (150-400) K/uL MPV 10.80 (7.40-12.00) fL Neut % (Auto) 54.4 (48.0-80.0) % Lymph % (Auto) 22.0 (16.0-40.0) % Maverick % (Auto) 9.9 (0.0-15.0) % Eos % (Auto) 13.3 H (0.0-7.0) % Baso % (Auto) 0.4 (0.0-1.5) % Neut # (Auto) 4.4 (1.4-5.7) K/uL Lymph # (Auto) 1.8 (0.6-2.4) K/uL Maverick # (Auto) 0.8 (0.0-0.8) K/uL Eos # (Auto) 1.1 H (0.0-0.7) K/uL Baso # (Auto) 0.0 (0.0-0.1) K/uL Nucleated RBC % 0.0 /100WBC Nucleated RBCs # 0 K/uL Sodium (136-148) mmol/L Potassium (3.5-5.1) mmol/L Chloride (98-107) mmol/L Carbon Dioxide (21.0-32.0) mmol/L BUN (7.0-18.0) mg/dL Creatinine (0.8-1.3) mg/dL Est Cr Clr Drug Dosing mL/min Estimated GFR (MDRD) ml/min Glucose (74-106) mg/dL POC Glucose (60-110) mg/dL Calcium (8.5-10.1) mg/dL ANKUR Results - Last 24 hrs: Microbiology 12/05/18 13:05 Urine Culture - Final Urine, Clean Catch Klebsiella Pneumoniae Med Orders - Current: Current Medications Discontinued Medications Acetaminophen (Tylenol) 650 mg PO Q4H PRN PRN Reason: Pain (Mild 1-3)/fever Amlodipine Besylate (Norvasc) 5 mg PO DAILY [facility] Last Admin: 12/08/18 08:46 Dose: 5 mg Aspirin (Aspirin) 324 mg PO ONETIME ONE Stop: 12/05/18 15:10 Last Admin: 12/05/18 16:54 Dose: 324 mg Diltiazem HCl (Cardizem Cd) 360 mg PO NOW ONE Stop: 12/05/18 16:46 Last Admin: 12/05/18 16:53 Dose: 360 mg Diltiazem HCl (Cardizem Cd) 360 mg PO DAILY [facility] Last Admin: 12/08/18 08:46 Dose: 360 mg Diphenhydramine HCl (Benadryl) 25 mg IVPUSH ONETIME ONE Stop: 12/05/18 13:26 Last Admin: 12/05/18 13:44 Dose: 25 mg Docusate Sodium (Colace) 100 mg PO BID PRN PRN Reason: Constipation Folic Acid (Folic Acid) 1 mg PO DAILY [facility] Last Admin: 12/08/18 08:46 Dose: 1 mg Heparin Sodium (Porcine) (Heparin Sodium) 5,000 units SUBCUT Q8H [facility] Last Admin: 12/08/18 06:47 Dose: 5,000 units Hydrocortisone (Hydrocortisone 1% Crm) 0 gm TOP BID [facility] Last Admin: 12/08/18 08:47 Dose: 1 applic Ceftriaxone Sodium/Dextrose 1 (gm/ Premix) 50 mls @ 100 mls/hr IV ONETIME ONE Stop: 12/05/18 13:57 Last Admin: 12/05/18 13:44 Dose: 100 mls/hr Sodium Chloride (Normal Saline) 1,000 mls @ 125 mls/hr IV STAT ONE Stop: 12/05/18 21:27 Last Admin: 12/05/18 13:44 Dose: 125 mls/hr Sodium Chloride (Normal Saline) 1,000 mls @ 75 mls/hr IV ASDIRECTED ON [facility] Last Admin: 12/07/18 12:19 Dose: 75 mls/hr Ceftriaxone Sodium/Dextrose 1 (gm/ Premix) 50 mls @ 100 mls/hr IV Q24H [facility] Last Admin: 12/07/18 13:29 Dose: 100 mls/hr Ceftriaxone Sodium 1 gm/ (Sodium Chloride) 50 mls @ 100 mls/hr IV Q24H [facility] Insulin Aspart (Novolog) 0 unit SUBCUT TIDAC ON [facility]; Protocol Last Admin: 12/08/18 06:49 Dose: Not Given Metoprolol Succinate (Toprol Xl) 50 mg PO BID [facility] Last Admin: 12/08/18 08:45 Dose: 50 mg Metoprolol Succinate (Toprol Xl) 50 mg PO ONETIME ONE Stop: 12/05/18 16:40 Last Admin: 12/05/18 16:53 Dose: 50 mg Ondansetron HCl (Zofran) 4 mg IVPUSH Q4H PRN PRN Reason: Nausea Sodium Bicarbonate (Sodium Bicarbonate) 1,300 mg PO BID [facility] Last Admin: 12/08/18 08:47 Dose: 1,300 mg Sodium Chloride (Saline Flush) 10 ml FLUSH ASDIRECTED PRN PRN Reason: Keep Vein Open Sodium Chloride (Saline Flush) 2.5 ml FLUSH ASDIRECTED PRN PRN Reason: Keep Vein Open
[2018-12-08] MEDS ORDERED: cefTRIAXone 1 GM in Sodium Chloride 0.9% 50 ML IV SCH (13:00)
== END 2018-12-08 10:55 | disposition home or self-care (01) ==
LOC: MW.ED 12:01 → MW.MS 14:42
PROVIDERS: ADMIT Internal Medicine; ATTEND Internal Medicine
DX: N30.00 Acute cystitis without hematuria (principal); B96.89 Other specified bacterial agents as the cause of diseases classified elsewhere; R41.82 Altered mental status, unspecified; I12.9 Hypertensive chronic kidney disease with stage 1 through stage 4 chronic kidney disease, or unspecified chronic kidney disease; E11.22 Type 2 diabetes mellitus with diabetic chronic kidney disease; N18.4 Chronic kidney disease, stage 4 (severe); I48.91 Unspecified atrial fibrillation; N40.1 Benign prostatic hyperplasia with lower urinary tract symptoms; N39.498 Other specified urinary incontinence; N17.9 Acute kidney failure, unspecified; Z87.891 Personal history of nicotine dependence; Z79.4 Long term (current) use of insulin; Z79.899 Other long term (current) drug therapy; Z66 Do not resuscitate
CPT/HCPCS: 36415; 70450; 71045; 76775; 80048; 80053; 81001; 82570; 82962; 83605; 84300; 84443; 84484; 85025; 85027; 85610; 85730; 87086; 87088; 87186; 93005; 96361; 96365; 96375; 97161; 99285; A9270; J0696; J1200; J1644; J1815; J7040; 96372; 96376; G0378